=== PATIENT | female | born 1945 | race Caucasian/White ===

== ENCOUNTER → 2017-11-10 08:00 | Outpatient (CLI) | payer MEDICARE, SELFPAY ==
[2017-11-10 09:24] LABS: Thyroid Stimulating Hormone 0.95 uIU/mL (0.47-4.68)
== END ==
PROVIDERS: Family Provider Family Medicine; PCP Family Medicine; Visit Provider Family Medicine
DX: E03.9 Hypothyroidism, unspecified (principal)
CPT/HCPCS: 36415; 84443

== ENCOUNTER → 2018-05-18 08:54 | Outpatient (CLI) | payer MEDICARE, SELFPAY ==
--- NOTE | 2018-05-18 08:56 | DI.RAD.S_ITS ---
PROCEDURE: XR CHEST 2V INDICATIONS: persistent cough TECHNIQUE: 2 views of the chest were acquired. COMPARISON: [facility], CHEST 2 VIEW, 11/22/2010, 9:06. [facility], CHEST 2 VIEW, 06/18/2016, 10:24. FINDINGS: Surgical changes and devices: None. Lungs and pleura: Diffuse, widespread bilateral interstitial opacities are present and appear similar to prior examination. No focal lung consolidation, pleural effusion or pneumothorax. Mediastinum: Mediastinal contours are normal. Heart size is normal. Bones and chest wall: No suspicious bony abnormalities. Soft tissues appear unremarkable. IMPRESSION: Interstitial densities again seen bilaterally which appear similar to prior examination and are likely chronic. Recommend clinical correlation to exclude superimposed acute interstitial process. Dictated by: Derek Byers [facility] Interpreted: Vilma Ramos MD on 05/18/2018 at 9:45 Approved by: Vilma Ramos MD, PhD on 05/18/2018 at 13:09
== END ==
PROVIDERS: Family Provider Family Medicine; PCP Family Medicine; Visit Provider Physician Assistant
DX: R05 Cough (principal); J98.4 Other disorders of lung
CPT/HCPCS: 71046

== ENCOUNTER → 2018-05-21 12:07 | Outpatient (CLI) | payer MEDICARE, SELFPAY ==
[2018-05-21 13:11] LABS: BUN Creatinine Ratio 17.5 (6-22); Blood Urea Nitrogen 21 mg/dL (7-17); Estimated Glomerular Filt Rate 43.8 mL/min (>60)
== END ==
PROVIDERS: Family Provider Family Medicine; PCP Family Medicine; Visit Provider Family Medicine
DX: Z01.812 Encounter for preprocedural laboratory examination (principal)
CPT/HCPCS: 36415; 82565; 84520

== ENCOUNTER → 2018-05-25 11:58 | Outpatient (CLI) | payer MEDICARE, SELFPAY ==
--- NOTE | 2018-05-25 12:02 | DI.CT.S_ITS ---
PROCEDURE: CT CHEST WO CON INDICATIONS: Cough TECHNIQUE: Noncontrast 5 mm thick sections acquired from the pulmonary apices to the posterior costophrenic angles. 7 mm thick coronal and sagittal MIP reformats were then acquired. For radiation dose reduction, the following was used: automated exposure control, adjustment of mA and/or kV according to patient size. COMPARISON: [facility], CT, CHEST ABDOMEN WITH CONTRAST, 08/11/2009, 12:14. FINDINGS: Image quality: Excellent. Lungs and pleura: No acute consolidation. No pleural effusions or pneumothorax. Bilateral upper and lower lobe subpleural reticular and ill-defined/groundglass opacities in keeping with presumed interstitial disease which is unchanged. No definite areas of honeycombing are seen. Central and peripheral airways are patent and normal in caliber. Ill-defined groundglass subcentimeter nodular appearance seen on image 25 series 3 in the right upper lobe is minimally more prominent since remote prior study of 08/11/09. If clinically warranted, a followup noncontrast chest CT in 2 years could be performed for further assessment. Mediastinum: Heart size is normal. No pericardial effusion. Coronary calcifications are seen. Surgical clips in the left upper quadrant. No mediastinal adenopathy by size criteria. Thoracic aorta and central pulmonary arteries are normal in size. Esophagus is normal in caliber. No hiatal hernia. Bones and chest wall: No suspicious bony lesions. No vertebral body compression fractures. No axillary or supraclavicular adenopathy by size criteria. Thyroid gland negative. Abdomen: Visualized upper abdominal solid organs and bowel loops appear normal in the absence of contrast. IMPRESSION: Overall, grossly stable appearance of widespread upper and lower lobe interstitial disease since 08/11/09 as discussed above. No definite areas of honeycombing seen. No acute consolidation. Coronary artery disease. Dictated by: Radames Paredes M.D. on 05/25/2018 at 15:30 Approved by: Radames Paredes M.D. on 05/25/2018 at 15:35
== END ==
PROVIDERS: PCP Family Medicine; Visit Provider Family Medicine
DX: R05 Cough (principal); J84.9 Interstitial pulmonary disease, unspecified; I25.10 Atherosclerotic heart disease of native coronary artery without angina pectoris
CPT/HCPCS: 71250

== ENCOUNTER 2018-05-28 12:11 | Emergency (ER) | payer MEDICARE, SELFPAY ==
[2018-05-28 12:18] VITALS: BP 169/103; PULSE 103; RESP 18; TEMP 36.9; O2SAT 94; BMI 31.9
--- NOTE | 2018-05-28 13:14 | ED.URI ---
HPI - URI/Sore Throat <FARIBA Justice - Last Filed: 05/28/18 21:01> General Chief Complaint: Upper Respiratory Symptoms Stated Complaint: cough since before Thanksgiving Time Seen by Provider: 05/28/18 13:07 Source: patient Mode of arrival: ambulatory Limitations: no limitations History of Present Illness HPI Narrative: 73-year-old female with history of hypertension and is a nonsmoker he here for complaint of a persistent cough over the past several weeks. She reports that the cough started around Thanksgiving time frame. She was seen for this by her primary care provider and also walk-in clinic. She had completed a round of antibiotics which did not help. She was then seen by primary care who ordered a chest x-ray chest x-ray was negative. A CT of the chest was further ordered a few days ago and was obtained and was also negative for any acute findings. Patient denies having any fevers. She does reported that the primary care did treat her with Flonase as she was suspecting that this is due to postnasal drip. Patient has been using the Flonase for the past couple of days. She has no shortness of breath no chest pain. Positive p.o. intake although she does report decreased appetite and some nausea with no vomiting No other concerns or complaints at this timeframe. Patient does desire blood work to ensure no complications. Related Data Home Medications Medication Instructions Recorded Confirmed ASPIRIN (#ASPI-COR) 81 mg PO Q DAY #0 09/11/11 05/18/18 CA PANTOTHENATE/FOLIC ACID/VIT 1 tab PO Q DAY #0 09/11/11 05/18/18 (MULTIVITAMIN) FLAXSEED (FLAXSEED OIL) 1 cap PO Q DAY #0 09/11/11 05/18/18 cholecalciferol (vitamin D3) 2,000 unit PO QDAY #0 01/04/13 05/18/18 [Vitamin D3] Previous Rx's Medication Instructions Recorded levothyroxine 100 mcg capsule 100 mcg PO DAILY #90 tab 11/10/17 atorvastatin [Lipitor] 20 mg PO HS #90 tab 05/05/18 nystatin 100,000 unit/mL oral 5 ml PO QID 10 Days #200 ml 05/25/18 suspension benzonatate [Tessalon Perles] 100 mg PO TID PRN #15 cap 05/28/18 Allergies Allergy/AdvReac Type Severity Reaction Status Date / Time bacitracin [BACITRACIN] Allergy Mild REDNESS Verified 05/28/18 12:18 ADHESIVES Allergy Mild SKIN Uncoded 05/28/18 12:18 IRRITATION Review of Systems <FARIBA Justice - Last Filed: 05/28/18 21:01> Constitutional Denies chills, Denies fever(s), Denies lethargy and Denies weakness Eyes Denies change in vision, Denies eye discharge, Denies irritation and Denies loss of vision ENT Ears, Nose, Mouth, and Throat: Denies change in voice, Denies neck pain, Denies sore throat and Denies throat swelling Cardiovascular Denies chest pain, Denies irregular heart rhythm, Denies lightheadedness, Denies palpitations and Denies orthopnea Respiratory Reports cough and Denies wheezing Gastrointestinal Gastrointestinal: Denies abdominal pain, Denies change in bowel habits, Denies diarrhea, Denies nausea and Denies vomiting Genitourinary Denies hematuria, Denies flank pain, Denies urinary incontinence and Denies urinary urgency Musculoskeletal Denies neck pain Integumentary/Breasts Denies pruritus, Denies erythema, Denies rash and Denies wounds Neurologic Denies confusion, Denies loss of vision and Denies weakness Psychiatric Denies anxiety, Denies confusion, Denies depression, Denies homicidal ideation and Denies suicidal ideation Endocrine Denies palpitations Hematologic/Lymphatic Denies easy bruising Allergic/Immunologic Denies urticaria, Denies throat swelling and Denies wheezing Exam <FARIBA Justice - Last Filed: 05/28/18 21:01> Initial Vital Signs Initial Vital Signs: Vital Signs Temperature 98.4 F 05/28/18 12:18 Pulse Rate 103 H 05/28/18 12:18 Respiratory Rate 18 05/28/18 12:18 Blood Pressure 169/103 H 05/28/18 12:18 Pulse Oximetry 94 05/28/18 12:18 Const General: cooperative and well developed Nutritional Appearance: well nourished Orientation: alert, awake, oriented x3 and not confused HENMT Mouth: oral mucosae normal and moist mucous membranes Eyes Conjunctivae: conjunctivae normal Sclera: sclerae normal Pupils: PERRL EOM: EOM intact bilaterally Resp Effort & Inspection: normal respiratory effort, able to speak in complete sentences, no respiratory distress and no use of accessory muscles Auscultation: clear to auscultation bilaterally, no rales, no rhonchi and no wheezes Cardio Rate: regular rate Rhythm: regular rhythm Heart Sounds: no click, no gallops, no murmurs and no rubs GI Inspection: non-distended Palpation: soft, no hepatosplenomegaly, No guarding, No pulsatile mass and No tender Auscultation: normal bowel sounds Skin General: no rashes or lesions noted, No jaundice and No petechiae Neuro General: alert, oriented x3, gait normal and no focal motor deficits Speech: speech normal <Eula Berman DO - Last Filed: 05/29/18 19:23> Initial Vital Signs Initial Vital Signs: Vital Signs Temperature 98.4 F 05/28/18 12:18 Pulse Rate 103 H 05/28/18 12:18 Respiratory Rate 18 05/28/18 12:18 Blood Pressure 169/103 H 05/28/18 12:18 Pulse Oximetry 94 05/28/18 12:18 Course <FARIBA Justice - Last Filed: 05/28/18 21:01> Orders Ordered: Discontinued Medications Sodium Chloride (Normal Saline 0.9%) 1,000 mls @ 1,000 mls/hr IV BOLUS ONE Stop: 05/28/18 14:37 Last Infusion: 05/28/18 15:08 Dose: 0 mls/hr Admin: 05/28/18 13:58 Dose: 1,000 mls/hr Ondansetron HCl (Zofran) 4 mg IV NOW ONE Stop: 05/28/18 13:39 Last Admin: 05/28/18 13:58 Dose: 4 mg Vital Signs - 8 hr 05/28/18 13:55 05/28/18 15:42 Pulse Rate 89 91 H Respiratory Rate 16 20 Blood Pressure 176/86 H Blood Pressure [Right Arm] 150/86 H Pulse Oximetry 96 100 <Eula Berman DO - Last Filed: 05/29/18 19:23> Orders Ordered: Discontinued Medications Sodium Chloride (Normal Saline 0.9%) 1,000 mls @ 1,000 mls/hr IV BOLUS ONE Stop: 05/28/18 14:37 Last Infusion: 12/20/18 15:08 Dose: 0 mls/hr Admin: 05/28/18 13:58 Dose: 1,000 mls/hr Ondansetron HCl (Zofran) 4 mg IV NOW ONE Stop: 05/28/18 13:39 Last Admin: 05/28/18 13:58 Dose: 4 mg Vital Signs - 8 hr 05/28/18 13:55 05/28/18 15:42 Pulse Rate 89 91 H Respiratory Rate 16 20 Blood Pressure 176/86 H Blood Pressure [Right Arm] 150/86 H Pulse Oximetry 96 100 MDM - URI/Sore Throat <FARIBA Justice - Last Filed: 05/28/18 21:01> Lab Data Result diagrams: 05/28/18 12:58 05/28/18 12:58 Lab Results 05/28/18 05/28/18 Range/Units 12:58 12:58 WBC 10.0 (4.5-11.0) X10^3/uL RBC 4.99 (4.0-5.2) X10^6/uL Hgb 15.3 (12.0-16.0) g/dL Hct 45.6 (36-46) % MCV 91.4 (80-100) fL MCH 30.6 (26-34) PG MCHC 33.5 (30-36) % RDW 13.6 (11.6-14.8) % Plt Count 312 (150-400) X10^3/uL Neut % (Auto) 71.4 (50-75) % Lymph % (Auto) 16.8 L (25-40) % Sebastian % (Auto) 9.0 (3-14) % Eos % (Auto) 2.1 (2-4) % Baso % (Auto) 0.7 (0-2) % Neut # (Auto) 7200 H (1013-2149) /uL Sodium 143 (137-145) mmol/L Potassium 4.4 (3.4-5.1) mmol/L Chloride 103 (98-107) mmol/L Carbon Dioxide 25 (22-32) mmol/L BUN 24 H (7-17) mg/dL Creatinine 1.00 (0.52-1.04) mg/dL Estimated GFR 54.1 L (>60) mL/min BUN/Creatinine Ratio 24.0 H (6-22) Glucose 136 H (80-110) mg/dL Calcium 10.4 H (8.4-10.2) mg/dL Urine Dip Bedside Urine Glucose Negative Bedside Urine Bilirubin - Negative Bedside Urine Ketone - Negative Urine Specific [place] 1.030 Bedside Urine Occult Blood - Negative Bedside Urine pH 6.0 Bedside Urine Protein - Negative Bedside Urine Urobilinogen - Negative Bedside Urine Nitrite - Negative Bedside Urine Leukocytes - Negative Esterase MDM Narrative Medical decision making narrative: Recent x-ray and chest CT were obtained by primary care and were negative for any acute findings. Vital signs are normal. With recent negative chest CT that was negative does not present as being infectious pneumonia at this timeframe. CBC and Chem panel ,poc urinalysis were obtained and were unremarkable with exception of decreased GFR however this is consistent with her prior lab values. Will have her continue using the Flonase as prescribed along with plenty of fluids saline irrigation the nasal passageways. Will at prescription of Tessalon Perles to see if it helps with her cough. Follow up with primary care provider next week. For any worsening symptoms return to the emergency room. <Eula Berman, DO - Last Filed: 05/29/18 19:23> Lab Data Lab Results 05/28/18 05/28/18 Range/Units 12:58 12:58 WBC 10.0 (4.5-11.0) X10^3/uL RBC 4.99 (4.0-5.2) X10^6/uL Hgb 15.3 (12.0-16.0) g/dL Hct 45.6 (36-46) % MCV 91.4 (80-100) fL MCH 30.6 (26-34) PG MCHC 33.5 (30-36) % RDW 13.6 (11.6-14.8) % Plt Count 312 (150-400) X10^3/uL Neut % (Auto) 71.4 (50-75) % Lymph % (Auto) 16.8 L (25-40) % Sebastian % (Auto) 9.0 (3-14) % Eos % (Auto) 2.1 (2-4) % Baso % (Auto) 0.7 (0-2) % Neut # (Auto) 7200 H (0468-2978) /uL Sodium 143 (137-145) mmol/L Potassium 4.4 (3.4-5.1) mmol/L Chloride 103 (98-107) mmol/L Carbon Dioxide 25 (22-32) mmol/L BUN 24 H (7-17) mg/dL Creatinine 1.00 (0.52-1.04) mg/dL Estimated GFR 54.1 L (>60) mL/min BUN/Creatinine Ratio 24.0 H (6-22) Glucose 136 H (80-110) mg/dL Calcium 10.4 H (8.4-10.2) mg/dL Urine Dip Bedside Urine Glucose Negative Bedside Urine Bilirubin - Negative Bedside Urine Ketone - Negative Urine Specific [place] 1.030 Bedside Urine Occult Blood - Negative Bedside Urine pH 6.0 Bedside Urine Protein - Negative Bedside Urine Urobilinogen - Negative Bedside Urine Nitrite - Negative Bedside Urine Leukocytes - Negative Esterase Discharge Plan Departure Patient Disposition: Home Clinical Impression: Cough Discharge Date/Time: 05/28/18 15:43 Interventions: ED Discharge Assessment Last Done: 05/28/18 15:42 Instructions: Cough Activity Restrictions/Additional Instructions: Recent chest x-ray and chest CT were negative for any acute findings. No infectious causes are seen on these imaging. Laboratory results today was unremarkable. Use currently prescribed medications as directed by your primary care provider. May also use saline irrigation to the nasal passages to help with any congestion. Tessalon Perles are prescribed to help with cough use as directed. For any worsening symptoms return to the emergency room. Plenty of fluids and rest. Prescriptions: New benzonatate [Tessalon Perles] 100 mg capsule 100 mg PO TID PRN (Reason: cough) Qty: 15 RF: 0 No Action FLAXSEED (FLAXSEED OIL) 1 cap PO Q DAY Qty: 0 RF: 0 ASPIRIN (#ASPI-COR) 81 mg PO Q DAY Qty: 0 RF: 0 CA PANTOTHENATE/FOLIC ACID/VIT (MULTIVITAMIN) 1 tab PO Q DAY Qty: 0 RF: 0 cholecalciferol (vitamin D3) [Vitamin D3] 2,000 UNIT capsule 2,000 unit PO QDAY Qty: 0 RF: 0 levothyroxine 100 mcg capsule 100 mcg PO DAILY Qty: 90 RF: 3 atorvastatin [Lipitor] 20 mg tablet 20 mg PO HS Qty: 90 RF: 3 nystatin 100,000 unit/mL suspension 5 ml PO QID 10 Days Qty: 200 RF: 0 Referrals: Lizette Clark MD [Primary Care Provider] - <Eula Berman DO - Last Filed: 05/29/18 19:23> Cosign ED Attending Cosignature Attestation: I was immediately available in the department for consultation. This documentation has been reviewed and I agree with assessment and plan. Supervised by Eula Berman DO
[2018-05-28 13:55] VITALS: BP 150/86; PULSE 89; RESP 16; O2SAT 96
[2018-05-28] MEDS: ONDANSETRON 4 MG/2 ML INJ IV (13:58)
[2018-05-28] MEDS: SODIUM CHLORIDE 0.9% 1,000 ML 1000 ML IV (13:58)
[2018-05-28 14:02] LABS: Add Manual Diff / Slide Review NO; Basophils Percent Auto 0.7 % (0-2); Eosinophils Percent Auto 2.1 % (2-4); Hematocrit 45.6 % (36-46); Hemoglobin 15.3 g/dL (12.0-16.0); Lymphocytes Percent Auto 16.8 % (25-40); Mean Corpuscular HGB Conc 33.5 % (30-36); Mean Corpuscular Hemoglobin 30.6 PG (26-34); Mean Corpuscular Volume 91.4 fL (80-100); Neutrophils Absolute Auto 7200 /uL (1500-7000); Neutrophils Percent Auto 71.4 % (50-75); Platelet Count 312 X10^3/uL (150-400); Red Blood Cell Count 4.99 X10^6/uL (4.0-5.2); Red Cell Distribution Width 13.6 % (11.6-14.8)
[2018-05-28 14:07] LABS: Blood Urea Nitrogen 24 mg/dL (7-17); Calcium 10.4 mg/dL (8.4-10.2); Carbon Dioxide 25 mmol/L (22-32); Chloride 103 mmol/L (98-107); Estimated Glomerular Filt Rate 54.1 mL/min (>60); Glucose 136 mg/dL (80-110); HEMOLYSIS 36 (0-50); Potassium 4.4 mmol/L (3.4-5.1); Sodium 143 mmol/L (137-145)
[2018-05-28 15:42] VITALS: BP 176/86; PULSE 91; RESP 20; O2SAT 100
== END 2018-05-28 15:45 | disposition home or self-care (01) ==
PROVIDERS: Emergency Provider Nurse Practitioner Family; PCP Family Medicine
DX: R05 Cough (principal)
CPT/HCPCS: 80048; 81003; 85025; 96361; 96374; 99283; 99284; J2405

== ENCOUNTER → 2018-06-15 08:16 | Outpatient (CLI) | payer MEDICARE, SELFPAY ==
[2018-06-15 09:07] LABS: Hemoglobin A1C% w Est Avg Glu 6.1 % (4.0-6.0)
[2018-06-15 09:12] LABS: Blood Urea Nitrogen 15 mg/dL (7-17); Estimated Glomerular Filt Rate 54.1 mL/min (>60)
[2018-06-15 09:22] LABS: Vitamin D 25 Hydroxy (D3) 70.8 ng/mL (30.0-100.0)
[2018-06-15 09:41] LABS: TSH w/ Reflex to FT4 0.35 uIU/mL (0.47-4.68)
[2018-06-15 09:53] LABS: Vitamin B12 681 pg/mL (239-931)
[2018-06-15 10:07] LABS: Free T4, Direct Thyroxine 1.38 ng/dL (0.78-2.19)
[2018-06-18 09:22] LABS: 5-HIAA, Urine 3.7 mg/24 h (< OR = 6.0); Total Volume 2590 mL
[2018-06-18 17:11] LABS: Total Volume 2590 mL; Urine, Metanephrine 35 mcg/24 h (90-315); Urine, Normetanephrine 274 mcg/24 h (122-676)
[2018-06-20 14:45] LABS: Creatinine, 24 Urine 1.32 g/24 h (0.50-2.15); Total Catecholamines 43 mcg/24 h (26-121); Total Volume: 2590 mL
== END ==
PROVIDERS: Family Provider Family Medicine; PCP Family Medicine; Visit Provider Physician Assistant
DX: R61 Generalized hyperhidrosis (principal); Z01.812 Encounter for preprocedural laboratory examination; E11.9 Type 2 diabetes mellitus without complications; E55.9 Vitamin D deficiency, unspecified
CPT/HCPCS: 36415; 82306; 82384; 82565; 82570; 82607; 83036; 83497; 83835; 84439; 84443; 84520

== ENCOUNTER → 2018-08-06 10:44 | Outpatient (CLI) | payer MEDICARE, SELFPAY ==
[2018-08-06 13:22] LABS: Thyroid Stimulating Hormone 0.78 uIU/mL (0.47-4.68)
== END ==
PROVIDERS: Family Provider Family Medicine; PCP Family Medicine; Visit Provider Family Medicine
DX: E03.9 Hypothyroidism, unspecified (principal)
CPT/HCPCS: 36415; 84443

== ENCOUNTER → 2018-11-17 10:42 | Outpatient (CLI) | payer MEDICARE, SELFPAY ==
[2018-11-17 11:55] LABS: Hemoglobin A1C% w Est Avg Glu 5.9 % (4.0-6.0)
[2018-11-17 12:02] LABS: BUN Creatinine Ratio 18.2 (6-22); Blood Urea Nitrogen 20 mg/dL (7-17); Carbon Dioxide 27 mmol/L (22-32); Chloride 103 mmol/L (98-107); Estimated Glomerular Filt Rate 48.4 mL/min (>60); Glucose 116 mg/dL (80-110); HEMOLYSIS < 15 (0-50); Potassium 4.8 mmol/L (3.4-5.1); Sodium 140 mmol/L (137-145)
[2018-11-17 12:32] LABS: Thyroid Stimulating Hormone 0.51 uIU/mL (0.47-4.68)
[2018-11-17 12:51] LABS: Vitamin B12 600 pg/mL (239-931)
== END ==
PROVIDERS: PCP Family Medicine; Visit Provider Family Medicine
DX: E11.9 Type 2 diabetes mellitus without complications (principal); I12.9 Hypertensive chronic kidney disease with stage 1 through stage 4 chronic kidney disease, or unspecified chronic kidney disease; N18.3 Chronic kidney disease, stage 3 (moderate); R20.2 Paresthesia of skin; E03.9 Hypothyroidism, unspecified
CPT/HCPCS: 36415; 80048; 82607; 83036; 84443

== ENCOUNTER → 2019-03-25 09:17 | Outpatient (CLI) | payer MEDICARE, SELFPAY ==
[2019-03-25 09:46] LABS: Add Manual Diff / Slide Review NO; Basophils Absolute Auto 100 /uL (0-100); Basophils Percent Auto 0.7 % (0-2); Eosinophils Absolute Auto 500 /uL (0-450); Eosinophils Percent Auto 6.4 % (2-4); Hematocrit 43.4 % (36-46); Hemoglobin 14.7 g/dL (12.0-16.0); Lymphocytes Absolute Auto 2000 /uL (1100-4500); Lymphocytes Percent Auto 24.5 % (25-40); Mean Corpuscular HGB Conc 33.8 % (30-36); Mean Corpuscular Hemoglobin 30.7 PG (26-34); Mean Corpuscular Volume 90.7 fL (80-100); Monocytes Absolute Auto 700 /uL (0-900); Monocytes Percent Auto 8.9 % (3-14); Neutrophils Absolute Auto 4700 /uL (1500-7000); Neutrophils Percent Auto 59.5 % (50-75); Platelet Count 230 X10^3/uL (150-400); Red Blood Cell Count 4.79 X10^6/uL (4.0-5.2); Red Cell Distribution Width 13.1 % (11.6-14.8)
[2019-03-25 10:08] LABS: Alanine Aminotransferase 32 IU/L (9-52); Albumin 4.1 g/dL (3.5-5.0); Albumin Globulin Ratio 1.3 (1.0-2.8); Alkaline Phosphatase 74 U/L (38-126); Aspartate Aminotransferase 31 IU/L (14-36); Bilirubin Total 0.6 mg/dL (0.2-1.3); Blood Urea Nitrogen 19 mg/dL (7-17); Calcium 9.8 mg/dL (8.4-10.2); Carbon Dioxide 23 mmol/L (22-32); Chloride 109 mmol/L (98-107); Cholesterol 163 mg/dL (140-199); Estimated Glomerular Filt Rate 53.9 mL/min (>60); Globulin 3.2 g/dL (1.7-4.1); Glucose 134 mg/dL (80-110); HDL Cholesterol 32 mg/dL (40-60); HEMOLYSIS < 15 (0-50); LDL Cholesterol Calculated 80 mg/dL (<100); Potassium 4.4 mmol/L (3.4-5.1); Sodium 140 mmol/L (137-145); Total Protein 7.3 g/dL (6.3-8.2); Triglycerides 254 mg/dL (35-150)
[2019-03-25 10:35] LABS: Thyroid Stimulating Hormone 0.11 uIU/mL (0.47-4.68)
[2019-03-25 11:41] LABS: Creatinine Urine Random 124.1 mg/dL
[2019-03-25 11:47] LABS: Microalbumi Creatinin Ratio Ur 20.9 ug/mg CR (<30); Microalbumin Urine Random 2.6 mg/dL (0-1.6)
[2019-03-25 15:22] LABS: Hemoglobin A1C% w Est Avg Glu 5.9 % (4.0-6.0)
== END ==
PROVIDERS: PCP Family Medicine; Visit Provider Family Medicine
DX: E03.9 Hypothyroidism, unspecified (principal); E11.9 Type 2 diabetes mellitus without complications; E78.2 Mixed hyperlipidemia; I10 Essential (primary) hypertension; N18.3 Chronic kidney disease, stage 3 (moderate)
CPT/HCPCS: 36415; 80053; 80061; 82043; 82570; 83036; 84443; 85025

== ENCOUNTER → 2019-12-14 08:16 | Outpatient (CLI) | payer MEDICARE, SELFPAY ==
[2019-12-14 08:58] LABS: BUN Creatinine Ratio 18.3 (6-22); Blood Urea Nitrogen 19 mg/dL (7-17); Carbon Dioxide 26 mmol/L (22-32); Chloride 107 mmol/L (98-107); Cholesterol 173 mg/dL (140-199); Estimated Glomerular Filt Rate 51.5 mL/min (>60); Glucose 138 mg/dL (80-110); HDL Cholesterol 35 mg/dL (40-60); HEMOLYSIS 18 (0-50); LDL Cholesterol Calculated 95 mg/dL (<100); Potassium 5.3 mmol/L (3.4-5.1); Sodium 140 mmol/L (137-145); Triglycerides 215 mg/dL (35-150)
[2019-12-14 09:15] LABS: Free T4, Direct Thyroxine 1.13 ng/dL (0.78-2.19)
[2019-12-14 09:28] LABS: Thyroid Stimulating Hormone 1.14 uIU/mL (0.47-4.68)
[2019-12-14 14:08] LABS: Aspartate Aminotransferase 40 IU/L (14-36)
== END ==
PROVIDERS: PCP Internal Medicine; Referring Provider Internal Medicine; Visit Provider Internal Medicine
DX: E78.2 Mixed hyperlipidemia (principal); E03.9 Hypothyroidism, unspecified; R03.0 Elevated blood-pressure reading, without diagnosis of hypertension
CPT/HCPCS: 36415; 80048; 80061; 84436; 84439; 84443; 84450

== ENCOUNTER 2019-12-17 07:49 | Inpatient (IN) | payer MEDICARE, SELFPAY ==
[2019-12-17] VITALS (29 sets, daily range): BP systolic 118–208; BP diastolic 71–103; PULSE 70–128; RESP 14–25; TEMP 35.9–37.2; O2SAT 92–96; BMI 30.7
--- NOTE | 2019-12-17 | DI.RAD.S_ITS ---
PROCEDURE: XR HIP W PEL IF DONE LT 2V INDICATIONS: LEFT HIP FX REPAIR TECHNIQUE: Fluoroscopic images were obtained during an operative procedure and submitted for interpretation following the completion of the procedure. COMPARISON: [facility], , XR HIP W PEL IF DONE LT 2V, 12/17/2019, 8:01. FINDINGS: These fluoroscopic images were performed for intraoperative localization. On these images, 3 left femoral neck screws have been placed. Please correlate with intraoperative findings. IMPRESSION: Normal intraoperative examination. Dictated by: Osito Adams M.D. on 12/17/2019 at 15:06 Approved by: Osito Adams M.D. on 12/17/2019 at 15:06
--- NOTE | 2019-12-17 08:07 | DI.RAD.S_ITS ---
PROCEDURE: XR HIP W PEL IF DONE LT 2V INDICATIONS: fall with hip pain TECHNIQUE: AP pelvis with lateral view(s) of the left hip(s). COMPARISON: None. FINDINGS: Bones: Contour irregularity involving subcapital region of left femoral neck concerning for left femoral neck fracture. Lateral hip joint osteophytic changes are seen. No evidence of avascular necrosis of femoral head. Pelvic ring appears intact. No suspicious bony lesions. Soft tissues: The visualized bowel gas pattern is normal. No suspicious soft tissue calcifications. IMPRESSION: Finding is concerning for a minimally displaced left femoral neck fracture. Dictated by: Caden Millan M.D. on 12/17/2019 at 8:45 Approved by: Caden Millan M.D. on 12/17/2019 at 8:46
--- NOTE | 2019-12-17 08:32 | ED_ITS ---
HPI - Fall General Chief Complaint: Fall Stated Complaint: FALL LAST NIGHT Time Seen by Provider: 12/17/19 07:50 Source: patient Mode of arrival: Wheelchair Limitations: no limitations History of Present Illness HPI Narrative: 74-year-old femaleNonsmoker with a history of hypothyroidism, hypertension and hyperlipidemia presents with her and a chief complaint of left hip pain after an accidental fall yesterday. She was caring multiple items down some stairs and her hands were full and she misstepped and fell onto her left hip. She denies any head, neck or back pain. She takes no blood thinners. She had breakfast at about 7:00 a.m. but has been NPO since. She has pain with range of motion and improvement with rest. She denies numbness, tingling or weakness. MD complaint: fall Onset (ago): hour(s) Fall from: standing Fall witnessed: no Place fall occurred: home Loss of consciousness: none Prolonged down time: no Symptoms prior to fall: none Context: tripped/slipped Location of injury: pelvis Severity: moderate Quality: aching Associated symptoms (after fall): unable to walk Related Data Home Medications Medication Instructions Recorded Confirmed ASPIRIN (#ASPI-COR) 81 mg PO Q DAY #0 09/11/11 12/17/19 CA PANTOTHENATE/FOLIC ACID/VIT 1 tab PO Q DAY #0 09/11/11 12/17/19 (MULTIVITAMIN) FLAXSEED (FLAXSEED OIL) 1 cap PO Q DAY #0 09/11/11 12/17/19 cholecalciferol (vitamin D3) 2,000 unit PO QDAY #0 01/04/13 12/17/19 [Vitamin D3] calcium carbonate [Calcium 500] 1,000 mg PO DAILY 12/17/19 12/17/19 Previous Rx's Medication Instructions Recorded cetirizine 10 mg capsule 10 mg PO DAILY #30 cap 06/12/18 atorvastatin [Lipitor] 20 mg PO HS #90 tab 11/19/18 levothyroxine 100 mcg tablet 100 mcg PO DAILY #60 tab 03/31/19 levothyroxine 88 mcg capsule 88 mcg PO DAILY #60 cap 03/31/19 Allergies Allergy/AdvReac Type Severity Reaction Status Date / Time bacitracin [BACITRACIN] Allergy Mild REDNESS Verified 07/10/20 08:01 ADHESIVES Allergy Mild SKIN Uncoded 03/31/19 13:37 IRRITATION Review of Systems Constitutional Constitutional: Denies chills, Denies fatigue, Denies fever(s), Denies frequent falls, Denies lethargy and Denies weakness Eyes Eyes: Denies change in vision, Denies eye discharge, Denies irritation and Denies loss of vision ENT Ears, Nose, Mouth, and Throat: Denies change in voice, Denies dizziness, Denies neck pain, Denies sore throat and Denies throat swelling Cardiovascular Cardiovascular: Denies chest pain, Denies irregular heart rhythm, Denies lightheadedness, Denies palpitations, Denies dyspnea, Denies dyspnea on exertion and Denies orthopnea Respiratory Respiratory: Denies cough, Denies dyspnea, Denies dyspnea on exertion and Denies wheezing Gastrointestinal Gastrointestinal: Denies abdominal pain, Denies change in bowel habits, Denies diarrhea, Denies nausea and Denies vomiting Musculoskeletal Musculoskeletal: Reports arthralgias, Reports limited range of motion, Denies neck pain and Denies numbness Integumentary/Breasts Skin/Breast: Denies pruritus, Denies erythema, Denies rash and Denies wounds Neurologic Neurologic: Denies behavioral changes, Denies confusion, Denies dizziness, Denies frequent falls, Denies loss of vision, Denies numbness and Denies weakness Psychiatric Psychiatric: Denies anxiety, Denies behavioral changes, Denies confusion, Denies depression, Denies homicidal ideation and Denies suicidal ideation Endocrine Endocrine: Denies fatigue, Denies flushing and Denies palpitations Hematologic/Lymphatic Hematologic/Lymphatic: Denies easy bruising Allergic/Immunologic Allergic/Immunologic: Denies urticaria, Denies throat swelling and Denies wheezing Patient History Medical History BCC (basal cell carcinoma of skin) (Resolved 1994) Colon polyps (Resolved 1999) Hayfever (Chronic 1969) Interstitial lung disease (Acute) Kidney tumor (benign) (Resolved 08/11/09) Surgical History Anesthesia (Resolved) History of cataract removal with insertion of prosthetic lens (Resolved 2004) History of hysteroscopy (Resolved) History of nephrectomy (Resolved 08/11/09) Status post colonoscopy (Resolved) Family History Brother No problems noted. Father Lung cancer Mother Uterine cancer Social History marital status: number of children: 2 household members: spouse lives independently: Yes caregiver/support person: No housing: house Smoking Status: Never smoker second hand exposure: No alcohol intake: never substance use type: does not use Smoking Status: Never smoker alcohol intake frequency: holidays/special occasions only Substance Use Type: does not use Exam Narrative Exam Narrative: GENERAL: [74] year old patient appears stated age. Well- nourished, well-developed patient, in mild distress. HEAD: Atraumatic. Normocephalic. EYES: Pupils equal round and reactive. Extraocular motions intact. No scleral icterus. No injection or drainage. ENT: Nose without bleeding, purulent drainage. Throat without erythema, tonsillar hypertrophy or exudate. Airway patent. NECK: Trachea midline. Non tender CARDIOVASCULAR: Regular rate and rhythm without murmurs, gallops, or rubs. RESPIRATORY: Clear to auscultation. Breath sounds equal bilaterally. No wheezes, rales, or rhonchi. GASTROINTESTINAL: Abdomen soft, non-tender, nondistended. EXTREMITIES: Left hip tender to palpate, closed, isolated and neurovascularly intact. No obvious shortening or rotation BACK: Nontender without deformity or crepitance. No flank tenderness. NEURO: AOx3. SKIN: No rash or erythema of visible areas Initial Vital Signs Initial Vital Signs: Vital Signs Temperature 98.8 F 12/17/19 07:50 Pulse Rate 91 H 12/17/19 07:50 Respiratory Rate 15 12/17/19 07:50 Blood Pressure 208/103 H 12/17/19 07:50 Pulse Oximetry 93 12/17/19 07:50 Course Orders Ordered: ED Orders 12/17/19 08:05 Complete Blood Count AUTO DIFF Stat 12/17/19 08:07 XR hip w pel if done LT 2V Stat 12/17/19 09:17 Urinalysis and Microscopic Stat Urine Culture Stat 12/17/19 10:45 Basic Metabolic Panel Stat Lactated Ringer's (Lactated Ringers) 1,000 mls @ 42 mls/hr IV CONT SHADI Last Admin: 12/17/19 10:16 Dose: 42 mls/hr Documented by: IDA Discontinued Medications Acetaminophen (Tylenol) 975 mg PO NOW ONE Stop: 12/17/19 09:51 Last Admin: 12/17/19 10:15 Dose: 975 mg Documented by: IDA Diazepam (Valium) 2 mg IV NOW ONE Stop: 12/17/19 09:31 Last Admin: 12/17/19 09:36 Dose: 2 mg Documented by: IDA Gabapentin (Neurontin) 300 mg PO NOW ONE Stop: 12/17/19 09:51 Last Admin: 12/17/19 10:26 Dose: 300 mg Documented by: IDA Sodium Chloride (Normal Saline 0.9%) 500 mls @ 1,000 mls/hr IV BOLUS ONE Stop: 12/17/19 09:02 Last Infusion: 12/17/19 10:13 Dose: 0 mls/hr Documented by: Infusion: 12/17/19 09:36 Dose: 500 mls/hr Documented by: Infusion: 12/17/19 09:00 Dose: 150 mls/hr Documented by: Admin: 12/17/19 08:53 Dose: 1,000 mls/hr Documented by: JAQUELIN Ceftriaxone Sodium/Dextrose (Rocephin) 1 gm in 50 mls @ 100 mls/hr IV NOW ONE Stop: 12/17/19 10:32 Last Infusion: 12/17/19 10:47 Dose: 0 mls/hr Documented by: Admin: 12/17/19 10:15 Dose: 100 mls/hr Documented by: IDA Consultations Consultation #1: discussed with Dr. Griffith, he will add her on this afternoon Consultation #2: Dr. Hebert happy to accept Vital Signs Vital signs: Vital Signs - 8 hr 12/17/19 07:50 12/17/19 08:04 12/17/19 08:30 Temperature 98.8 F Pulse Rate 91 H 107 H 102 H Respiratory Rate 15 Blood Pressure 208/103 H 161/72 H Pulse Oximetry 93 96 95 12/17/19 09:00 12/17/19 09:01 12/17/19 09:30 Temperature Pulse Rate 105 H 102 H 101 H Respiratory Rate Blood Pressure 181/96 H Pulse Oximetry 94 94 94 12/17/19 09:31 12/17/19 09:39 12/17/19 10:00 Temperature Pulse Rate 100 H 100 H 94 H Respiratory Rate Blood Pressure 201/86 H 194/86 H Pulse Oximetry 95 93 93 12/17/19 10:01 12/17/19 10:30 12/17/19 10:31 Temperature Pulse Rate 70 94 H 81 Respiratory Rate Blood Pressure 169/77 H 171/82 H Pulse Oximetry 95 95 94 MDM - Fall Lab Data Result diagrams: 12/17/19 08:05 12/17/19 10:45 Labs: Lab Results 12/17/19 12/17/19 12/17/19 Range/Units 08:05 08:50 09:17 WBC 14.8 H (4.5-11.0) X10^3/uL RBC 4.84 (4.0-5.2) X10^6/uL Hgb 14.9 (12.0-16.0) g/dL Hct 44.3 (36-46) % MCV 91.5 (80-100) fL MCH 30.7 (26-34) PG MCHC 33.6 (30-36) % RDW 13.4 (11.6-14.8) % Plt Count 221 (150-400) X10^3/uL Neut % (Auto) 81.8 H (50-75) % Lymph % (Auto) 7.8 L (25-40) % [place] % (Auto) 6.7 (3-14) % Eos % (Auto) 3.3 (2-4) % Baso % (Auto) 0.4 (0-2) % Neut # (Auto) 04621 H (6881-0238) /uL Lymph # (Auto) 1100 (4939-6478) /uL [place] # (Auto) 1000 H (0-900) /uL Eos # (Auto) 500 H (0-450) /uL Baso # (Auto) 100 (0-100) /uL Sodium (137-145) mmol/L Potassium (3.4-5.1) mmol/L Chloride (98-107) mmol/L Carbon Dioxide (22-32) mmol/L BUN (7-17) mg/dL Creatinine (0.52-1.04) mg/dL Estimated GFR (>60) mL/min BUN/Creatinine Ratio (6-22) Glucose (80-110) mg/dL Calcium (8.4-10.2) mg/dL Urine Color Yellow Urine Appearance Sl cloudy Urine pH 6.5 (4.5-8.0) Ur Specific [place] 1.015 (1.000-1.035) Urine Protein Negative (Negative) Urine Glucose (UA) Negative (Negative) g/dL Urine Ketones Negative (NEGATIVE) Urine Occult Blood Trace-intact (Negative) Urine Nitrate Positive H (Negative) Urine Bilirubin Negative (NEGATIVE) Urine Urobilinogen 0.2 (0.2) E.U./dL Ur Leukocyte Esterase Trace H (NEGATIVE) Urine RBC 0-1/hpf (0-5/HPF) Urine WBC 5-10/hpf H (0-5/HPF) Urine Bacteria Many (>30) H (None) Ur Culture Indicated? Specimen cultured COVID-19 PCR Negative (Negative) 12/17/19 Range/Units 10:45 WBC (4.5-11.0) X10^3/uL RBC (4.0-5.2) X10^6/uL Hgb (12.0-16.0) g/dL Hct (36-46) % MCV (80-100) fL MCH (26-34) PG MCHC (30-36) % RDW (11.6-14.8) % Plt Count (150-400) X10^3/uL Neut % (Auto) (50-75) % Lymph % (Auto) (25-40) % [place] % (Auto) (3-14) % Eos % (Auto) (2-4) % Baso % (Auto) (0-2) % Neut # (Auto) (7873-1259) /uL Lymph # (Auto) (7797-6516) /uL [place] # (Auto) (0-900) /uL Eos # (Auto) (0-450) /uL Baso # (Auto) (0-100) /uL Sodium 140 (137-145) mmol/L Potassium 4.0 D (3.4-5.1) mmol/L Chloride 107 (98-107) mmol/L Carbon Dioxide 25 (22-32) mmol/L BUN 15 (7-17) mg/dL Creatinine 0.89 (0.52-1.04) mg/dL Estimated GFR > 60.0 (>60) mL/min BUN/Creatinine Ratio 16.9 (6-22) Glucose 158 H (80-110) mg/dL Calcium 9.7 (8.4-10.2) mg/dL Urine Color Urine Appearance Urine pH (4.5-8.0) Ur Specific [place] (1.000-1.035) Urine Protein (Negative) Urine Glucose (UA) (Negative) g/dL Urine Ketones (NEGATIVE) Urine Occult Blood (Negative) Urine Nitrate (Negative) Urine Bilirubin (NEGATIVE) Urine Urobilinogen (0.2) E.U./dL Ur Leukocyte Esterase (NEGATIVE) Urine RBC (0-5/HPF) Urine WBC (0-5/HPF) Urine Bacteria (None) Ur Culture Indicated? COVID-19 PCR (Negative) Imaging Data Pelvis Xray : Attestation: I personally reviewed and interpreted this imaging study as follows: My Impression: Left Hip Fx Discharge Plan Departure Patient Disposition: Admitted As Inpatient Clinical Impression: Acute UTI Closed hip fracture Qualifiers: Encounter type: initial encounter Laterality: left Qualified Code(s): S72.002A - Fracture of unspecified part of neck of left femur, initial encounter for closed fracture Referrals: Dorian Villa MD [Primary Care Provider] - Admit Date/Time: 12/17/19 11:24 Admit Provider: Agnes Hebert
[2019-12-17 08:45] LABS: Add Manual Diff / Slide Review NO; Basophils Absolute Auto 100 /uL (0-100); Basophils Percent Auto 0.4 % (0-2); Eosinophils Absolute Auto 500 /uL (0-450); Eosinophils Percent Auto 3.3 % (2-4); Hematocrit 44.3 % (36-46); Hemoglobin 14.9 g/dL (12.0-16.0); Lymphocytes Absolute Auto 1100 /uL (1100-4500); Lymphocytes Percent Auto 7.8 % (25-40); Mean Corpuscular HGB Conc 33.6 % (30-36); Mean Corpuscular Hemoglobin 30.7 PG (26-34); Mean Corpuscular Volume 91.5 fL (80-100); Monocytes Absolute Auto 1000 /uL (0-900); Monocytes Percent Auto 6.7 % (3-14); Neutrophils Absolute Auto 12100 /uL (1500-7000); Neutrophils Percent Auto 81.8 % (50-75); Platelet Count 221 X10^3/uL (150-400); Red Blood Cell Count 4.84 X10^6/uL (4.0-5.2); Red Cell Distribution Width 13.4 % (11.6-14.8); White Blood Cell Count 14.8 X10^3/uL (4.5-11.0)
[2019-12-17] MEDS: SODIUM CHLORIDE 0.9% 500 ML 1000 ML IV (08:53)
[2019-12-17] MEDS: diazePAM 10 MG/2 ML SYRINGE 2 MG IV (09:36)
[2019-12-17 09:39] LABS: Appearance Urine UA SL CLOUDY; Bilirubin Urine UA NEGATIVE (NEGATIVE); Color Urine UA YELLOW; Glucose Urine UA NEGATIVE (Negative); Ketones Urine UA NEGATIVE (NEGATIVE); Leukocyte Esterase Urine UA TRACE (NEGATIVE); Nitrite Urine UA POSITIVE (Negative); Occult Blood Urine UA TRACE-INTACT (Negative); Protein Urine UA NEGATIVE (Negative); Specific Gravity Urine UA 1.015 (1.000-1.035); Urobilinogen Urine UA 0.2 E.U./dL (0.2)
[2019-12-17 09:56] LABS: Bacteria Urine Many (>30); RBC Urine 0-1/HPF (0-5/HPF); WBC Urine 5-10/HPF (0-5/HPF); pH Urine UA 6.5 (4.5-8.0)
[2019-12-17 09:57] LABS: Culture Indicated Urine Specimen Cultured
[2019-12-17 09:58] LABS: COVID19 -Nasal RAPID Negative (Negative)
[2019-12-17] MEDS: ACETAMINOPHEN 325 MG TABLET 975 MG PO (10:15)
[2019-12-17] MEDS: CEFTRIAXONE 1 GM/50 ML FROZ.PIGGY IV (10:15)
[2019-12-17] MEDS: LACTATED RINGERS 1,000 ML 42 ML IV ×2 (10:16→14:16)
[2019-12-17] MEDS: GABAPENTIN 300 MG CAPSULE PO (10:26)
--- NOTE | 2019-12-17 11:02 | PC.NURSE ---
Pt resting in stretcher. denies pain at this time. states she was walking down the stairs carrying something yesterday and she fell on her L hip. No shortening or external rotation. 2+ pulse. +CSM. 16F lewis placed. 1100ml output over 2hrs. tylenol, valium, gabapentin given for pain and spasms. Rocephin given per order. LR infusing at 42ml/hr. awaiting bed placement in acute care for surgery.
[2019-12-17 11:04] LABS: BUN Creatinine Ratio 16.9 (6-22); Blood Urea Nitrogen 15 mg/dL (7-17); Calcium 9.7 mg/dL (8.4-10.2); Carbon Dioxide 25 mmol/L (22-32); Chloride 107 mmol/L (98-107); Estimated Glomerular Filt Rate > 60.0 mL/min (>60); Glucose 158 mg/dL (80-110); HEMOLYSIS < 15 (0-50); Sodium 140 mmol/L (137-145)
--- NOTE | 2019-12-17 12:56 | PM.HP.1 ---
History of Present Illness History of Present Illness Date Patient Seen: 12/17/19 Chief complaint: FALL LAST NIGHT Narrative: The patient is a 74-year-old female with a history of hypertension, hypothyroidism, hyperlipidemia, type 2 diabetes, chronic kidney disease, who was walking down the stairs and tripped and fell. Patient states she has been having pain with her left knee. She is not sure whether her knee gave out. In any event she fell suffering a fracture of the left hip. She denies passing out, she reports no lightheadedness, she did not hit her head. She was somewhat ?dazed after the event. The patient does report a history of hypertension but is not currently on treatment. She also states she has no dysuria hematuria or pyuria. She is aware that her urine was cloudy in the emergency department. She has no shortness of breath or chest pain. She denies any palpitations but is aware of an intermittent irregular heartbeat. Patient has no nausea vomiting or diarrhea. She is admitted to the hospital for inpatient treatment of her acute hip fracture. Patient History Medical History (Updated 12/17/19 @ 13:01 by Agnes Hebert MD) Acquired hypothyroidism (03/29/15) BCC (basal cell carcinoma of skin) (Resolved 1994) Colon polyps (Resolved 1999) Essential hypertension (03/29/15) Hayfever (Chronic 1969) History of colonic polyps (01/30/17) Interstitial lung disease (Acute) Kidney tumor (benign) (Resolved 08/11/09) Mixed hyperlipidemia (03/29/15) Stage 3 chronic kidney disease (03/29/15) Type 2 diabetes mellitus without complication (03/29/15) Surgical History Anesthesia (Resolved) History of cataract removal with insertion of prosthetic lens (Resolved 2004) History of hysteroscopy (Resolved) History of nephrectomy (Resolved 08/11/09) Status post colonoscopy (Resolved) Family & Social History Family History Brother No problems noted. Father Lung cancer Mother Uterine cancer Social History: household members spouse lives independently Yes caregiver/support person No Safety & Behavioral: Feels Safe in Current Yes Environment Been Physically Hurt or No Threatened By a Person Tobacco & Substance use: Smoking Status Never smoker alcohol intake never alcohol intake frequency holiday/special occasion Substance Use Type does not use Meds Home Medications and Allergies Home Medications Medication Instructions Recorded Confirmed Type ASPIRIN (#ASPI-COR) 81 mg PO Q DAY #0 09/11/11 12/17/19 History CA PANTOTHENATE/FOLIC ACID/VIT 1 tab PO Q DAY #0 09/11/11 12/17/19 History (MULTIVITAMIN) FLAXSEED (FLAXSEED OIL) 1 cap PO Q DAY #0 09/11/11 12/17/19 History cholecalciferol (vitamin D3) 2,000 unit PO QDAY #0 01/04/13 12/17/19 History [Vitamin D3] cetirizine 10 mg capsule 10 mg PO DAILY #30 cap 06/12/18 12/17/19 Rx atorvastatin [Lipitor] 20 mg PO HS #90 tab 11/19/18 12/17/19 Rx calcium carbonate [Calcium 500] 1,000 mg PO DAILY 12/17/19 12/17/19 History levothyroxine See Rx Instructions .ROUTE .COMPLEX 12/17/19 12/17/19 History levothyroxine See Rx Instructions .ROUTE .COMPLEX 12/17/19 12/17/19 History Allergies Allergy/AdvReac Type Severity Reaction Status Date / Time bacitracin [BACITRACIN] Allergy Mild REDNESS Verified 12/17/19 08:01 ADHESIVES Allergy Mild SKIN Uncoded 03/31/19 13:37 IRRITATION Review of Systems Review of Systems ROS: Yes All systems reviewed with the patient and are negative except as otherwise documented Exam Vital Signs (past 8 hours): - 12/17/19 07:50 12/17/19 08:04 12/17/19 08:30 Temperature 98.8 F Pulse Rate 91 H 107 H 102 H Respiratory Rate 15 Blood Pressure 208/103 H 161/72 H Pulse Oximetry 93 96 95 12/17/19 09:00 12/17/19 09:01 12/17/19 09:30 Temperature Pulse Rate 105 H 102 H 101 H Respiratory Rate Blood Pressure 181/96 H Pulse Oximetry 94 94 94 12/17/19 09:31 12/17/19 09:39 12/17/19 10:00 Temperature Pulse Rate 100 H 100 H 94 H Respiratory Rate Blood Pressure 201/86 H 194/86 H Pulse Oximetry 95 93 93 12/17/19 10:01 12/17/19 10:30 12/17/19 10:31 Temperature Pulse Rate 70 94 H 81 Respiratory Rate Blood Pressure 169/77 H 171/82 H Pulse Oximetry 95 95 94 12/17/19 11:00 12/17/19 11:30 12/17/19 12:10 Temperature 98.2 F Pulse Rate 98 H 88 128 H Respiratory Rate 16 Blood Pressure 173/79 H 160/74 H 149/97 H Pulse Oximetry 93 93 95 Oxygen Delivery Method Room Air Oxygen Flow Rate 0 Narrative Exam Narrative: Pleasant female resting comfortably in no obvious distress. Patient denies any pain HEENT: Normocephalic atraumatic extraocular muscles are intact oropharynx is clear, neck is supple, no adenopathy or thyromegaly Lungs: Coarse breath sounds bilaterally, no crackles, no wheezing Cardiac exam irregular, normal S1-S2 2/6 systolic ejection murmur Abdomen: Soft nontender nondistended no hepatosplenomegaly Extremities: No edema, left hip not tender, patient is able to raise both lower extremities minimally. Neuro exam patient is awake alert and oriented, speech is fluent cranial nerves are intact strength is symmetric and equal in the upper extremities she is able to lift the right lower extremity, not so much on the left. Sensation is grossly intact, gait is not assessed Psychiatric exam: Patient is awake alert and appropriate, she has no delusions, no tics, no evidence of hallucination Skin exam no obvious lesions Objective Labs Result Diagrams: 12/17/19 08:05 12/17/19 10:45 Labs: Laboratory Results - last 24 hr 12/17/19 12/17/19 12/17/19 08:05 08:50 09:17 WBC 14.8 H RBC 4.84 Hgb 14.9 Hct 44.3 MCV 91.5 MCH 30.7 MCHC 33.6 RDW 13.4 Plt Count 221 Neut % (Auto) 81.8 H Lymph % (Auto) 7.[address] [place] % (Auto) 6.7 Eos % (Auto) 3.3 Baso % (Auto) 0.4 Neut # (Auto) 81736 H Lymph # (Auto) 1100 [place] # (Auto) 1000 H Eos # (Auto) 500 H Baso # (Auto) 100 Sodium Potassium Chloride Carbon Dioxide BUN Creatinine Estimated GFR BUN/Creatinine Ratio Glucose Calcium Urine Color Yellow Urine Appearance Sl cloudy Urine pH 6.5 Ur Specific [place] 1.015 Urine Protein Negative Urine Glucose (UA) Negative Urine Ketones Negative Urine Occult Blood Trace-intact Urine Nitrate Positive H Urine Bilirubin Negative Urine Urobilinogen 0.2 Ur Leukocyte Esterase Trace H Urine RBC 0-1/hpf Urine WBC 5-10/hpf H Urine Bacteria Many (>30) H Ur Culture Indicated? Specimen cultured COVID-19 PCR Negative 12/17/19 10:45 WBC RBC Hgb Hct MCV MCH MCHC RDW Plt Count Neut % (Auto) Lymph % (Auto) [place] % (Auto) Eos % (Auto) Baso % (Auto) Neut # (Auto) Lymph # (Auto) [place] # (Auto) Eos # (Auto) Baso # (Auto) Sodium 140 Potassium 4.0 D Chloride 107 Carbon Dioxide 25 BUN 15 Creatinine 0.89 Estimated GFR > 60.0 BUN/Creatinine Ratio 16.9 Glucose 158 H Calcium 9.7 Urine Color Urine Appearance Urine pH Ur Specific [place] Urine Protein Urine Glucose (UA) Urine Ketones Urine Occult Blood Urine Nitrate Urine Bilirubin Urine Urobilinogen Ur Leukocyte Esterase Urine RBC Urine WBC Urine Bacteria Ur Culture Indicated? COVID-19 PCR Assessment & Plan Assessment & Plan narrative: Impression 1. 74-year-old female admitted to the hospital following a fall, now with a left hip fracture -x-ray confirms a minimally displaced left femoral neck fracture -suspect the fractures related to underlying osteoporosis -patient previously on calcium and vitamin-D as an outpatient a but no bisphosphonate -possible knee injury contributing -patient is scheduled for definitive surgical repair today -will obtain x-rays of her knee prior to discharge -aspirin b.i.d. for DVT prophylaxis -will hold calcium and vitamin-D in the hospital 2. Hypertension -patient currently not on treated -will observe her blood pressure here once pain is controlled -discussed initiating treatment with the patient for which she is amenable to do 3. Type 2 diabetes -patient reports hemoglobin A1c has been normal -she has been told she is a borderline diabetic -will continue intensive nutrition therapy -will check hemoglobin A1c 4. Hypothyroid -patient takes 100 mcg alternating with 88 mcg per day of levothyroxine -will check TSH urine hospital 5. Hyperlipidemia -continue atorvastatin 6. Urinary tract infection -patient is currently asymptomatic -urine positive for nitrites leukocyte esterase and wbc's, sent for culture -patient received 1 dose of ceftriaxone in the emergency room -will adjust antibiotic to oral once cultures are back starting tomorrow 7. History of interstitial lung disease -no treatment indicated Patient will be scheduled for physical therapy and occupational therapy, discharge planning has been notified, patient is on DVT prophylaxis. Twelve lead EKG has been obtained. Patient does have an irregular rhythm however she is in sinus rhythm with no evidence of a tachy arrhythmia Patient indicates she is a full code. Will note that her record accordingly. Her is her surrogate DPOA. Primary care provider is Dr. Villa.
--- NOTE | 2019-12-17 13:00 | PT-IP ANOTE ---
pt with scheduled hip surgery later today and will await new PT eval order post-op
--- NOTE | 2019-12-17 13:59 | PC.NURSE ---
PATIENT ADMITTED TO 216. EKG COMPLETED. NSR. NPO SINCE 0700. PATIENT HAS JUST LEFT TO OR FOR SURGERY
--- NOTE | 2019-12-17 14:10 | SUR.OPER ---
Supine on padded [place] table with operative leg secured in padded positioning boot and suspended in positioning spar, operative leg in traction per surgeon. Nonoperative leg secured to padded knee rest. Head on one pillow. Arm on non-operative side secured on padded armboard <90 degrees abduction. Arm on operative side padded and resting across chest then secured with tape over sheet. Padded perineal post in place per surgeon.
--- NOTE | 2019-12-17 14:12 | P.HP_ITS ---
History of Present Illness History of Present Illness Date Patient Seen: 12/17/19 Time Patient Seen: 14:12 Chief complaint: FALL LAST NIGHT Narrative: 74-year-old female status post fall at home onto her left hip. Immediate onset of pain follow-up was able to ambulate and in fact get up the stairs last night. She came to the emergency room this morning due to in creasing pain with weight-bearing. Admitted through the emergency room after x- rays demonstrated a valgus impacted femoral neck fracture on the left. 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 Father Lung cancer Mother Uterine cancer Social History: household members spouse Prior Living Arrangements House lives independently Yes caregiver/support person No Safety & Behavioral: Feels Safe in Current Yes Environment Been Physically Hurt or No Threatened By a Person Suicidal Ideation Description None Suicide Plan Description No Plan Tobacco & Substance use: Smoking Status Never smoker alcohol intake never alcohol intake frequency holiday/special occasion Substance Use Type does not use Meds Home Medications and Allergies Home Medications Medication Instructions Recorded Confirmed Type ASPIRIN (#ASPI-COR) 81 mg PO Q DAY #0 09/11/11 12/17/19 History CA PANTOTHENATE/FOLIC ACID/VIT 1 tab PO Q DAY #0 09/11/11 12/17/19 History (MULTIVITAMIN) FLAXSEED (FLAXSEED OIL) 1 cap PO Q DAY #0 09/11/11 12/17/19 History cholecalciferol (vitamin D3) 2,000 unit PO QDAY #0 01/04/13 12/17/19 History [Vitamin D3] cetirizine 10 mg capsule 10 mg PO DAILY #30 cap 06/12/18 12/17/19 Rx atorvastatin [Lipitor] 20 mg PO HS #90 tab 11/19/18 12/17/19 Rx calcium carbonate [Calcium 500] 1,000 mg PO DAILY 12/17/19 12/17/19 History levothyroxine See Rx Instructions .ROUTE .COMPLEX 12/17/19 12/17/19 History levothyroxine See Rx Instructions .ROUTE .COMPLEX 12/17/19 12/17/19 History Allergies Allergy/AdvReac Type Severity Reaction Status Date / Time adhesive tape Allergy Mild SKIN Verified 12/17/19 13:19 IRRITATION bacitracin [BACITRACIN] Allergy Mild REDNESS Verified 12/17/19 08:01 Review of Systems Review of Systems ROS: Yes All systems reviewed with the patient and are negative except as otherwise documented Exam Vital Signs (past 8 hours): - 12/17/19 07:50 12/17/19 08:04 12/17/19 08:30 Temperature 98.8 F Pulse Rate 91 H 107 H 102 H Respiratory Rate 15 Blood Pressure 208/103 H 161/72 H Pulse Oximetry 93 96 95 12/17/19 09:00 12/17/19 09:01 12/17/19 09:30 Temperature Pulse Rate 105 H 102 H 101 H Respiratory Rate Blood Pressure 181/96 H Pulse Oximetry 94 94 94 12/17/19 09:31 12/17/19 09:39 12/17/19 10:00 Temperature Pulse Rate 100 H 100 H 94 H Respiratory Rate Blood Pressure 201/86 H 194/86 H Pulse Oximetry 95 93 93 12/17/19 10:01 12/17/19 10:30 12/17/19 10:31 Temperature Pulse Rate 70 94 H 81 Respiratory Rate Blood Pressure 169/77 H 171/82 H Pulse Oximetry 95 95 94 12/17/19 11:00 12/17/19 11:30 12/17/19 12:10 Temperature 98.2 F Pulse Rate 98 H 88 128 H Respiratory Rate 16 Blood Pressure 173/79 H 160/74 H 149/97 H Pulse Oximetry 93 93 95 07/10/20 14:02 Temperature 99.0 F Pulse Rate 88 Respiratory Rate 16 Blood Pressure 163/89 H Pulse Oximetry 96 Oxygen Delivery Method Room Air Oxygen Flow Rate 0 Narrative Exam Narrative: Afebrile and vital signs stable. Awake alert oriented and c onversant. No obvious discomfort lying in [facility] in the preop area. HEENT normocephalic atraumatic. Lungs clear to auscultation. Heart regular rate rhythm. Abdomen benign. Extremities benign with the exception of the left lower extremity tenderness over the lateral side of the left hip and pain with any movement. Distal neurovascular examination is intact. Objective Labs Result Diagrams: 12/17/19 08:05 12/17/19 10:45 Labs: Laboratory Results - last 24 hr 12/17/19 12/17/19 12/17/19 08:05 08:50 09:17 WBC 14.8 H RBC 4.84 Hgb 14.9 Hct 44.3 MCV 91.5 MCH 30.7 MCHC 33.6 RDW 13.4 Plt Count 221 Neut % (Auto) 81.8 H Lymph % (Auto) 7.8 L [place] % (Auto) 6.7 Eos % (Auto) 3.3 Baso % (Auto) 0.4 Neut # (Auto) 59362 H Lymph # (Auto) 1100 [place] # (Auto) 1000 H Eos # (Auto) 500 H Baso # (Auto) 100 Sodium Potassium Chloride Carbon Dioxide BUN Creatinine Estimated GFR BUN/Creatinine Ratio Glucose Calcium Urine Color Yellow Urine Appearance Sl cloudy Urine pH 6.5 Ur Specific [place] 1.015 Urine Protein Negative Urine Glucose (UA) Negative Urine Ketones Negative Urine Occult Blood Trace-intact Urine Nitrate Positive H Urine Bilirubin Negative Urine Urobilinogen 0.2 Ur Leukocyte Esterase Trace H Urine RBC 0-1/hpf Urine WBC 5-10/hpf H Urine Bacteria Many (>30) H Ur Culture Indicated? Specimen cultured COVID-19 PCR Negative 12/17/19 10:45 WBC RBC Hgb Hct MCV MCH MCHC RDW Plt Count Neut % (Auto) Lymph % (Auto) [place] % (Auto) Eos % (Auto) Baso % (Auto) Neut # (Auto) Lymph # (Auto) [place] # (Auto) Eos # (Auto) Baso # (Auto) Sodium 140 Potassium 4.0 D Chloride 107 Carbon Dioxide 25 BUN 15 Creatinine 0.89 Estimated GFR > 60.0 BUN/Creatinine Ratio 16.9 Glucose 158 H Calcium 9.7 Urine Color Urine Appearance Urine pH Ur Specific [place] Urine Protein Urine Glucose (UA) Urine Ketones Urine Occult Blood Urine Nitrate Urine Bilirubin Urine Urobilinogen Ur Leukocyte Esterase Urine RBC Urine WBC Urine Bacteria Ur Culture Indicated? COVID-19 PCR Assessment & Plan Assessment & Plan narrative: 74-year-old female with left subcapital femoral neck fracture, valgus impacted. Discussed nature of condition, prognosis, treatment options, risks, and benefits. Patient gives informed consent to proceed with percutaneous cannulated screw fixation. COVID-19 COVID-19 status: Result pending
--- NOTE | 2019-12-17 14:17 | OT.IP.TRT ---
Surgery Performed Operation Date: 12/17/19 14:30 Actual Procedures p ORIF Hip/Cannulated Screws(Left) - Bartolo Griffith MD Occupational Therapy Treatment Note M3 OT- IP Subjective and Pain Start: 12/17/19 14:16 Freq: Status: Active Protocol: Document 12/17/19 14:16 CGR (Rec: 12/17/19 14:17 CGR [id number]) OT- Subjective Occupational Therapy Visit Type Type Administrative Note Notes Chart reviewed. Pt planned for sx today. Will hold new eval till after sx.
--- NOTE | 2019-12-17 14:20 | PM.PREOP ---
Pre-operative Note COVID-19 COVID-19 status: Result pending Interval Note History & Physical reviewed/Exam performed by Physician: Yes Changes to H&P: No
[2019-12-17] MEDS: CEFAZOLIN 2 GM/100 ML FROZ.PIGGY IV ×2 (14:49→23:15)
[2019-12-17] MEDS: BUPIVACAINE 0.5% W/ EPI (PF) 10 ML VIAL 30 ML INJ (14:52)
--- NOTE | 2019-12-17 15:36 | P.OP_ITS ---
Operative Date/Time/Diagnoses Date of procedure: 12/17/19 Time of procedure: 15:36 Pre-op diagnosis: Left subcapital femoral neck fracture Post-op diagnosis: same Procedure & Clinicians Procedure: Percutaneous cannulated screw fixation of left subcapital femoral neck fracture (CPT code 44943) Same procedure as scheduled: Yes Indications: 74-year-old female status post fall yesterday significant left hip pain with weight-bearing increased overnight so presented to the emergency room this morning and noted on x-ray to have a valgus impacted left femoral neck fracture. Admitted for treatment and gives informed consent to proceed with cannulated screw fixation. Surgeon: Bartolo Griffith Click Yes if Unassisted: Yes Anesthesia Type: General and Spinal Operative Notes Closure Type: primary Specimen(s): none sent Estimated Blood Loss (mL): 25 Blood products transfused: none Procedure in detail: After administration of anesthesia and IV antibiotics patient placed supine on the fracture table with the right leg in the 90/ 90 well leg gnozales. The left foot was wrapped in cast padding and Cob[place] and then the boot applied. Placed in the traction leg gonzales. No traction was applied the leg was slightly internally rotated and fluoroscopic images obtained showing satisfactory reduction and position of the fracture. Left hip and lower extremity then prepped and draped in the usual sterile fashion. Three pins were then placed percutaneously through the soft tissues to the lateral cortex of the femur up the femoral neck across the fracture and into the femoral head in a triangular pattern with position of the pins confirm satisfactory on C-arm. The pin sites were then incised with a knife and then pins measured for depth. Corresponding screws were then inserted and insertion position and length confirmed fluoroscopically in AP and lateral projections. After satisfactory placement of the 3 screws the guide pins were removed, the wounds were cleansed, and Steri-Strips applied. Soft tissues locally infiltrated with 0.5% Marcaine with epinephrine. Sterile dressings applied the anesthetic terminated and the patient taken to postanesthetic recovery in satisfactory condition. Complications: none Post-operative Condition: stable Disposition: PACU Plan for aftercare: Routine postoperative care with physical therapy, weight- bearing as tolerated. Discharge home when stable, probably postop day 1 or 2. Follow-up in Orthopedic Clinic 10-14 days for wound check and repeat x-rays.
[2019-12-17] MEDS: HYDROCODONE/ACET 5/325 TABLET 1 TAB PO (18:57)
[2019-12-17] MEDS: ACETAMINOPHEN 325 MG TABLET 650 MG PO (20:24)
[2019-12-17] MEDS: DOCUSATE 100 MG CAPSULE PO (20:24)
[2019-12-17] MEDS: ATORVASTATIN 20 MG TABLET PO (20:24)
[2019-12-17] MEDS: SODIUM CHLORIDE 0.9% FLUSH 10 ML IV (20:28)
--- NOTE | 2019-12-17 22:23 | PC.NURSE ---
Blood sugars taken at AC (174) and HS (144).
[2019-12-18 00:15] VITALS: BP 137/67; PULSE 94; RESP 16; TEMP 36.6; O2SAT 94
[2019-12-18] MEDS: diphenhydrAMINE 25 MG TABLET PO (00:44)
[2019-12-18 03:18] VITALS: BP 132/74; PULSE 91; RESP 16; TEMP 36.1; O2SAT 95
[2019-12-18 05:12] LABS: Hematocrit 39.8 % (36-46); Hemoglobin 13.2 g/dL (12.0-16.0)
[2019-12-18] MEDS: CEFAZOLIN 2 GM/100 ML FROZ.PIGGY IV (06:06)
[2019-12-18] MEDS: LEVOTHYROXINE 88 MCG TABLET PO (06:06)
[2019-12-18 08:00] VITALS: BP 151/75; PULSE 88; RESP 16; TEMP 36.8; O2SAT 95
[2019-12-18] MEDS: DOCUSATE 100 MG CAPSULE PO (08:24)
[2019-12-18] MEDS: HYDROCODONE/ACET 5/325 TABLET 1 TAB PO (08:24)
[2019-12-18] MEDS: LORATADINE 10 MG TABLET PO (08:25)
[2019-12-18] MEDS: ASPIRIN EC 81 MG TABLET PO (08:25)
[2019-12-18] MEDS: CHOLECALCIFEROL (VITAMIN D3) 1,000 UNIT TABLET 2000 UNIT PO (08:25)
[2019-12-18] MEDS: MULTIVITAMIN 1 TABLET 1 TAB PO (08:25)
[2019-12-18] MEDS: SODIUM CHLORIDE 0.9% FLUSH 10 ML IV (08:29)
--- NOTE | 2019-12-18 09:00 | PT.IIE ---
Current Diagnoses Age-related osteoporosis with current pathological fracture, left femur, initial encounter for fracture (12/17/19) Surgery Performed Operation Date: 12/17/19 14:30 Actual Procedures p ORIF Hip/Cannulated Screws(Left) - Bartolo Griffith MD Surgical History (Last Reviewed 12/17/19 @ 14:14 by Bartolo Griffith MD) Anesthesia (Resolved) History of cataract removal with insertion of prosthetic lens (Resolved 2004) History of hysteroscopy (Resolved) History of nephrectomy (Resolved 08/11/09) Status post colonoscopy (Resolved) Medical History (Last Reviewed 12/17/19 @ 14:14 by Bartolo Griffith MD) Acquired hypothyroidism (03/29/15) BCC (basal cell carcinoma of skin) (Resolved 1994) Colon polyps (Resolved 1999) Essential hypertension (03/29/15) Hayfever (Chronic 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) History of colonic polyps (01/30/17) Interstitial lung disease (Acute) Kidney tumor (benign) (Resolved 08/11/09) Mixed hyperlipidemia (03/29/15) Stage 3 chronic kidney disease (03/29/15) Type 2 diabetes mellitus without complication (03/29/15) Physical Therapy Inpatient Evaluation/Re-Eval M1 PT/OT-IP Prior Functional Status Start: 12/18/19 11:02 Freq: NEEDED Status: Active Protocol: Document 12/18/19 09:00 AB (Rec: 12/18/19 11:23 AB [id number]) Medical Review Prior Functional Status Medical History Reviewed Yes Communication able to make needs known Mobility and Gait pt stated that she is independent with all mobilities and ambulation without AD Social History Household Members spouse Living Arrangements House Number of Floors (Floors) Two Floors Number of Stairs To Enter/Railing? pt will stay on the main level of the house has no steps to enter from the garage Home Environment High Toilet,Walk in Shower, Built-In Shower Seat Home Equipment Grab Bars In Shower M2 PT-IP Current Condition Start: 12/18/19 11:02 Freq: NEEDED Status: Active Protocol: Document 12/18/19 09:00 AB (Rec: 12/18/19 11:23 AB [id number]) Physical Therapy Current Condition Current Condition Evaluation Date 12/18/19 Treatment Diagnosis s/p L hip cannulated screw fixation; difficulty in walking Onset Date 12/17/19 Weight Bearing Status Weight Bearing Status Weight Bear as Tolerated Allowed Weight Bearing Amount (enter % LLE WBAT or #) (%) M3 PT-IP Subjective Start: 12/18/19 11:02 Freq: NEEDED Status: Active Protocol: Document 12/18/19 09:00 AB (Rec: 12/18/19 11:23 [id number]) Subjective Physical Therapy Visit Type Type Initial Evaluation Visit Start Time 09:00 Visit Stop Time 10:10 Total Visit Minutes 70 Notes initially received hip precautions LLE; clarified order from PAMELA Gottlieb and stated that pt does not have any hip precautions and is WBAT Number of RELIGION DEPARTMENT CHAIR Visits 0 Physical Therapy Visit Comments Patient Comments pt is agreeable to do PT Therapy Pain Assessment Pain When Pain Assessed At Rest Pain Present Pain Present Pain Reported Location Left Hip Intensity 4 Scale Used Numeric (0 - 10) Pain Management Techniques Re-positioning,Timing of Activity with Medications M4 PT-IP Mobility and Gait Start: 12/18/19 11:02 Freq: NEEDED Status: Active Protocol: Document 12/18/19 09:00 AB (Rec: 12/18/19 11:23 [id number]) PT-Bed Mobility Assessment Supine to Sit Supine to Sit Standby Assistance Sit to Supine Sit to Supine Standby Assistance PT-Transfer Assessment Sit to and From Stand Sit to and from Stand Minimal Assistance,1 Person Assistance,Use of Upper Extremities Equipment Transfer Assistive Device Bed Rail,Front Wheeled Walker Orthotic/Prosthetic Devices or Brace: No Transfers Transfer Destination Chair Transfer Technique ambulated using FWW Transfer Ability Level of Assist Minimal Assistance,1 Person Assistance Comments Mobility Comments completed supine to sit SBA. pt was able to sit on EOB SBA. completed sit to stand min A and pt ambulated towards the chair using FWW min A and cues . pt tends to cross LLE in front of RLE. cued pt to correct. pt sat on chair. (+) SOB. O2 sat: 82% VA 112. instructed with deep breathing and O2 sat increased to 89-90 %. informed nurse and no O2 needed at this time. monitored O2 sat and HR for the rest of tx session. pt ambulated again using FWW min A and O2 sat decreased to 85% and HR 147. pt sat back on chair and cued for deep breathing. O2 sat increased to 92% and HR 108. tech intern came in and wanted pt back in bed. pt completed transfer to bed using FWW min A. completed sit to supine SBA. left pt with tech intern. arranged caregiver training with spouse for after session and agreed. Gait Assessment Gait Gait Assistance Required: Minimum Assistance Distance (Feet) 20 Able to Maintain Weight Bearing Status Yes During Gait Assistive Devices Assistive Device Gait Belt,Front Wheeled Walker Orthotic/Prosthetic Devices or Brace: No Gait Deviations General Gait Pattern Antalgic,Decreased Stride Length,Decreased Feet Clearance Factors Limiting Gait Function Factors Limiting Gait Function Decreased Activity Tolerance, Decreased Strength,Limited Range of Motion,Pain,Poor Balance,Poor Safety Awareness, Respiratory Distress Comments Gait Comments pls refer to mobility section for details PT-Balance Assessment Sitting Balance and Reactions Static Sitting Balance Ability Good Dynamic Sitting Balance Ability Good Standing Balance and Reactions Static Standing Balance Ability Fair Dynamic Standing Balance Ability Fair Device Used FWW M5 PT-IP Objective Assessments Start: 12/18/19 11:02 Freq: NEEDED Status: Active Protocol: Document 12/18/19 09:00 (Rec: 12/18/19 11:23 [id number]) Orientation Orientation/Cognition Level of Alertness Alert Orientation Name,Place,Situation Language Function Ability Hard of Hearing Safety Awareness Decreased Safety Awareness Gross Range of Motion Lower Extremity ROM Assessment Within Functional Limits Strength Lower Extremity Strength Assessment Left Impaired Hip 3+/5 Knee 3+/5 Ankle 4-/5 Coordination Assessment Gross Coordination Gross Coordination WNL Sensation Assessment Sensation Gross Sensation WNL Muscle Tone Muscle Tone WNL Yes M6 PT-IP Treatment Start: 12/18/19 11:02 Freq: NEEDED Status: Active Protocol: Document 12/18/19 09:00 (Rec: 12/18/19 11:23 [id number]) Physical Therapy Treatment Education Education Provided Precautions,Weight Bearing Status,Post-Op Packet,Safety M7 PT-IP Assessment and Plan Start: 12/18/19 11:02 Freq: NEEDED Status: Active Protocol: Document 12/18/19 09:00 AB (Rec: 12/18/19 11:23 [id number]) PT Summary Assessment and Plan Potential Rehabilitation Potential Good Status of Condition at Evaluation Stable Summary Impairments Pain,ROM,Strength,Balance,Bed Mobility,Transfers,Gait, Activity Tolerance Assessment Summary pt requiring min A with mobility. caregiver training arranged for today in the afternoon with spouse. pt plans to go home and spouse will be able to assist. pt will need FWW and requested order from PA. will have to f /u on order. pt will also need outpt PT. Goals Bed Mobility Goal Independent Transfer Goal Independent,Front Wheeled Walker Gait Goal Independent,Front Wheel Walker Gait Distance 150 Days to Meet Goals 5 Frequency of Treatment Frequency Of Treatment Twice a Day Treatment Plan Physical Therapy Treatment Plan Bed Mobility Training,Transfer Training,Gait Training, Therapeutic Exercise,Balance Retraining,Post Op Education, Discharge Planning,Hot or Cold Pack,Neuromuscular Re-ed, Coordination Retraining,Manual Therapy Recommendations To Nursing Amount of Assist Needed 1 Person Assist Discharge Recommendations PT Discharge Recommendations Home with Assistance, Outpatient PT Equipment Needed for Home Before FWW Discharge Transportation Needs at Discharge Private Vehicle
--- NOTE | 2019-12-18 09:37 | PM.PNPO.1 ---
Subjective Subjective Date Patient Seen: 12/18/19 Time Patient Seen: 09:37 Interval history: Patient's pain is manageable. Denies fever chills. No nausea vomiting. Exam Vital Signs (past 8 hours): - 12/18/19 03:18 Temperature 96.9 F L Pulse Rate 91 H Respiratory Rate 16 Blood Pressure 132/74 Pulse Oximetry 95 Oxygen Delivery Method Room Air Oxygen Flow Rate 0 Narrative Exam Narrative: 74-year-old female resting comfortably in bed in no apparent distress. Left leg dressing is clean, dry and intact. Sensation is grossly intact distal left lower extremity. Motor functions intact left lower extremity. Left leg is warm and dry. Objective Labs Result Diagrams: 12/18/19 04:54 12/17/19 10:45 Labs: Laboratory Results - last 24 hr 12/17/19 12/17/19 12/17/19 08:50 09:17 10:45 Hgb Hct Sodium 140 Potassium 4.0 D Chloride 107 Carbon Dioxide 25 BUN 15 Creatinine 0.89 Estimated GFR > 60.0 BUN/Creatinine Ratio 16.9 Glucose 158 H Calcium 9.7 Urine Color Yellow Urine Appearance Sl cloudy Urine pH 6.5 Ur Specific [place] 1.015 Urine Protein Negative Urine Glucose (UA) Negative Urine Ketones Negative Urine Occult Blood Trace-intact Urine Nitrate Positive H Urine Bilirubin Negative Urine Urobilinogen 0.2 Ur Leukocyte Esterase Trace H Urine RBC 0-1/hpf Urine WBC 5-10/hpf H Urine Bacteria Many (>30) H Ur Culture Indicated? Specimen cultured COVID-19 PCR Negative 12/18/19 04:54 Hgb 13.2 Hct 39.8 Sodium Potassium Chloride Carbon Dioxide BUN Creatinine Estimated GFR BUN/Creatinine Ratio Glucose Calcium Urine Color Urine Appearance Urine pH Ur Specific [place] Urine Protein Urine Glucose (UA) Urine Ketones Urine Occult Blood Urine Nitrate Urine Bilirubin Urine Urobilinogen Ur Leukocyte Esterase Urine RBC Urine WBC Urine Bacteria Ur Culture Indicated? COVID-19 PCR Assessment & Plan Post-op Postoperative Procedures: Procedures Operation Date: 12/17/19 14:30 Actual Procedures Side Surgeon p ORIF Hip/Cannulated Screws Left Bartolo Griffith MD Patient progressing as expected status post percutaneous cannulated screw fixation of the left subcapital femoral neck fracture December 17, 2019. Work with physical therapy. Patient is weight-bearing as tolerated. Discharge likely tomorrow. Follow up in Orthopedic Clinic 10-14 days for wound check and repeat x-rays.
--- NOTE | 2019-12-18 09:44 | DI.RAD.S_ITS ---
PROCEDURE: XR KNEE LT 3V INDICATIONS: knee pain TECHNIQUE: 2 views of the knee were acquired. COMPARISON: None. FINDINGS: Bones: No fractures or dislocations. No suspicious bony lesions. Mild degenerative changes of the knee are best appreciated within the patellofemoral compartment. There is an enthesophyte at the quadriceps tendon insertion onto the proximal patella. Soft tissues: No joint effusion. No suspicious soft tissue calcifications. IMPRESSION: Mild degenerative changes of the left knee. No fractures. Dictated by: Richie Sheldon M.D. on 12/18/2019 at 9:48 Approved by: Richie Sheldon M.D. on 12/18/2019 at 9:49
--- NOTE | 2019-12-18 11:06 | P.DS_ITS ---
History of Present Illness History of Present Illness Chief complaint: FALL LAST NIGHT Narrative: The patient is a 74-year-old female with a history of hypertension, hypothyroidism, hyperlipidemia, type 2 diabetes, chronic kidney disease, who was walking down the stairs and tripped and fell. Patient states she has been having pain with her left knee. She is not sure whether her knee gave out. In any event she fell suffering a fracture of the left hip. She denies passing out, she reports no lightheadedness, she did not hit her head. She was somewhat ?dazed after the event. The patient does report a history of hypertension but is not currently on treatment. She also states she has no dysuria hematuria or pyuria. She is aware that her urine was cloudy in the emergency department. She has no shortness of breath or chest pain. She denies any palpitations but is aware of an intermittent irregular heartbeat. Patient has no nausea vomiting or diarrhea. She is admitted to the hospital for inpatient treatment of her acute hip fracture. Discharge Providers Provider Date of admission: 12/17/19 11:24 Discharge Date: 12/18/19 Primary care physician: Dorian Villa MD Consults: 12/17/19 16:10 Consult to Discharge Planning Routine Comment: Consult to Respiratory Therapy Evaluate & Treat Comment: Physician Instructions: Evaluate and treat 12/18/19 08:50 Consult to Physical Therapy Evaluate & Treat Comment: weight bearing as tolerated Physician Instructions: Evaluate and Treat Discharge provider: Agnes Hebert MD Summary Hospital Course Discharge Diagnosis: 1. Left hip fracture, likely secondary to underlying osteoporosis 2. Status post percutaneous screw to a left subcapital fracture 3. Osteoporosis 4. Hypertension 5. Hyperlipidemia 6. Hypothyroidism Hospital Course: Patient was admitted to the hospital following a fall. She sustained a left subcapital femoral neck fracture. She was seen preoperatively. Patient was deemed appropriate to proceed to the operating room. Patient underwent a left hip screw fixation of the subcapital fracture. She tolerated the procedure quite well. Following day she was able to ambulate with PT w ithout difficulty. Patient had no significant complaints of pain. No constipation. The patient was noted to be hypertensive throughout her hospital stay. She indicated that she had been managing this at home measuring at accordingly. She will follow-up with Dr. Villa next week. She will discuss management and treatment of her blood pressure at that time. Patient was advised to start the ?-diet. She prefers to initiate treatment as an outpatient after her visit with her primary care provider. Patient had no specific complaints. She was deemed appropriate for discharge. Arrangement for were made for her to be discharged home. The patient complained of some left knee pain. Xrays of the knee revealed DJD of the Left knee and an enestheophyte extending from the Quadraceps into the patella. She will follow up with Dr. Villa next week regarding further recommendations about this. Status at Discharge Cognitive/behavioral status at discharge: oriented Functional status at discharge: uses cane/walker Overall status at discharge: patient is not back to baseline Time Spent with Patient Time spent: Less than 30 minutes Time spent discussing smoking cessation with patient: 3 to 10 minutes Exam Vital Signs (past 8 hours): - 12/18/19 03:18 12/18/19 08:00 Temperature 96.9 F L 98.3 F Pulse Rate 91 H 88 Respiratory Rate 16 16 Blood Pressure 132/74 151/75 H Pulse Oximetry 95 95 Oxygen Delivery Method Room Air Oxygen Flow Rate 0 Narrative Exam Narrative: Pleasant female in No Acute Distress Distress Lungs: Clear to auscultation CV: RRR nl Sl S2 2/6 SHAKA Abd: soft/ non tender/ non distended Ext: left hip with dressing in place, no edema noted Objective Labs Result Diagrams: 12/18/19 04:54 12/17/19 10:45 Labs: Laboratory Results - last 24 hr 12/18/19 04:54 Hgb 13.2 Hct 39.8 Discharge Plan Discharge Plan Patient Disposition: Home Discharge orders & Medications Prescriptions: New hydrocodone-acetaminophen 5-325 mg Tablet 1 tab PO Q4HR PRN (Reason: Pain, Moderate (4-6)) Qty: 15 RF: 0 Continued cetirizine [All Day Allergy (cetirizine)] 10 mg capsule 10 mg PO DAILY Qty: 30 RF: 3 FLAXSEED (FLAXSEED OIL) 1 cap PO Q DAY Qty: 0 RF: 0 ASPIRIN (#ASPI-COR) 81 mg PO Q DAY Qty: 0 RF: 0 CA PANTOTHENATE/FOLIC ACID/VIT (MULTIVITAMIN) 1 tab PO Q DAY Qty: 0 RF: 0 cholecalciferol (vitamin D3) [Vitamin D3] 2,000 UNIT capsule 2,000 unit PO QDAY Qty: 0 RF: 0 atorvastatin [Lipitor] 20 mg tablet 20 mg PO HS Qty: 90 RF: 3 calcium carbonate [Calcium 500] 500 mg calcium (1,250 mg) Tablet 1,000 mg PO DAILY RF: 0 levothyroxine 100 mcg tablet See Rx Instructions .ROUTE .COMPLEX RF: 0 levothyroxine 88 mcg capsule See Rx Instructions .ROUTE .COMPLEX RF: 0 Follow up/Referrals: Dorian Villa MD [Primary Care Provider] - Bartolo Griffith MD [Physician] - Diet/Activity/Treatments Diet: Low-fat and Low-sodium Activity: as tolerated Discharge Data Primary Care Provider: Dorian Villa V
--- NOTE | 2019-12-18 11:13 | CM.DANOTE ---
Patient is a 74 year old female who was admitted on 12/17/19 for Fall/Hip fx. Pt has [facility] for insurance and her PCP is Dr. Villa. EMR was reviewed. Per , pt with left hip fx and to have Ortho consult. Per Ortho MD, pt agreeable with surgery for hip screw fixation yesterday and pt tolerated procedure well. SW met bedside with pt and spouse and explained role and pt confirms she lives at home in [place] with her and is independent with ADL's at baseline and quite active but her knee has been acting up which she just had an xray bedside today while admitted. Pt states she drives and spouse is DPOA but now that she will be limited her spouse can drive and assist. Denies hx of HH or SNF. Pt states she felt so much better getting up with PT than anticipated and her preference is home with spouse assist when stable. Per PT, recommending home with spouse assist and outpt PT and FWW. Per MD, discussed pt with Ortho and pt now medically stable to d/c home today. Plan: Patient to d/c home via spouse POV and FWW and will plan to set up outpt PT after discharge. No further SW needs at this time. TOBIN Rogel Discharge Planning/Care Management CM Discharge Assessment Start: 12/18/19 11:11 Freq: Status: Active Protocol: Document 12/18/19 11:11 (Rec: 12/18/19 11:13 [id number]) Discharge Planning Assessment Assigned Tool Polisher TOBIN Arguelles DPOA/Assigned Designee Name spouse Eyad Contact Information [phone] Advance Directives? Yes History Provided By Patient,Significant Other, Medical Record Has Patient been admitted in last 30 No days? Prior Living Arrangements House Household Members spouse Type of transporation used prior to Drives own vehicle admit Independent with ADL's Yes Is patient alert and oriented? Yes Caregiver for Another No Patient/Family Preference Home with Home Health,OP PT Therapy Comment R/O outpt PT vs HH pending initial PT eval and recommendations Barriers to Discharge No Discharge Plan Home Community Services Physical Therapy Transportation Arrangement Spouse bedside and can provide transport at d/c. Additional Comment Pending PT/OT eval and recommendations Whiteboard Updated in Patient Room with Yes name and ext. # of Tool Polisher Review Status In Process Please Provide Date Initial DC 12/18/19 Assessment Was Performed Next Review Type Continued Stay Review
--- NOTE | 2019-12-18 13:57 | PT.IPTN ---
Current Diagnoses Age-related osteoporosis with current pathological fracture, left femur, initial encounter for fracture (12/17/19) Surgery Performed Operation Date: 12/17/19 14:30 Actual Procedures p ORIF Hip/Cannulated Screws(Left) - Bartolo Griffith MD Physical Therapy Treatment Note M2 PT-IP Current Condition Start: 12/18/19 11:02 Freq: NEEDED Status: Active Protocol: Document 12/18/19 09:00 AB (Rec: 12/18/19 11:23 AB [id number]) Physical Therapy Current Condition Current Condition Evaluation Date 12/18/19 Treatment Diagnosis s/p L hip cannulated screw fixation; difficulty in walking Onset Date 12/17/19 Weight Bearing Status Weight Bearing Status Weight Bear as Tolerated Allowed Weight Bearing Amount (enter % LLE WBAT or #) (%) M3 PT-IP Subjective Start: 12/18/19 11:02 Freq: NEEDED Status: Active Protocol: Document 12/18/19 13:57 AB (Rec: 12/18/19 14:47 AB [id number]) Subjective Physical Therapy Visit Type Type Treatment Note Visit Start Time 13:57 Visit Stop Time 14:37 Total Visit Minutes 40 Number of ASSEMBLY MACHINE SET UP MECHANIC Visits 0 Physical Therapy Visit Comments Patient Comments spouse in room for caregiver training Therapy Pain Assessment Pain When Pain Assessed During Mobility Location Left Hip Scale Used pain scale not stated; stated tolerable pain Pain Management Techniques Re-positioning,Timing of Activity with Medications M4 PT-IP Mobility and Gait Start: 12/18/19 11:02 Freq: NEEDED Status: Active Protocol: Document 12/18/19 13:57 AB (Rec: 12/18/19 14:47 AB [id number]) PT-Bed Mobility Assessment Supine to Sit Supine to Sit Standby Assistance Sit to Supine Sit to Supine Standby Assistance PT-Transfer Assessment Sit to and From Stand Sit to and from Stand Contact Guard Assistance,1 Person Assistance Equipment Transfer Assistive Device Gait Belt,Front Wheeled Walker Orthotic/Prosthetic Devices or Brace: No Comments Mobility Comments pt in bed. completed supine to sit SBA. educated spouse on how to use safety belt and how to assist pt. completed sit <>stand with spouse assisting and ambulated in room using FWW with spouse assisting. pt sat back on EOB . pt and spouse with no further concerns. pt want to get a shower prior to d/c. informed nurse and NAC. informed pt regarding scheduling for outpt PT and pt agreed. Gait Assessment Gait Gait Assistance Required: Contact Guard Assist Distance (Feet) 50 Able to Maintain Weight Bearing Status Yes During Gait Assistive Devices Assistive Device Gait Belt,Front Wheeled Walker Orthotic/Prosthetic Devices or Brace: No Gait Deviations General Gait Pattern Antalgic,Decreased Stride Length,Decreased Feet Clearance Factors Limiting Gait Function Factors Limiting Gait Function Decreased Activity Tolerance, Decreased Strength,Pain,Poor Balance M5 PT-IP Objective Assessments Start: 12/18/19 11:02 Freq: NEEDED Status: Active Protocol: Document 12/18/19 09:00 AB (Rec: 12/18/19 11:23 AB [id number]) Orientation Orientation/Cognition Level of Alertness Alert Orientation Name,Place,Situation Language Function Ability Hard of Hearing Safety Awareness Decreased Safety Awareness Gross Range of Motion Lower Extremity ROM Assessment Within Functional Limits Strength Lower Extremity Strength Assessment Left Impaired Hip 3+/5 Knee 3+/5 Ankle 4-/5 Coordination Assessment Gross Coordination Gross Coordination WNL Sensation Assessment Sensation Gross Sensation WNL Muscle Tone Muscle Tone WNL Yes M6 PT-IP Treatment Start: 12/18/19 11:02 Freq: NEEDED Status: Active Protocol: Document 12/18/19 13:57 AB (Rec: 12/18/19 14:47 AB [id number]) Physical Therapy Treatment Other Treatments Other Treatment Performed reviewed HEP with pt M7 PT-IP Assessment and Plan Start: 12/18/19 11:02 Freq: NEEDED Status: Active Protocol: Document 12/18/19 13:57 AB (Rec: 12/18/19 14:47 AB [id number]) PT Summary Assessment and Plan Potential Rehabilitation Potential Good Summary Impairments Pain,ROM,Strength,Balance, Coordination,Sensation,Tone, Cognition,Bed Mobility, Transfers,Gait,Activity Tolerance Progress Towards Goals Progressing Toward Goals Assessment Summary caregiver training conducted and spouse was able to assist pt safely. pt plans to go home today and may go home when medically stable. Goals Bed Mobility Goal Independent Transfer Goal Independent,Front Wheeled Walker Gait Goal Independent,Front Wheel Walker Gait Distance 150 Days to Meet Goals 5 Frequency of Treatment Frequency Of Treatment Twice a Day Treatment Plan Physical Therapy Treatment Plan Bed Mobility Training,Transfer Training,Gait Training, Therapeutic Exercise,Balance Retraining,Post Op Education, Discharge Planning,Hot or Cold Pack,Neuromuscular Re-ed, Coordination Retraining,Manual Therapy Recommendations To Nursing Amount of Assist Needed 1 Person Assist Discharge Recommendations PT Discharge Recommendations Home with Assistance, Outpatient PT Equipment Needed for Home Before FWW Discharge Transportation Needs at Discharge Private Vehicle
[2019-12-18] MEDS: ACETAMINOPHEN 325 MG TABLET 650 MG PO (14:46)
--- NOTE | 2019-12-18 15:15 | PC.NURSE ---
Day shift: Paperwork singed and all questions answered. Dressing is CDI. CMS intact. Pt has scrips and all personal belongings. Taken in WC to car driven by spouse by GAGANDEEP Field.
== END 2019-12-18 15:16 | disposition home or self-care (01) | DRG 481 ==
LOC: ED 09:53 → AC 11:25
PROVIDERS: Admitting Provider Internal Medicine; Emergency Provider Emergency Medicine; PCP Internal Medicine; Referring Provider Emergency Medicine; Visit Provider Orthopaedic Surgery
PROC: 0QS734Z Reposition Left Upper Femur with Internal Fixation Device, Percutaneous Approach (ICD-10-PCS; principal; 2019-12-17 14:30)
DX: M80.052A Age-related osteoporosis with current pathological fracture, left femur, initial encounter for fracture (principal); J84.9 Interstitial pulmonary disease, unspecified; I10 Essential (primary) hypertension; E03.9 Hypothyroidism, unspecified; E78.2 Mixed hyperlipidemia; M25.562 Pain in left knee; Z11.59 Encounter for screening for other viral diseases; W10.9XXA Fall (on) (from) unspecified stairs and steps, initial encounter
CPT/HCPCS: 36415; 51701; 73502; 73562; 76000; 80048; 80061; 81001; 84436; 84439; 84443; 84450; 85014; 85018; 85025; 87077; 87086; 87186; 87635; 93005; 93010; 96361; 96365; 96375; 97161; 97530; 99284; 99285; J0690; J2405; J2704; J3010; J3360

== ENCOUNTER → 2019-12-24 16:28 | Outpatient (CLI) | payer MEDICARE, SELFPAY ==
[2019-12-17 12:45] VITALS: BMI 30.7
[2019-12-24 17:28] LABS: Appearance Urine UA CLEAR; Bilirubin Urine UA NEGATIVE (NEGATIVE); Color Urine UA YELLOW; Glucose Urine UA NEGATIVE (Negative); Ketones Urine UA NEGATIVE (NEGATIVE); Leukocyte Esterase Urine UA TRACE (NEGATIVE); Nitrite Urine UA NEGATIVE (Negative); Occult Blood Urine UA NEGATIVE (Negative); Protein Urine UA NEGATIVE (Negative); Specific Gravity Urine UA 1.015 (1.000-1.035); Urobilinogen Urine UA 0.2 E.U./dL (0.2)
[2019-12-24 17:36] LABS: Bacteria Urine Many (>30); Culture Indicated Urine Specimen Cultured; RBC Urine 0-1/HPF (0-5/HPF); Squamous Epithelial Cell Urine 0-1 /HPF (0-5/HPF); WBC Urine 5-10/HPF (0-5/HPF)
== END ==
PROVIDERS: PCP Internal Medicine; Referring Provider Internal Medicine; Visit Provider Internal Medicine
DX: R30.0 Dysuria (principal)
CPT/HCPCS: 81001; 87077; 87086; 87186

== ENCOUNTER → 2019-12-27 14:58 | Outpatient (CLI) | payer MEDICARE, SELFPAY ==
[2019-12-17 12:45] VITALS: BMI 30.7
== END ==
PROVIDERS: PCP Internal Medicine; Referring Provider Internal Medicine; Visit Provider Internal Medicine
DX: M85.851 Other specified disorders of bone density and structure, right thigh (principal); Z78.0 Asymptomatic menopausal state; E07.9 Disorder of thyroid, unspecified; S72.002D Fracture of unspecified part of neck of left femur, subsequent encounter for closed fracture with routine healing
CPT/HCPCS: 77080

== ENCOUNTER 2020-02-15 09:45 | Outpatient (RCR) | payer MEDICARE, SELFPAY ==
[2019-12-17 12:45] VITALS: BMI 30.7
--- NOTE | 2020-01-10 14:54 | PT.OIE ---
Current Diagnoses Fracture of unspecified part of neck of left femur, subsequent encounter for closed fracture with routine healing (01/10/20) Strain of unspecified muscle(s) and tendon(s) at lower leg level, left leg, subsequent encounter (01/10/20) Past Medical History (Last Reviewed 12/17/19 @ 14:14 by Bartolo Griffith MD) Acquired hypothyroidism (03/29/15) BCC (basal cell carcinoma of skin) (Resolved 1994) Colon polyps (Resolved 1999) Essential hypertension (03/29/15) Hayfever (Chronic 1969) History of colonic polyps (01/30/17) Interstitial lung disease (Acute) Kidney tumor (benign) (Resolved 08/11/09) Mixed hyperlipidemia (03/29/15) Stage 3 chronic kidney disease (03/29/15) Type 2 diabetes mellitus without complication (03/29/15) Past Surgical History (Last Reviewed 12/17/19 @ 14:14 by Bartolo Griffith MD) Anesthesia (Resolved) History of cataract removal with insertion of prosthetic lens (Resolved 2004) History of hysteroscopy (Resolved) History of nephrectomy (Resolved 08/11/09) Status post colonoscopy (Resolved) Visit Care Team Role Provider Type Dorian Villa MD Attending Provider Physician Primary Care Provider Referring Provider Specialty: Internal Medicine Address: [address] [place] [address], [facility] Email: [email or web address] Physical Therapy Initial Evaluation PT-OP-A Visit Information Start: 01/10/20 13:46 Freq: Status: Active Protocol: Document 01/10/20 14:30 HH (Rec: 01/10/20 14:54 HH [email or web address]) Out-Patient Physical Therapy Visit Information Visit Information Visit Type Initial Evaluation Visit Start Time 13:46 Visit Stop Time 14:30 Total Visit Minutes 44 Visit Number 1 Number of MANAGER ACCOUNT MANAGEMENT Visits 0 Evaluation Information Evaluation Date 01/10/20 PT-OP-B Current Condition Start: 01/10/20 13:46 Freq: Status: Active Protocol: Document 01/10/20 14:30 HH (Rec: 01/10/20 14:54 HH [email or web address]) Current Condition History of Current Condition Onset Date 12/17/19 Current Complaints s/p screw fixation of left femoral neck fx after a GLF History of Current Condition Pt is a 74-year-old female status post fall at home onto her left hip from stairs on 03/28. She went to the emergency room due to increasing pain with weight- bearing. and x-rays demonstrated a valgus impacted femoral neck fracture on the left. Pt had percutaneous cannulated screw fixation on the same day and she was hospitalized for a day then d/ c to home with assistance. Pt has been doing well since and she amb with a FWW. Pt does not have much c/o currently and only 2/10 pain to amb. She has not been using stairs at home but would like to get back to it since there 's new installed hand rails. Pt has been doing ankle pumps, quad set, glute set, heel slide and leg abd for HEP. Pt will have a follow up with Dr. Griffith on 01/27. Pt is very active for PLOF who walks 1/2 mile a day, go to the pool 5 times/ week and aerobic class 3 times /week at home. Treatment Goals Patient/Caregiver Goals To improve her balance and L strength to be able to walk without walker again to be able to climb stair without assistance again. PT-OP-C Subjective Start: 01/10/20 13:46 Freq: Status: Active Protocol: Document 01/10/20 14:30 HH (Rec: 01/10/20 14:54 HH [email or web address]) OP-PT Subjective Patient Comments Patient Comments Im doing better since the surgery but im still using the walker: Patient Reported Progress Improving Patient Questionnaires Lower Extremity Functional Scale LEFS Score 43 LEFS Impairment 40 to 59% Impaired (Score 32- 47) OP-PT Pain Assessment Location Left Hip Pain Location Details L greater trochanter region Intensity 2 Scale Used Numeric (0 - 10) Description Aching,Pressure Frequency Frequent Pain Aggravating Factors Exercise,Walking,Stair Climbing Pain Alleviating Factors Inactivity,Lying Supine PT-OP-G Mobility & Gait Start: 01/10/20 13:46 Freq: Status: Active Protocol: Document 01/10/20 14:30 HH (Rec: 01/10/20 14:54 HH [email or web address]) OP Gait Assessment Gait Gait Assistance Required: Independent Assistive Devices Assistive Device Front Wheeled Walker Orthotic/Prosthetic Devices or Brace: No Gait Deviations General Gait Pattern Antalgic,Decreased Stride Length,Decreased Feet Clearance Factors Limiting Gait Function Factors Limiting Gait Function Decreased Activity Tolerance, Decreased Sensation,Decreased Strength,Limited Range of Motion,Pain,Poor Balance Comments Gait Comments antalgic and trendelenburg gait noted on L side. decreased WB and push off on L side. Stair Climbing Evaluation Evaluation Level of Assist On Stairs Standby Assistance Devices Stair Climbing Assistive Devices Left Railing,Right Railing Technique/Endurance Stair Climbing Direction Ascend and Descend Stair Climbing Technique Step Over Step Number of Steps Climbed 4 Stair Climbing Set # Repetitions (reps) 2 Comments Stair Climbing Comments increased use of UE assistance on railings with WB on LLE. PT-OP-K Range of Motion Start: 01/10/20 13:46 Freq: Status: Active Protocol: Document 01/10/20 14:30 HH (Rec: 01/10/20 14:54 HH [email or web address]) Hip Goniometric Range of Motion Hip Right Active Hip ROM WFL Yes Straight Leg Raise 92 Extension 12 Abduction 26 Left Active Hip ROM WFL Yes Testing Position Supine Straight Leg Raise 90 Extension 10 Abduction 22 PT-OP-M Strength Start: 01/10/20 13:46 Freq: Status: Active Protocol: Document 01/10/20 14:30 HH (Rec: 01/10/20 14:54 [email or web address]) Hip Strength Hip Manual Muscle Testing Right Flexion (L2) 4+ Good+ Extension (S1) 4+ Good+ Abduction 4+ Good+ Adduction 4+ Good+ Left Flexion (L2) 4- Good- Extension (S1) 4- Good- Abduction 3 Fair Adduction 4- Good- Knee Strength Knee Manual Muscle Testing Right Flexion (S2) 4+ Good+ Extension (L3) 4+ Good+ Left Flexion (S2) 4- Good- Extension (L3) 4- Good- Ankle/Foot Strength Ankle and Foot Manual Muscle Testing Right Dorsiflexion (L4) 4+ Good+ Plantarflexion (S1) 4+ Good+ Inversion 4+ Good+ Eversion (S1) 4+ Good+ Left Dorsiflexion (L4) 4+ Good+ Plantarflexion (S1) 4+ Good+ Inversion 4+ Good+ Eversion (S1) 4+ Good+ PT-OP-Q Treatments Start: 01/10/20 13:46 Freq: Status: Active Protocol: Document 01/10/20 14:30 HH (Rec: 01/10/20 14:54 HH [email or web address]) Therapeutic Exercises Standing Exercises marching in place Standing Exercise Name with FWW Side bilateral Reps/Minutes 8 x2 Comments for HEP, pt unable to perform without UE support hip extension Standing Exercise Name with FWW Side right Reps/Minutes 8x2 Comments for HEP, cues to prevent trunk movement hip abduction Standing Exercise Name with FWW Side right Reps/Minutes 8 x2 Comments for HEP, cues to prevent trunk movement Gait Training Gait Activity SPC Device Used SPC Level of Assistance CGA Surface ground level Distance/Duration 180 ft Treatment Focus gait training Comments use of SPC on R side. Pt was able to generate reciprocal gait pattern with decreased antalgic gait without cues. recommended pt to acquire SPC for gait training at home. PT-OP-T Assessment and Plan Start: 01/10/20 13:46 Freq: Status: Active Protocol: Document 01/10/20 14:30 HH (Rec: 01/10/20 14:54 [email or web address]) Physical Therapy Assessment Rehab Potential Rehabilitation Potential Excellent Evaluation Complexity Number of Personal Factors/Comorbidities 1-2 Number of Body Systems Impaired 1-2 Clinical Presentation at Evaluation Stable Impairments Impairments Activity Tolerance,Balance, Functional Activities, Functional Mobility,Gait,Pain, Posture,ROM,Soft Tissue Mobility,Strength Goals walking Impairment pt is using FWW for mobility now Penitentiary Goal (LTG) pt will be able to mobilize without any AD and antalgic sign during ambulation LTG Duration 8 weeks hip strength Impairment hip abd strength = 3/5 Penitentiary Goal (LTG) Pt will regain her L hip abduction strength to 4+/5 to improve hip stability for walking LTG Duration 8 weeks stair climbing Impairment pt was unable to climb stair without supervision and rails Convention Worker Goal (LTG) Pt will be able to climb home stairs without supervision and only use 1 rail for reciprocal pattern. LTG Duration 8 weeks LEFS Impairment pt scores 43 on LEFS Short Term Goal (STG) pt will score 48 or greater on LEFS to improve quality of life STG Duration 4 weeks Convention Worker Goal (LTG) pt will score 63 or greater on LEFS to improve quality of life LTG Duration 8 weeks Assessment Summary Assessment This is a low complexity evaluation for this 74 yo female here for rehab s/p screw fixation of left femoral neck fx after a GLF on 12/16. Pt has been recovering very well who has WFL ROM. Pt currently uses FWW for mobility but she was able to amb safely with SPC during assessment. Pt's L hip strength is limited at this point especially hip abd 3/5. Provided HEP with standing hip extension, abduction and marching in place to promote L hip stability. Also educated pt to acquire SPC for home gait training. Pt will benefit from skilled therapy to improve her hip strength, gait quality in order for her to return to her prior high level of function. Physical Therapy Plan Frequency and Duration Frequency of Treatment 1x/Week Duration of Treatment 8 weeks Plan of Care Start Date 01/10/20 Plan of Care End Date 03/10/20 Therapeutic Interventions Therapeutic Interventions Balance Training,Gait Training ,Home Exercise Program,Joint Mobilizations,Manual Therapy, Neuromuscular Re-education, Patient/Caregiver Education, Self-Care/Home Management,Soft Tissue Mobilization,Taping, Therapeutic Activities, Therapeutic Exercises Modalities Cold Pack/Ice Massage,Electric Stimulation,Hot Packs, Infrared Therapy Next Visit Focus/Plan Next Note Type Treatment Note Next Visit Plan review HEP gait training with/without AD L hip strengthening stepper/ bike leg press SL stance
--- NOTE | 2020-01-10 14:54 | PT.OPPOC ---
Physical, Occupational & Speech Therapy At [facility] Current Diagnoses Fracture of unspecified part of neck of left femur, subsequent encounter for closed fracture with routine healing (01/10/20) Strain of unspecified muscle(s) and tendon(s) at lower leg level, left leg, subsequent encounter (01/10/20) Visit Care Team Role Provider Type Dorian Villa MD Attending Provider Physician Primary Care Provider Referring Provider Specialty: Internal Medicine Address: [address] [place] [address], [facility] Email: [email or web address] Plan Of Care PT-OP-T Assessment and Plan Start: 01/10/20 13:46 Freq: Status: Active Protocol: Document 01/10/20 14:30 HH (Rec: 01/10/20 14:54 HH [email or web address]) Physical Therapy Assessment Rehab Potential Rehabilitation Potential Excellent Evaluation Complexity Number of Personal Factors/Comorbidities 1-2 Number of Body Systems Impaired 1-2 Clinical Presentation at Evaluation Stable Impairments Impairments Activity Tolerance,Balance, Functional Activities, Functional Mobility,Gait,Pain, Posture,ROM,Soft Tissue Mobility,Strength Goals walking Impairment pt is using FWW for mobility now Intermediate Goal (LTG) pt will be able to mobilize without any AD and antalgic sign during ambulation LTG Duration 8 weeks hip strength Impairment hip abd strength = 3/5 Regional Account Executive Goal (LTG) Pt will regain her L hip abduction strength to 4+/5 to improve hip stability for walking LTG Duration 8 weeks stair climbing Impairment pt was unable to climb stair without supervision and rails Intermediate Goal (LTG) Pt will be able to climb home stairs without supervision and only use 1 rail for reciprocal pattern. LTG Duration 8 weeks LEFS Impairment pt scores 43 on LEFS Short Term Goal (STG) pt will score 48 or greater on LEFS to improve quality of life STG Duration 4 weeks Regional Account Executive Goal (LTG) pt will score 63 or greater on LEFS to improve quality of life LTG Duration 8 weeks Assessment Summary Assessment This is a low complexity evaluation for this 74 yo female here for rehab s/p screw fixation of left femoral neck fx after a GLF on 12/16. Pt has been recovering very well who has WFL ROM. Pt currently uses FWW for mobility but she was able to amb safely with SPC during assessment. Pt's L hip strength is limited at this point especially hip abd 3/5. Provided HEP with standing hip extension, abduction and marching in place to promote L hip stability. Also educated pt to acquire SPC for home gait training. Pt will benefit from skilled therapy to improve her hip strength, gait quality in order for her to return to her prior high level of function. Physical Therapy Plan Frequency and Duration Frequency of Treatment 1x/Week Duration of Treatment 8 weeks Plan of Care Start Date 01/10/20 Plan of Care End Date 03/10/20 Therapeutic Interventions Therapeutic Interventions Balance Training,Gait Training ,Home Exercise Program,Joint Mobilizations,Manual Therapy, Neuromuscular Re-education, Patient/Caregiver Education, Self-Care/Home Management,Soft Tissue Mobilization,Taping, Therapeutic Activities, Therapeutic Exercises Modalities Cold Pack/Ice Massage,Electric Stimulation,Hot Packs, Infrared Therapy Next Visit Focus/Plan Next Note Type Treatment Note Next Visit Plan review HEP gait training with/without AD L hip strengthening stepper/ bike leg press SL stance Plan of Care Dates Plan of Care Start Date 01/10/20 Plan of Care End Date 03/10/20 Electronically Signed by: Donna Arias, PT 01/10/20 [id number] Please Sign and Return: I have reviewed this Plan of Care and certify that the skilled therapy services above are required to meet the patient?s needs. Physician Signature Date Printed Name and Credentials Clinical Instructor Signature Printed Name and Credentials
--- NOTE | 2020-01-17 16:21 | PT.OTN ---
Current Diagnoses Fracture of unspecified part of neck of left femur, subsequent encounter for closed fracture with routine healing (01/17/20) Strain of unspecified muscle(s) and tendon(s) at lower leg level, left leg, subsequent encounter (01/17/20) Physical Therapy Treatment Note PT-OP-A Visit Information Start: 01/10/20 13:46 Freq: Status: Active Protocol: Document 01/17/20 15:26 HH (Rec: 01/17/20 16:20 HH [id number]) Out-Patient Physical Therapy Visit Information Visit Information Visit Type Treatment Note Visit Start Time 15:19 Visit Stop Time 16:00 Total Visit Minutes 41 Visit Number 2 Number of CONTINUITY WRITER Visits 0 PT-OP-B Current Condition Start: 01/10/20 13:46 Freq: Status: Active Protocol: Document 01/10/20 14:30 HH (Rec: 01/10/20 14:54 HH [email or web address]) Current Condition History of Current Condition Onset Date 12/17/19 Current Complaints s/p screw fixation of left femoral neck fx after a GLF History of Current Condition Pt is a 74-year-old female status post fall at home onto her left hip from stairs on 03/28. She went to the emergency room due to increasing pain with weight- bearing. and x-rays demonstrated a valgus impacted femoral neck fracture on the left. Pt had percutaneous cannulated screw fixation on the same day and she was hospitalized for a day then d/ c to home with assistance. Pt has been doing well since and she amb with a FWW. Pt does not have much c/o currently and only 2/10 pain to amb. She has not been using stairs at home but would like to get back to it since there 's new installed hand rails. Pt has been doing ankle pumps, quad set, glute set, heel slide and leg abd for HEP. Pt will have a follow up with Dr. Griffith on 01/27. Pt is very active for PLOF who walks 1/2 mile a day, go to the pool 5 times/ week and aerobic class 3 times /week at home. Treatment Goals Patient/Caregiver Goals To improve her balance and L strength to be able to walk without walker again to be able to climb stair without assistance again. PT-OP-C Subjective Start: 08/03/20 13:46 Freq: Status: Active Protocol: Document 01/17/20 15:26 HH (Rec: 01/17/20 16:20 [id number]) OP-PT Subjective Patient Comments Patient Comments Beverly been using SPC since last week but my first step tends to be hard and weak and it feels fine after. Beverly been doing all my ex without discomfort. And beverly been doing stairs Patient Reported Progress Improving PT-OP-G Mobility & Gait Start: 01/10/20 13:46 Freq: Status: Active Protocol: Document 01/10/20 14:30 HH (Rec: 01/10/20 14:54 [email or web address]) OP Gait Assessment Gait Gait Assistance Required: Independent Assistive Devices Assistive Device Front Wheeled Walker Orthotic/Prosthetic Devices or Brace: No Gait Deviations General Gait Pattern Antalgic,Decreased Stride Length,Decreased Feet Clearance Factors Limiting Gait Function Factors Limiting Gait Function Decreased Activity Tolerance, Decreased Sensation,Decreased Strength,Limited Range of Motion,Pain,Poor Balance Comments Gait Comments antalgic and trendelenburg gait noted on L side. decreased WB and push off on L side. Stair Climbing Evaluation Evaluation Level of Assist On Stairs Standby Assistance Devices Stair Climbing Assistive Devices Left Railing,Right Railing Technique/Endurance Stair Climbing Direction Ascend and Descend Stair Climbing Technique Step Over Step Number of Steps Climbed 4 Stair Climbing Set # Repetitions (reps) 2 Comments Stair Climbing Comments increased use of UE assistance on railings with WB on LLE. PT-OP-K Range of Motion Start: 01/10/20 13:46 Freq: Status: Active Protocol: Document 01/10/20 14:30 HH (Rec: 01/10/20 14:54 [email or web address]) Hip Goniometric Range of Motion Hip Right Active Hip ROM WFL Yes Straight Leg Raise 92 Extension 12 Abduction 26 Left Active Hip ROM WFL Yes Testing Position Supine Straight Leg Raise 90 Extension 10 Abduction 22 PT-OP-M Strength Start: 01/10/20 13:46 Freq: Status: Active Protocol: Document 01/10/20 14:30 HH (Rec: 01/10/20 14:54 [email or web address]) Hip Strength Hip Manual Muscle Testing Right Flexion (L2) 4+ Good+ Extension (S1) 4+ Good+ Abduction 4+ Good+ Adduction 4+ Good+ Left Flexion (L2) 4- Good- Extension (S1) 4- Good- Abduction 3 Fair Adduction 4- Good- Knee Strength Knee Manual Muscle Testing Right Flexion (S2) 4+ Good+ Extension (L3) 4+ Good+ Left Flexion (S2) 4- Good- Extension (L3) 4- Good- Ankle/Foot Strength Ankle and Foot Manual Muscle Testing Right Dorsiflexion (L4) 4+ Good+ Plantarflexion (S1) 4+ Good+ Inversion 4+ Good+ Eversion (S1) 4+ Good+ Left Dorsiflexion (L4) 4+ Good+ Plantarflexion (S1) 4+ Good+ Inversion 4+ Good+ Eversion (S1) 4+ Good+ PT-OP-Q Treatments Start: 01/10/20 13:46 Freq: Status: Active Protocol: Document 01/17/20 15:26 (Rec: 01/17/20 16:20 [id number]) Cardio Equipment Recumbent Stepper (Sci-Fit) Duration (Minutes) 5 Resistance 5 Other RPM 40 Gym Equipment Shuttle Rebound squat Exercise Details Bilateral and unilateral Reps/Duration 8-10 reps x 2 sets Comments 50# bilateral to warm up 37# on L 75# on R w/ yellow band on knees to facilitate hip ER. Therapeutic Exercises Supine Exercises bridging Supine Exercise Name w slight hip ER Side bilateral Equipment Used yellow band Reps/Minutes 10 x2 Comments w/ yellow band on knees to facilitate hip ER. Sidelying Exercises clamshell Side left Reps/Minutes 8 x2 Comments cues on preventing lumbar rotation Gait Training Gait Activity gait training Description next to //bar Device Used none Level of Assistance SBA Surface ground level Treatment Focus gait training Comments started with 2 UE support and cues on preventing R hip drop then progressed to 1 UE support then none. Pt dieter very well witohut discomfort. PT-OP-T Assessment and Plan Start: 01/10/20 13:46 Freq: Status: Active Protocol: Document 01/17/20 15:26 HH (Rec: 01/17/20 16:20 [id number]) Physical Therapy Assessment Goals walking Impairment pt is using FWW for mobility now Custodial Goal (LTG) pt will be able to mobilize without any AD and antalgic sign during ambulation LTG Duration 8 weeks hip strength Impairment hip abd strength = 3/5 Custodial Goal (LTG) Pt will regain her L hip abduction strength to 4+/5 to improve hip stability for walking LTG Duration 8 weeks stair climbing Impairment pt was unable to climb stair without supervision and rails Assistant Cross Country Coach Goal (LTG) Pt will be able to climb home stairs without supervision and only use 1 rail for reciprocal pattern. LTG Duration 8 weeks LEFS Impairment pt scores 43 on LEFS Short Term Goal (STG) pt will score 48 or greater on LEFS to improve quality of life STG Duration 4 weeks Custodial Goal (LTG) pt will score 63 or greater on LEFS to improve quality of life LTG Duration 8 weeks Assessment Summary Assessment Pt is doing well with SPC but noticed pt LLE buckled for the first step. However, her hip stability immediately improved after glute strengthening ex and so does her discomfort. Will cont work on L hip strength and stability followed by gait training. Physical Therapy Plan Next Visit Focus/Plan Next Note Type Treatment Note Next Visit Plan review HEP gait training with/without AD L hip strengthening stepper/ bike leg press SL stance
--- NOTE | 2020-01-24 11:19 | PT.OTN ---
Current Diagnoses Fracture of unspecified part of neck of left femur, subsequent encounter for closed fracture with routine healing (01/24/20) Strain of unspecified muscle(s) and tendon(s) at lower leg level, left leg, subsequent encounter (01/24/20) Physical Therapy Treatment Note PT-OP-A Visit Information Start: 01/10/20 13:46 Freq: Status: Active Protocol: Document 01/24/20 10:33 HH (Rec: 01/24/20 11:19 HH [id number]) Out-Patient Physical Therapy Visit Information Visit Information Visit Type Treatment Note Visit Start Time 10:34 Visit Stop Time 11:15 Total Visit Minutes 41 Visit Number 3 Number of POND WORKER Visits 0 PT-OP-B Current Condition Start: 01/10/20 13:46 Freq: Status: Active Protocol: Document 01/10/20 14:30 HH (Rec: 01/10/20 14:54 HH [email or web address]) Current Condition History of Current Condition Onset Date 12/17/19 Current Complaints s/p screw fixation of left femoral neck fx after a GLF History of Current Condition Pt is a 74-year-old female status post fall at home onto her left hip from stairs on 03/28. She went to the emergency room due to increasing pain with weight- bearing. and x-rays demonstrated a valgus impacted femoral neck fracture on the left. Pt had percutaneous cannulated screw fixation on the same day and she was hospitalized for a day then d/ c to home with assistance. Pt has been doing well since and she amb with a FWW. Pt does not have much c/o currently and only 2/10 pain to amb. She has not been using stairs at home but would like to get back to it since there 's new installed hand rails. Pt has been doing ankle pumps, quad set, glute set, heel slide and leg abd for HEP. Pt will have a follow up with Dr. Griffith on 01/27. Pt is very active for PLOF who walks 1/2 mile a day, go to the pool 5 times/ week and aerobic class 3 times /week at home. Treatment Goals Patient/Caregiver Goals To improve her balance and L strength to be able to walk without walker again to be able to climb stair without assistance again. PT-OP-C Subjective Start: 08/03/20 13:46 Freq: Status: Active Protocol: Document 01/24/20 10:33 HH (Rec: 01/24/20 11:19 HH [id number]) OP-PT Subjective Patient Comments Patient Comments I havent been collapsing with my L leg so far. I ve been doing my clamshell and it works well. Patient Reported Progress Improving PT-OP-G Mobility & Gait Start: 01/10/20 13:46 Freq: Status: Active Protocol: Document 01/10/20 14:30 HH (Rec: 01/10/20 14:54 [email or web address]) OP Gait Assessment Gait Gait Assistance Required: Independent Assistive Devices Assistive Device Front Wheeled Walker Orthotic/Prosthetic Devices or Brace: No Gait Deviations General Gait Pattern Antalgic,Decreased Stride Length,Decreased Feet Clearance Factors Limiting Gait Function Factors Limiting Gait Function Decreased Activity Tolerance, Decreased Sensation,Decreased Strength,Limited Range of Motion,Pain,Poor Balance Comments Gait Comments antalgic and trendelenburg gait noted on L side. decreased WB and push off on L side. Stair Climbing Evaluation Evaluation Level of Assist On Stairs Standby Assistance Devices Stair Climbing Assistive Devices Left Railing,Right Railing Technique/Endurance Stair Climbing Direction Ascend and Descend Stair Climbing Technique Step Over Step Number of Steps Climbed 4 Stair Climbing Set # Repetitions (reps) 2 Comments Stair Climbing Comments increased use of UE assistance on railings with WB on LLE. PT-OP-K Range of Motion Start: 01/10/20 13:46 Freq: Status: Active Protocol: Document 01/10/20 14:30 HH (Rec: 01/10/20 14:54 [email or web address]) Hip Goniometric Range of Motion Hip Right Active Hip ROM WFL Yes Straight Leg Raise 92 Extension 12 Abduction 26 Left Active Hip ROM WFL Yes Testing Position Supine Straight Leg Raise 90 Extension 10 Abduction 22 PT-OP-M Strength Start: 01/10/20 13:46 Freq: Status: Active Protocol: Document 01/10/20 14:30 HH (Rec: 01/10/20 14:54 [email or web address]) Hip Strength Hip Manual Muscle Testing Right Flexion (L2) 4+ Good+ Extension (S1) 4+ Good+ Abduction 4+ Good+ Adduction 4+ Good+ Left Flexion (L2) 4- Good- Extension (S1) 4- Good- Abduction 3 Fair Adduction 4- Good- Knee Strength Knee Manual Muscle Testing Right Flexion (S2) 4+ Good+ Extension (L3) 4+ Good+ Left Flexion (S2) 4- Good- Extension (L3) 4- Good- Ankle/Foot Strength Ankle and Foot Manual Muscle Testing Right Dorsiflexion (L4) 4+ Good+ Plantarflexion (S1) 4+ Good+ Inversion 4+ Good+ Eversion (S1) 4+ Good+ Left Dorsiflexion (L4) 4+ Good+ Plantarflexion (S1) 4+ Good+ Inversion 4+ Good+ Eversion (S1) 4+ Good+ PT-OP-Q Treatments Start: 01/10/20 13:46 Freq: Status: Active Protocol: Document 01/24/20 10:33 (Rec: 01/24/20 11:19 [id number]) Cardio Equipment Recumbent Stepper (Sci-Fit) Duration (Minutes) 5 Resistance 2.5 Gym Equipment Shuttle Rebound squat Exercise Details Bilateral and unilateral Reps/Duration 12 reps x 2 sets Comments 50# bilateral to warm up 50# on L 75# on R Therapeutic Exercises Supine Exercises supine clamshell Side bilateral Equipment Used yellow band Reps/Minutes 12 x2 Comments w/ yellow band bridging Supine Exercise Name w slight hip ER Side bilateral Equipment Used yellow band Reps/Minutes 12 x2 Comments w/ yellow band on knees to facilitate hip ER. Standing Exercises side stepping Side bilateral Equipment Used yellow band Reps/Minutes 20 ft x 5 Comments with knee bent step ups Standing Exercise Name 4 then 6 Side left Equipment Used support from railings Reps/Minutes 10 x2 Comments R hip drop noted Gait Training Gait Activity gait training Description next to //bar, stance on L first then walking. Device Used none Level of Assistance SBA Surface ground level Distance/Duration 16 mins Treatment Focus gait training Comments started with 1 UE support and cues on preventing R hip drop then progressed to 1 UE support then none. Pt dieter very well witohut discomfort. PT-OP-T Assessment and Plan Start: 01/10/20 13:46 Freq: Status: Active Protocol: Document 01/24/20 10:33 (Rec: 01/24/20 11:19 [id number]) Physical Therapy Assessment Goals walking Impairment pt is using FWW for mobility now Real Estate Financial Analyst Goal (LTG) pt will be able to mobilize without any AD and antalgic sign during ambulation LTG Duration 8 weeks hip strength Impairment hip abd strength = 3/5 Fpc Goal (LTG) Pt will regain her L hip abduction strength to 4+/5 to improve hip stability for walking LTG Duration 8 weeks stair climbing Impairment pt was unable to climb stair without supervision and rails Real Estate Financial Analyst Goal (LTG) Pt will be able to climb home stairs without supervision and only use 1 rail for reciprocal pattern. LTG Duration 8 weeks LEFS Impairment pt scores 43 on LEFS Short Term Goal (STG) pt will score 48 or greater on LEFS to improve quality of life STG Duration 4 weeks Fpc Goal (LTG) pt will score 63 or greater on LEFS to improve quality of life LTG Duration 8 weeks Assessment Summary Assessment Pt has improved L LE and hip stability and strength. Added step up, side stepping and cont gait training to focus on L stance phase. Physical Therapy Plan Next Visit Focus/Plan Next Note Type Treatment Note Next Visit Plan review HEP gait training with/without AD L hip strengthening stepper/ bike leg press SL stance
--- NOTE | 2020-01-31 12:11 | PT.OTN ---
Current Diagnoses Fracture of unspecified part of neck of left femur, subsequent encounter for closed fracture with routine healing (01/31/20) Strain of unspecified muscle(s) and tendon(s) at lower leg level, left leg, subsequent encounter (01/31/20) Physical Therapy Treatment Note PT-OP-A Visit Information Start: 01/10/20 13:46 Freq: Status: Active Protocol: Document 01/31/20 10:34 HH (Rec: 01/31/20 11:18 HH [id number]) Out-Patient Physical Therapy Visit Information Visit Information Visit Type Treatment Note Visit Start Time 10:32 Visit Stop Time 11:15 Total Visit Minutes 43 Visit Number 4 Number of SURFACE SUPERVISOR Visits 0 PT-OP-B Current Condition Start: 01/10/20 13:46 Freq: Status: Active Protocol: Document 01/10/20 14:30 HH (Rec: 01/10/20 14:54 HH [email or web address]) Current Condition History of Current Condition Onset Date 12/17/19 Current Complaints s/p screw fixation of left femoral neck fx after a GLF History of Current Condition Pt is a 74-year-old female status post fall at home onto her left hip from stairs on 03/28. She went to the emergency room due to increasing pain with weight- bearing. and x-rays demonstrated a valgus impacted femoral neck fracture on the left. Pt had percutaneous cannulated screw fixation on the same day and she was hospitalized for a day then d/ c to home with assistance. Pt has been doing well since and she amb with a FWW. Pt does not have much c/o currently and only 2/10 pain to amb. She has not been using stairs at home but would like to get back to it since there 's new installed hand rails. Pt has been doing ankle pumps, quad set, glute set, heel slide and leg abd for HEP. Pt will have a follow up with Dr. Griffith on 01/27. Pt is very active for PLOF who walks 1/2 mile a day, go to the pool 5 times/ week and aerobic class 3 times /week at home. Treatment Goals Patient/Caregiver Goals To improve her balance and L strength to be able to walk without walker again to be able to climb stair without assistance again. PT-OP-C Subjective Start: 08/03/20 13:46 Freq: Status: Active Protocol: Document 01/31/20 10:34 HH (Rec: 01/31/20 11:18 HH [id number]) OP-PT Subjective Patient Comments Patient Comments Im doing really good. i started not using the cane but i still feel a bit unstable for my first step sometimes. Patient Reported Progress Improving PT-OP-G Mobility & Gait Start: 01/10/20 13:46 Freq: Status: Active Protocol: Document 01/10/20 14:30 HH (Rec: 01/10/20 14:54 [email or web address]) OP Gait Assessment Gait Gait Assistance Required: Independent Assistive Devices Assistive Device Front Wheeled Walker Orthotic/Prosthetic Devices or Brace: No Gait Deviations General Gait Pattern Antalgic,Decreased Stride Length,Decreased Feet Clearance Factors Limiting Gait Function Factors Limiting Gait Function Decreased Activity Tolerance, Decreased Sensation,Decreased Strength,Limited Range of Motion,Pain,Poor Balance Comments Gait Comments antalgic and trendelenburg gait noted on L side. decreased WB and push off on L side. Stair Climbing Evaluation Evaluation Level of Assist On Stairs Standby Assistance Devices Stair Climbing Assistive Devices Left Railing,Right Railing Technique/Endurance Stair Climbing Direction Ascend and Descend Stair Climbing Technique Step Over Step Number of Steps Climbed 4 Stair Climbing Set # Repetitions (reps) 2 Comments Stair Climbing Comments increased use of UE assistance on railings with WB on LLE. PT-OP-K Range of Motion Start: 01/10/20 13:46 Freq: Status: Active Protocol: Document 01/10/20 14:30 HH (Rec: 01/10/20 14:54 [email or web address]) Hip Goniometric Range of Motion Hip Right Active Hip ROM WFL Yes Straight Leg Raise 92 Extension 12 Abduction 26 Left Active Hip ROM WFL Yes Testing Position Supine Straight Leg Raise 90 Extension 10 Abduction 22 PT-OP-M Strength Start: 01/10/20 13:46 Freq: Status: Active Protocol: Document 01/10/20 14:30 HH (Rec: 01/10/20 14:54 [email or web address]) Hip Strength Hip Manual Muscle Testing Right Flexion (L2) 4+ Good+ Extension (S1) 4+ Good+ Abduction 4+ Good+ Adduction 4+ Good+ Left Flexion (L2) 4- Good- Extension (S1) 4- Good- Abduction 3 Fair Adduction 4- Good- Knee Strength Knee Manual Muscle Testing Right Flexion (S2) 4+ Good+ Extension (L3) 4+ Good+ Left Flexion (S2) 4- Good- Extension (L3) 4- Good- Ankle/Foot Strength Ankle and Foot Manual Muscle Testing Right Dorsiflexion (L4) 4+ Good+ Plantarflexion (S1) 4+ Good+ Inversion 4+ Good+ Eversion (S1) 4+ Good+ Left Dorsiflexion (L4) 4+ Good+ Plantarflexion (S1) 4+ Good+ Inversion 4+ Good+ Eversion (S1) 4+ Good+ PT-OP-Q Treatments Start: 01/10/20 13:46 Freq: Status: Active Protocol: Document 01/31/20 10:34 (Rec: 01/31/20 11:18 [id number]) Cardio Equipment Recumbent Stepper (Sci-Fit) Duration (Minutes) 6 Resistance 3.0 Seat Position 10 Other 1 mile. Therapeutic Exercises Standing Exercises hurdles Standing Exercise Name climb over aquilino unilaterally Side bilateral Reps/Minutes 8 times x 6 round trips sit to stand Standing Exercise Name with 4 inch box underneath on R foot Side left Equipment Used 4 inch box Comments for HEP, to facilitate WB on LLE toe tap Standing Exercise Name 3 way toe tap side stepping Side bilateral Equipment Used yellow band Reps/Minutes 20 ft x 5 Comments with knee bent step ups Standing Exercise Name 6 Side left Equipment Used support from railings Reps/Minutes 10 x2 Comments slight momentum noted, but improved R hip drop PT-OP-T Assessment and Plan Start: 01/10/20 13:46 Freq: Status: Active Protocol: Document 01/31/20 10:34 (Rec: 01/31/20 11:18 [id number]) Physical Therapy Assessment Goals walking Impairment pt is using FWW for mobility now Sawmill Relief Worker Goal (LTG) pt will be able to mobilize without any AD and antalgic sign during ambulation LTG Duration 8 weeks hip strength Impairment hip abd strength = 3/5 Sawmill Relief Worker Goal (LTG) Pt will regain her L hip abduction strength to 4+/5 to improve hip stability for walking LTG Duration 8 weeks stair climbing Impairment pt was unable to climb stair without supervision and rails Sawmill Relief Worker Goal (LTG) Pt will be able to climb home stairs without supervision and only use 1 rail for reciprocal pattern. LTG Duration 8 weeks LEFS Impairment pt scores 43 on LEFS Short Term Goal (STG) pt will score 48 or greater on LEFS to improve quality of life STG Duration 4 weeks Sawmill Relief Worker Goal (LTG) pt will score 63 or greater on LEFS to improve quality of life LTG Duration 8 weeks Assessment Summary Assessment Pt cont progress well with improved SL balance, strength. Pt still has minimal compensation by WB more on RLE for sit to stand slight limping during gait witohut AD . Cont to focus on SL balance and SL strength today. Pt most likely will be d/c in 2 visit . Will cont focus on gait training next time. Physical Therapy Plan Next Visit Focus/Plan Next Note Type Treatment Note Next Visit Plan review HEP gait training with/without AD L hip strengthening stepper/ bike leg press SL stance
--- NOTE | 2020-02-07 12:03 | PT.OTN ---
Current Diagnoses Fracture of unspecified part of neck of left femur, subsequent encounter for closed fracture with routine healing (02/07/20) Strain of unspecified muscle(s) and tendon(s) at lower leg level, left leg, subsequent encounter (02/07/20) Physical Therapy Treatment Note PT-OP-A Visit Information Start: 01/10/20 13:46 Freq: Status: Active Protocol: Document 02/07/20 10:37 HH (Rec: 02/07/20 12:03 HH [id number]) Out-Patient Physical Therapy Visit Information Visit Information Visit Type Treatment Note Visit Start Time 10:33 Visit Stop Time 11:15 Total Visit Minutes 42 Visit Number 5 Number of PROGRAM AIDE Visits 0 PT-OP-B Current Condition Start: 01/10/20 13:46 Freq: Status: Active Protocol: Document 01/10/20 14:30 HH (Rec: 01/10/20 14:54 HH [email or web address]) Current Condition History of Current Condition Onset Date 12/17/19 Current Complaints s/p screw fixation of left femoral neck fx after a GLF History of Current Condition Pt is a 74-year-old female status post fall at home onto her left hip from stairs on 03/28. She went to the emergency room due to increasing pain with weight- bearing. and x-rays demonstrated a valgus impacted femoral neck fracture on the left. Pt had percutaneous cannulated screw fixation on the same day and she was hospitalized for a day then d/ c to home with assistance. Pt has been doing well since and she amb with a FWW. Pt does not have much c/o currently and only 2/10 pain to amb. She has not been using stairs at home but would like to get back to it since there 's new installed hand rails. Pt has been doing ankle pumps, quad set, glute set, heel slide and leg abd for HEP. Pt will have a follow up with Dr. Griffith on 01/27. Pt is very active for PLOF who walks 1/2 mile a day, go to the pool 5 times/ week and aerobic class 3 times /week at home. Treatment Goals Patient/Caregiver Goals To improve her balance and L strength to be able to walk without walker again to be able to climb stair without assistance again. PT-OP-C Subjective Start: 08/03/20 13:46 Freq: Status: Active Protocol: Document 02/07/20 10:37 HH (Rec: 02/07/20 12:03 HH [id number]) OP-PT Subjective Patient Comments Patient Comments Im not using the cane anymore . I still have my L leg collapsing with my first step sometimes. Patient Reported Progress Improving PT-OP-G Mobility & Gait Start: 01/10/20 13:46 Freq: Status: Active Protocol: Document 01/10/20 14:30 HH (Rec: 01/10/20 14:54 [email or web address]) OP Gait Assessment Gait Gait Assistance Required: Independent Assistive Devices Assistive Device Front Wheeled Walker Orthotic/Prosthetic Devices or Brace: No Gait Deviations General Gait Pattern Antalgic,Decreased Stride Length,Decreased Feet Clearance Factors Limiting Gait Function Factors Limiting Gait Function Decreased Activity Tolerance, Decreased Sensation,Decreased Strength,Limited Range of Motion,Pain,Poor Balance Comments Gait Comments antalgic and trendelenburg gait noted on L side. decreased WB and push off on L side. Stair Climbing Evaluation Evaluation Level of Assist On Stairs Standby Assistance Devices Stair Climbing Assistive Devices Left Railing,Right Railing Technique/Endurance Stair Climbing Direction Ascend and Descend Stair Climbing Technique Step Over Step Number of Steps Climbed 4 Stair Climbing Set # Repetitions (reps) 2 Comments Stair Climbing Comments increased use of UE assistance on railings with WB on LLE. PT-OP-K Range of Motion Start: 01/10/20 13:46 Freq: Status: Active Protocol: Document 01/10/20 14:30 HH (Rec: 01/10/20 14:54 [email or web address]) Hip Goniometric Range of Motion Hip Right Active Hip ROM WFL Yes Straight Leg Raise 92 Extension 12 Abduction 26 Left Active Hip ROM WFL Yes Testing Position Supine Straight Leg Raise 90 Extension 10 Abduction 22 PT-OP-M Strength Start: 01/10/20 13:46 Freq: Status: Active Protocol: Document 01/10/20 14:30 HH (Rec: 01/10/20 14:54 [email or web address]) Hip Strength Hip Manual Muscle Testing Right Flexion (L2) 4+ Good+ Extension (S1) 4+ Good+ Abduction 4+ Good+ Adduction 4+ Good+ Left Flexion (L2) 4- Good- Extension (S1) 4- Good- Abduction 3 Fair Adduction 4- Good- Knee Strength Knee Manual Muscle Testing Right Flexion (S2) 4+ Good+ Extension (L3) 4+ Good+ Left Flexion (S2) 4- Good- Extension (L3) 4- Good- Ankle/Foot Strength Ankle and Foot Manual Muscle Testing Right Dorsiflexion (L4) 4+ Good+ Plantarflexion (S1) 4+ Good+ Inversion 4+ Good+ Eversion (S1) 4+ Good+ Left Dorsiflexion (L4) 4+ Good+ Plantarflexion (S1) 4+ Good+ Inversion 4+ Good+ Eversion (S1) 4+ Good+ PT-OP-Q Treatments Start: 01/10/20 13:46 Freq: Status: Active Protocol: Document 02/07/20 10:37 HH (Rec: 02/07/20 12:03 [id number]) Cardio Equipment Recumbent Stepper (Sci-Fit) Duration (Minutes) 6 Resistance 3.0 Seat Position 10 Other 1 mile. Therapeutic Exercises Standing Exercises lunges Side bilateral hurdles Standing Exercise Name climb over aquilino unilaterally Side bilateral Reps/Minutes 8 times x 6 round trips sit to stand Standing Exercise Name with 4 inch box underneath on R foot Side left Equipment Used 4 inch box Comments for HEP, to facilitate WB on LLE toe tap Standing Exercise Name 3 way toe tap Side bilateral Comments Pt has better performance by standing on RLE than L step ups Standing Exercise Name 6 Side left Equipment Used support from railings Reps/Minutes 10 x2 Comments slight momentum noted, but improved R hip drop Neuro Re-Education Treatment Balance Activities uneven surface Details blue foam Reps/Duration 2 mins Comments EC and EO staggered stance Surface ground level Comments tactile cues on fully weight shifting on L side before walking to facilitate proper weight acceptance PT-OP-T Assessment and Plan Start: 01/10/20 13:46 Freq: Status: Active Protocol: Document 02/07/20 10:37 HH (Rec: 02/07/20 12:03 [id number]) Physical Therapy Assessment Goals walking Impairment pt is using FWW for mobility now Care Home Goal (LTG) pt will be able to mobilize without any AD and antalgic sign during ambulation LTG Duration 8 weeks hip strength Impairment hip abd strength = 3/5 Funeral Service Apprentice Goal (LTG) Pt will regain her L hip abduction strength to 4+/5 to improve hip stability for walking LTG Duration 8 weeks stair climbing Impairment pt was unable to climb stair without supervision and rails Care Home Goal (LTG) Pt will be able to climb home stairs without supervision and only use 1 rail for reciprocal pattern. LTG Duration 8 weeks Assessment Summary Assessment Pt shows improved L hip strength and balance so far but still has a mini limping during L stance phase. She tends to feel better / more stable after strengthening / balancing ex.
--- NOTE | 2020-02-15 10:29 | PT.OPDS ---
Current Diagnoses Fracture of unspecified part of neck of left femur, subsequent encounter for closed fracture with routine healing (02/15/20) Strain of unspecified muscle(s) and tendon(s) at lower leg level, left leg, subsequent encounter (02/15/20) Visit Care Team Role Provider Type Dorian Villa MD Attending Provider Physician Primary Care Provider Referring Provider Specialty: Internal Medicine Address: [address] [place] [address], [facility] Email: [email or web address] Visit Number Visit Number 6 Discharge Summary PT-OP-B Current Condition Start: 01/10/20 13:46 Freq: Status: Active Protocol: Document 01/10/20 14:30 HH (Rec: 01/10/20 14:54 HH [email or web address]) Current Condition History of Current Condition Onset Date 12/17/19 Current Complaints s/p screw fixation of left femoral neck fx after a GLF History of Current Condition Pt is a 74-year-old female status post fall at home onto her left hip from stairs on 03/28. She went to the emergency room due to increasing pain with weight- bearing. and x-rays demonstrated a valgus impacted femoral neck fracture on the left. Pt had percutaneous cannulated screw fixation on the same day and she was hospitalized for a day then d/ c to home with assistance. Pt has been doing well since and she amb with a FWW. Pt does not have much c/o currently and only 2/10 pain to amb. She has not been using stairs at home but would like to get back to it since there 's new installed hand rails. Pt has been doing ankle pumps, quad set, glute set, heel slide and leg abd for HEP. Pt will have a follow up with Dr. Griffith on 01/27. Pt is very active for PLOF who walks 1/2 mile a day, go to the pool 5 times/ week and aerobic class 3 times /week at home. Treatment Goals Patient/Caregiver Goals To improve her balance and L strength to be able to walk without walker again to be able to climb stair without assistance again. PT-OP-C Subjective Start: 01/10/20 13:46 Freq: Status: Active Protocol: Document 02/15/20 09:52 HH (Rec: 02/15/20 10:29 HH [id number]) OP-PT Subjective Patient Comments Patient Comments I think i am ready to be discharged. My first step getting out of the chair is getting so much better now.: Patient Reported Progress Improving PT-OP-G Mobility & Gait Start: 01/10/20 13:46 Freq: Status: Active Protocol: Document 01/10/20 14:30 HH (Rec: 01/10/20 14:54 [email or web address]) OP Gait Assessment Gait Gait Assistance Required: Independent Assistive Devices Assistive Device Front Wheeled Walker Orthotic/Prosthetic Devices or Brace: No Gait Deviations General Gait Pattern Antalgic,Decreased Stride Length,Decreased Feet Clearance Factors Limiting Gait Function Factors Limiting Gait Function Decreased Activity Tolerance, Decreased Sensation,Decreased Strength,Limited Range of Motion,Pain,Poor Balance Comments Gait Comments antalgic and trendelenburg gait noted on L side. decreased WB and push off on L side. Stair Climbing Evaluation Evaluation Level of Assist On Stairs Standby Assistance Devices Stair Climbing Assistive Devices Left Railing,Right Railing Technique/Endurance Stair Climbing Direction Ascend and Descend Stair Climbing Technique Step Over Step Number of Steps Climbed 4 Stair Climbing Set # Repetitions (reps) 2 Comments Stair Climbing Comments increased use of UE assistance on railings with WB on LLE. PT-OP-K Range of Motion Start: 01/10/20 13:46 Freq: Status: Active Protocol: Document 01/10/20 14:30 HH (Rec: 01/10/20 14:54 [email or web address]) Hip Goniometric Range of Motion Hip Right Active Hip ROM WFL Yes Straight Leg Raise 92 Extension 12 Abduction 26 Left Active Hip ROM WFL Yes Testing Position Supine Straight Leg Raise 90 Extension 10 Abduction 22 PT-OP-M Strength Start: 01/10/20 13:46 Freq: Status: Active Protocol: Document 01/10/20 14:30 HH (Rec: 01/10/20 14:54 [email or web address]) Hip Strength Hip Manual Muscle Testing Right Flexion (L2) 4+ Good+ Extension (S1) 4+ Good+ Abduction 4+ Good+ Adduction 4+ Good+ Left Flexion (L2) 4- Good- Extension (S1) 4- Good- Abduction 3 Fair Adduction 4- Good- Knee Strength Knee Manual Muscle Testing Right Flexion (S2) 4+ Good+ Extension (L3) 4+ Good+ Left Flexion (S2) 4- Good- Extension (L3) 4- Good- Ankle/Foot Strength Ankle and Foot Manual Muscle Testing Right Dorsiflexion (L4) 4+ Good+ Plantarflexion (S1) 4+ Good+ Inversion 4+ Good+ Eversion (S1) 4+ Good+ Left Dorsiflexion (L4) 4+ Good+ Plantarflexion (S1) 4+ Good+ Inversion 4+ Good+ Eversion (S1) 4+ Good+ PT-OP-T Assessment and Plan Start: 01/10/20 13:46 Freq: Status: Active Protocol: Document 02/15/20 09:52 (Rec: 02/15/20 10:29 [id number]) Physical Therapy Assessment Goals walking Impairment pt is using FWW for mobility now Senior Care Goal (LTG) Pt is independent without any AD for mobility LTG Duration 8 weeks hip strength Impairment hip abd strength = 3/5 Dredge Mechanic Goal (LTG) 02/14 goal met pt regained all her hip strength and is symmetrical to R hip LTG Duration 8 weeks stair climbing Impairment pt was unable to climb stair without supervision and rails Senior Care Goal (LTG) 02/14. pt has not used any AD for 3 weeks. LTG Duration 8 weeks LEFS Impairment pt scores 43 on LEFS Short Term Goal (STG) pt will score 48 or greater on LEFS to improve quality of life STG Duration 4 weeks Dredge Mechanic Goal (LTG) 02/14 Pt scores 72/80 for LEFS LTG Duration 8 weeks Progress Towards Goals Progress Towards Goals Goals Met Assessment Summary Assessment Pt progressed very well and met all rehab goals who is independent with all mobility without using AD. Spent time reviewed home ex with her today. Physical Therapy Plan Discharge Physical Therapy Discharge Reasons Goals Met
== END 2020-02-16 13:10 ==
LOC: PHYS 09:45
PROVIDERS: PCP Internal Medicine; Referring Provider Internal Medicine; Visit Provider Internal Medicine
DX: S72.002D Fracture of unspecified part of neck of left femur, subsequent encounter for closed fracture with routine healing (principal); S86.912D Strain of unspecified muscle(s) and tendon(s) at lower leg level, left leg, subsequent encounter
CPT/HCPCS: 97110; 97116; 97161; 97530

== ENCOUNTER → 2020-03-22 10:05 | Outpatient (CLI) | payer MEDICARE, SELFPAY ==
[2019-12-17 12:45] VITALS: BMI 30.7
== END ==
PROVIDERS: PCP Internal Medicine; Visit Provider Nurse Practitioner
DX: N39.0 Urinary tract infection, site not specified (principal)
CPT/HCPCS: 87077; 87086; 87186

== ENCOUNTER → 2020-09-27 18:43 | Outpatient (ROUT) | payer MEDICARE, SELFPAY ==
[2019-12-17 12:45] VITALS: BMI 30.7
[2020-09-27 19:11] LABS: Aspartate Aminotransferase 41 IU/L (14-36); BUN Creatinine Ratio 17.3 (6-22); Blood Urea Nitrogen 18 mg/dL (7-17); Calcium 9.9 mg/dL (8.4-10.2); Carbon Dioxide 24 mmol/L (22-32); Chloride 108 mmol/L (98-107); Cholesterol 169 mg/dL (140-199); Estimated Glomerular Filt Rate 51.4 mL/min (>60); Glucose 96 mg/dL (80-110); HDL Cholesterol 41 mg/dL (40-60); HEMOLYSIS < 15 (0-50); LDL Cholesterol Calculated 83 mg/dL (<100); Potassium 4.5 mmol/L (3.4-5.1); Sodium 142 mmol/L (137-145); Triglycerides 227 mg/dL (35-150)
[2020-09-27 19:41] LABS: TSH w/ Reflex to FT4 1.17 uIU/mL (0.47-4.68)
== END ==
PROVIDERS: PCP Internal Medicine; Visit Provider Internal Medicine
DX: I10 Essential (primary) hypertension (principal); E78.2 Mixed hyperlipidemia; E03.9 Hypothyroidism, unspecified
CPT/HCPCS: 80048; 80061; 84443; 84450

== ENCOUNTER → 2020-09-29 14:01 | Outpatient (CLI) | payer MEDICARE, SELFPAY ==
[2019-12-17 12:45] VITALS: BMI 30.7
[2020-09-29 14:46] LABS: Hemoglobin A1C% w Est Avg Glu 6.2 % (4.0-6.0)
== END ==
PROVIDERS: PCP Internal Medicine; Referring Provider Internal Medicine; Visit Provider Internal Medicine
DX: R73.01 Impaired fasting glucose (principal)
CPT/HCPCS: 36415; 83036

== ENCOUNTER → 2021-10-10 10:42 | Outpatient (CLI) | payer MEDICARE, SELFPAY ==
[2019-12-17 12:45] VITALS: BMI 30.7
[2021-10-10 11:36] LABS: Hematocrit 44.3 % (36-46); Hemoglobin 15.2 g/dL (12.0-16.0); Mean Corpuscular HGB Conc 34.3 % (30-36); Mean Corpuscular Hemoglobin 31.1 PG (26-34); Mean Corpuscular Volume 90.6 fL (80-100); Platelet Count 240 X10^3/uL (150-400); Red Blood Cell Count 4.89 X10^6/uL (4.0-5.2); Red Cell Distribution Width 13.1 % (11.6-14.8); White Blood Cell Count 8.8 X10^3/uL (4.5-11.0)
[2021-10-10 11:51] LABS: Hemoglobin A1C% w Est Avg Glu 6.4 % (4.0-6.0)
[2021-10-10 12:06] LABS: Alanine Aminotransferase 30 IU/L (<35); Albumin 4.5 g/dL (3.5-5.0); Albumin Globulin Ratio 1.2 (1.0-2.8); Alkaline Phosphatase 87 U/L (38-126); Aspartate Aminotransferase 31 IU/L (14-36); BUN Creatinine Ratio 17.1 (6-22); Bilirubin Total 0.6 mg/dL (0.2-1.3); Blood Urea Nitrogen 18 mg/dL (7-17); Calcium 9.5 mg/dL (8.4-10.2); Carbon Dioxide 27 mmol/L (22-32); Chloride 106 mmol/L (98-107); Cholesterol 182 mg/dL (140-199); Estimated Glomerular Filt Rate 54 mL/min (>60); Globulin 3.8 g/dL (1.7-4.1); Glucose 128 mg/dL (80-110); HDL Cholesterol 39 mg/dL (40-60); HEMOLYSIS < 15 (0-50); LDL Cholesterol Calculated 101 mg/dL (<100); Potassium 4.6 mmol/L (3.4-5.1); Sodium 141 mmol/L (137-145); Total Protein 8.3 g/dL (6.3-8.2); Triglycerides 209 mg/dL (35-150)
== END ==
PROVIDERS: PCP Internal Medicine; Referring Provider Internal Medicine; Visit Provider Internal Medicine
DX: E03.9 Hypothyroidism, unspecified (principal); E78.2 Mixed hyperlipidemia; G60.9 Hereditary and idiopathic neuropathy, unspecified; I10 Essential (primary) hypertension; R73.01 Impaired fasting glucose
CPT/HCPCS: 36415; 80053; 80061; 83036; 84443; 85027

== ENCOUNTER → 2022-10-16 07:17 | Outpatient (CLI) | payer MEDICARE, SELFPAY ==
[2019-12-17 12:45] VITALS: BMI 30.7
[2022-10-16 08:05] LABS: Add Manual Diff / Slide Review NO; Basophils Absolute Auto 100 /uL (0-100); Basophils Percent Auto 0.6 % (0-2); Eosinophils Absolute Auto 300 /uL (0-450); Eosinophils Percent Auto 3.2 % (2-4); Hematocrit 44.4 % (36-46); Hemoglobin 15.1 g/dL (12.0-16.0); Lymphocytes Absolute Auto 2500 /uL (1100-4500); Lymphocytes Percent Auto 25.4 % (25-40); Mean Corpuscular HGB Conc 34.1 % (30-36); Mean Corpuscular Hemoglobin 30.6 PG (26-34); Mean Corpuscular Volume 89.8 fL (80-100); Monocytes Absolute Auto 800 /uL (0-900); Monocytes Percent Auto 8.5 % (3-14); Neutrophils Absolute Auto 6100 /uL (1500-7000); Neutrophils Percent Auto 62.3 % (50-75); Platelet Count 290 X10^3/uL (150-400); Red Blood Cell Count 4.94 X10^6/uL (4.0-5.2); Red Cell Distribution Width 13.9 % (11.6-14.8); White Blood Cell Count 9.7 X10^3/uL (4.5-11.0)
[2022-10-16 08:08] LABS: Alanine Aminotransferase 31 IU/L (<35); Albumin 4.4 g/dL (3.5-5.0); Albumin Globulin Ratio 1.1 (1.0-2.8); Alkaline Phosphatase 85 U/L (38-126); Aspartate Aminotransferase 30 IU/L (14-36); BUN Creatinine Ratio 17.5 (6-22); Bilirubin Total 0.7 mg/dL (0.2-1.3); Blood Urea Nitrogen 18 mg/dL (7-17); Calcium 9.3 mg/dL (8.4-10.2); Carbon Dioxide 23 mmol/L (22-32); Chloride 105 mmol/L (98-107); Cholesterol 177 mg/dL (140-199); Estimated Glomerular Filt Rate 55 mL/min (>60); Globulin 4.1 g/dL (1.7-4.1); Glucose 149 mg/dL (80-110); HDL Cholesterol 36 mg/dL (40-60); HEMOLYSIS < 15 (0-50); LDL Cholesterol Calculated 104 mg/dL (<100); Potassium 4.3 mmol/L (3.4-5.1); Sodium 139 mmol/L (137-145); Total Protein 8.5 g/dL (6.3-8.2); Triglycerides 187 mg/dL (35-150)
[2022-10-16 09:22] LABS: Creatinine Urine Random 84.2 mg/dL
[2022-10-16 09:24] LABS: Microalbumin Urine Random 1.1 mg/dL (0-1.6)
[2022-10-16 09:49] LABS: Thyroid Stimulating Hormone 1.62 uIU/mL (0.47-4.68)
[2022-10-17 05:32] LABS: x Labcorp Estim. Avg Glu (eAG) 143 mg/dL (.); x Labcorp Hemoglobin A1c 6.6 % (4.8-5.6)
== END ==
PROVIDERS: PCP Internal Medicine; Referring Provider Internal Medicine; Visit Provider Internal Medicine
DX: E03.9 Hypothyroidism, unspecified (principal); E66.09 Other obesity due to excess calories; E78.2 Mixed hyperlipidemia; I10 Essential (primary) hypertension; Z68.31 Body mass index [BMI] 31.0-31.9, adult; R73.01 Impaired fasting glucose
CPT/HCPCS: 36415; 80053; 80061; 82043; 82570; 83036; 84443; 85025

== ENCOUNTER → 2022-10-17 07:03 | Outpatient (CLI) | payer MEDICARE, SELFPAY ==
[2019-12-17 12:45] VITALS: BMI 30.7
== END ==
PROVIDERS: PCP Internal Medicine; Visit Provider Nurse Practitioner Family
DX: N39.0 Urinary tract infection, site not specified (principal)
CPT/HCPCS: 87077; 87086; 87186

== ENCOUNTER → 2022-10-25 14:54 | Outpatient (CLI) | payer MEDICARE, SELFPAY ==
[2019-12-17 12:45] VITALS: BMI 30.7
== END ==
PROVIDERS: PCP Internal Medicine; Visit Provider Nurse Practitioner Family
DX: N39.0 Urinary tract infection, site not specified (principal)
CPT/HCPCS: 87077; 87086; 87186

== ENCOUNTER → 2022-12-22 10:17 | Outpatient (CLI) | payer MEDICARE, SELFPAY ==
[2019-12-17 12:45] VITALS: BMI 30.7
== END ==
PROVIDERS: PCP Internal Medicine; Visit Provider Nurse Practitioner Family
DX: R10.9 Unspecified abdominal pain (principal)
CPT/HCPCS: 87086

== ENCOUNTER → 2023-05-06 07:57 | Outpatient (CLI) | payer MEDICARE, SELFPAY ==
[2019-12-17 12:45] VITALS: BMI 30.7
[2023-05-06 09:32] LABS: Hemoglobin A1C% w Est Avg Glu 6.4 % (4.0-6.0)
[2023-05-06 10:18] LABS: BUN Creatinine Ratio 15.5 (6-22); Blood Urea Nitrogen 15 mg/dL (7-17); Calcium 9.6 mg/dL (8.4-10.2); Carbon Dioxide 25 mmol/L (22-32); Chloride 105 mmol/L (98-107); Estimated Glomerular Filt Rate 59 mL/min (>60); Glucose 125 mg/dL (80-110); HEMOLYSIS < 15 (0-50); Potassium 4.6 mmol/L (3.4-5.1); Sodium 138 mmol/L (137-145)
[2023-05-06 10:20] LABS: Creatinine Urine Random 110.3 mg/dL
[2023-05-06 10:27] LABS: Microalbumi Creatinin Ratio Ur 22.6 ug/mg CR (<30); Microalbumin Urine Random 2.5 mg/dL (0-1.6)
== END ==
PROVIDERS: PCP Internal Medicine; Referring Provider Internal Medicine; Visit Provider Internal Medicine
DX: E11.69 Type 2 diabetes mellitus with other specified complication (principal); E78.5 Hyperlipidemia, unspecified
CPT/HCPCS: 36415; 80048; 82043; 82570; 83036

== ENCOUNTER 2023-06-22 09:00 | Emergency (ER) | payer MEDICARE, SELFPAY ==
[2019-12-17 12:45] VITALS: BMI 30.7
[2023-06-22 09:05] VITALS: BP 185/86; PULSE 109
[2023-06-22 09:08] VITALS: BP 185/85; PULSE 109; RESP 20; TEMP 36.3; O2SAT 97; BMI 27.4
--- NOTE | 2023-06-22 09:08 | DI.RAD.S_ITS ---
PROCEDURE: XR CHEST 2V INDICATIONS: 14 days of a cough TECHNIQUE: 2 views of the chest were acquired. COMPARISON: [facility], CR, XR CHEST 2V, 05/18/2018, 8:59. FINDINGS: Surgical changes and devices: Surgical clips within the right breast.. Lungs and pleura: Diffuse bilateral interstitial opacities slightly increased to comparison 2018 without distinct concerning consolidation. Mediastinum: Mediastinal contours are normal. Heart size is normal. Bones and chest wall: No suspicious bony abnormalities. Soft tissues appear unremarkable. IMPRESSION: Diffuse bilateral interstitial opacities slightly increased from comparison likely reflects progression of chronic interstitial lung disease however cannot exclude superimposed infection. Dictated by: Sherman Cody M.D. on 06/22/2023 at 8:28 Approved by: Sherman Cody M.D. on 06/22/2023 at 8:32
--- NOTE | 2023-06-22 09:15 | ED.GENADULT ---
HPI - General Adult General Chief complaint: Upper Respiratory Symptoms Stated complaint: cough t-14 Time Seen by Provider: 06/22/23 09:08 Source: patient Mode of arrival: Ambulatory Limitations: no limitations History of Present Illness HPI narrative: Patient is an 78-year-old female. Has a history of high blood pressure. No underlying lung pathology. Is here for evaluation of several months of a nonproductive cough. She has been seen 2 times in the past most recently 2 weeks ago at the walk-in clinic. Has been on conservative measures to include Tessalon Perles, Claritin, other antihistamines, [id number] cough and cold medications. She is here because of a persistent nonproductive cough. No chest pain. No fevers. No current sinus congestion. No sore throat. No abdominal pain or nausea vomiting. No lower extremity edema. No recent traveling. No change in medications. She has not on lisinopril. Related Data Home Medications Medication Instructions Recorded Confirmed CA PANTOTHENATE/FOLIC ACID/VIT 1 tab PO Q DAY ##0 09/11/11 06/10/23 (MULTIVITAMIN) FLAXSEED (FLAXSEED OIL) 1 cap PO Q DAY ##0 09/11/11 06/10/23 cholecalciferol (vitamin D3) 50 2,000 unit PO QDAY ##0 01/04/13 06/10/23 mcg (2,000 unit) capsule (Vitamin D3) Previous Rx's Medication Instructions Recorded atorvastatin 20 mg tablet (Lipitor) 20 mg PO HS #90 tabs 11/19/22 amlodipine 5 mg tablet 5 mg PO DAILY #90 tabs 01/28/23 levothyroxine 88 mcg tablet 88 mcg PO DAILY #90 tabs 03/31/23 fluticasone propionate 50 1 spray intranasal Q12H #16 grams 05/26/23 mcg/actuation nasal spray,suspension (Flonase Allergy Relief) benzonatate 200 mg capsule 200 mg PO BID PRN cough #28 caps 06/10/23 azithromycin 250 mg tablet See Rx Instructions PO .COMPLEX #6 06/22/23 tabs Allergies Allergy/AdvReac Type Severity Reaction Status Date / Time adhesive tape Allergy Mild SKIN Verified 06/10/23 15:35 IRRITATION bacitracin [BACITRACIN] Allergy Mild REDNESS Verified 06/10/23 15:35 Review of Systems Constitutional Constitutional: Reports system reviewed and no additional complaints, except as documented ENT Ears, Nose, Mouth, and Throat: Reports system reviewed and no additional complaints, except as documented Cardiovascular Cardiovascular: Reports system reviewed and no additional complaints, except as documented Respiratory Respiratory: Reports system reviewed and no additional complaints, except as documented Integumentary/Breasts Skin/Breast: Reports system reviewed and no additional complaints, except as documented Hematologic/Lymphatic On Anticoagulants: No Patient History Medical History DM type 2 with diabetic dyslipidemia Obesity Osteopenia after menopause Hereditary and idiopathic neuropathy, unspecified History of colon polyps Mixed hyperlipidemia Essential hypertension Wears glasses Hearing loss (~2019) Interstitial lung disease Hayfever (1969) Kidney tumor (benign) (08/11/09) Colon polyps (1999) BCC (basal cell carcinoma of skin) (1994) History of colonic polyps (01/30/17) Mixed hyperlipidemia (03/29/15) Essential hypertension (03/29/15) Acquired hypothyroidism (03/29/15) Surgical History History of hip surgery (~08/2009) Anesthesia History of hysteroscopy Status post colonoscopy History of nephrectomy (08/11/09) History of cataract removal with insertion of prosthetic lens (2004) Family History Brother No problems noted. Father Lung cancer Mother Uterine cancer Social History marital status: number of children: 2 household members: spouse lives independently: Yes caregiver/support person: No housing: house Smoking Status: Never smoker second hand exposure: No alcohol intake: current substance use type: does not use Smoking Status: Never smoker alcohol intake frequency: a few times a week Substance Use Type: does not use Exam Initial Vital Signs Initial Vital Signs: Vital Signs Pulse Rate 109 H 06/22/23 09:05 Blood Pressure 185/86 H 06/22/23 09:05 Const General: cooperative, comfortable and No ill appearing HENMT Head: normal to inspection and normocephalic Ears: TM's normal bilaterally Mouth: oral mucosae normal Resp Effort & Inspection: normal respiratory effort and cough Auscultation: clear to auscultation bilaterally Cardio Rate: tachycardic Rhythm: regular rhythm Skin General: no rashes or lesions noted Neuro General: patient alert and patient awake Extrem General: capillary refill normal Course Orders Ordered: ED Orders 06/22/23 09:08 XR chest 2V Stat Vital Signs Vital signs: Vital Signs - 8 hr 06/22/23 09:05 06/22/23 09:05 06/22/23 09:08 Temperature 97.3 F L Pulse Rate 109 H 109 H Respiratory Rate 20 Blood Pressure 185/86 H 185/85 H Pulse Oximetry 97 Oxygen Delivery Method Room Air 06/22/23 09:30 Temperature Pulse Rate 105 H Respiratory Rate 27 H Blood Pressure Pulse Oximetry 94 Oxygen Delivery Method Room Air Medical Decision Making Imaging Data Chest x-ray: Radiologist's Impression: PROCEDURE: XR CHEST 2V INDICATIONS: 14 days of a cough TECHNIQUE: 2 views of the chest were acquired. COMPARISON: [facility], , XR CHEST 2V, 05/18/2018, 8:59. FINDINGS: Surgical changes and devices: Surgical clips within the right breast.. Lungs and pleura: Diffuse bilateral interstitial opacities slightly increased to comparison 2018 without distinct concerning consolidation. Mediastinum: Mediastinal contours are normal. Heart size is normal. Bones and chest wall: No suspicious bony abnormalities. Soft tissues appear unremarkable. IMPRESSION: Diffuse bilateral interstitial opacities slightly increased from comparison likely reflects progression of chronic interstitial lung disease however cannot exclude superimposed infection. MDM Narrative Medical decision making narrative: Patient has had weeks if not months of persistent cough. Has been doing [id number] cough and cold preparations as well as antihistamines. Chest x-ray today shows bilateral opacities. Comparison chest x-ray was from 2018. She denies any underlying lung pathology. Given the length of time that she has had symptoms what she is tried to home we will attempt a course of antibiotics. She understands that this is not guaranteed to help her symptoms. She has a follow-up with her primary doctor on Friday of this week. No fevers. She is tachycardic today but the past 2 time she has been seen in the walk-in clinic her heart rate has been elevated. She states this always happens to her when she comes to the doctor because she gets somewhat scared about being in the medical setting. Prescription for antibiotics was sent to the pharmacy of her choice. She was instructed to keep her appointment with her primary doctor on Friday. Recommended a follow-up chest x-ray when symptoms have resolved. Patient expressed understanding and agreement. Discharge Plan Departure Patient Disposition: Home Clinical Impression: Atypical pneumonia Instructions: DI for Atypical Pneumonia Activity Restrictions/Additional Instructions: I do recommend that you continue to take all of your medications as directed. I do recommend that you keep your appointment that you have scheduled on Friday. You can continue to take the cough and cold preparations that you have been doing at home for symptom treatment. Return to the emergency department for new symptoms Prescriptions: New azithromycin 250 mg tablet See Rx Instructions .ROUTE .COMPLEX Qty: 6 0RF Rx Instructions: For 250 mg dose pack: take 500 mg today (day 1), then 250 mg for 4 days (days 2-5) No Action fluticasone propionate [Flonase Allergy Relief] 50 mcg/actuation spray,suspension 1 spray intranasal Q12H Qty: 16 0RF Rx Instructions: administer into each nostril benzonatate 200 mg capsule 200 mg PO BID PRN (Reason: cough) Qty: 28 0RF FLAXSEED (FLAXSEED OIL) 1 cap PO Q DAY Qty: 0 CA PANTOTHENATE/FOLIC ACID/VIT (MULTIVITAMIN) 1 tab PO Q DAY Qty: 0 cholecalciferol (vitamin D3) [Vitamin D3] 2,000 UNIT capsule 2,000 unit PO QDAY Qty: 0 atorvastatin [Lipitor] 20 mg tablet 20 mg PO HS Qty: 90 3RF amlodipine 5 mg tablet 5 mg PO DAILY Qty: 90 3RF levothyroxine 88 mcg tablet 88 mcg PO DAILY Qty: 90 1RF Referrals: Dorian Villa MD [Primary Care Provider] - Stand Alone Forms: Patient Portal/API
[2023-06-22 09:30] VITALS: PULSE 105; RESP 27; O2SAT 94
== END 2023-06-22 09:48 | disposition home or self-care (01) ==
PROVIDERS: Emergency Provider Emergency Medicine; PCP Internal Medicine
DX: J18.9 Pneumonia, unspecified organism (principal)
CPT/HCPCS: 71046; 99283

== ENCOUNTER → 2023-10-15 12:17 | Outpatient (CLI) | payer MEDICARE, SELFPAY ==
[2019-12-17 12:45] VITALS: BMI 30.7
[2023-10-15 13:18] LABS: Hemoglobin A1C% w Est Avg Glu 6.3 % (4.0-6.0)
[2023-10-15 13:25] LABS: Aspartate Aminotransferase 31 IU/L (14-36); BUN Creatinine Ratio 16.7 (6-22); Blood Urea Nitrogen 18 mg/dL (7-17); Calcium 9.9 mg/dL (8.4-10.2); Carbon Dioxide 24 mmol/L (22-32); Chloride 105 mmol/L (98-107); Cholesterol 150 mg/dL (140-199); Estimated Glomerular Filt Rate 52 mL/min (>60); Glucose 164 mg/dL (80-110); HDL Cholesterol 40 mg/dL (40-60); HEMOLYSIS < 15 (0-50); LDL Cholesterol Calculated 80 mg/dL (<100); Potassium 4.4 mmol/L (3.4-5.1); Sodium 140 mmol/L (137-145); Triglycerides 150 mg/dL (35-150)
[2023-10-15 13:54] LABS: TSH w/ Reflex to FT4 0.47 uIU/mL (0.47-4.68)
[2023-10-15 14:35] LABS: Microalbumin Urine Random 15.8 mg/dL (0-1.6)
[2023-10-15 14:37] LABS: Creatinine Urine Random 94.6 mg/dL
== END ==
PROVIDERS: PCP Internal Medicine; Referring Provider Internal Medicine; Visit Provider Internal Medicine
DX: E11.69 Type 2 diabetes mellitus with other specified complication (principal); E78.5 Hyperlipidemia, unspecified; E03.9 Hypothyroidism, unspecified; I10 Essential (primary) hypertension; E78.2 Mixed hyperlipidemia
CPT/HCPCS: 36415; 80048; 80061; 82043; 82570; 83036; 84443; 84450

== ENCOUNTER 2024-02-01 10:49 | Emergency (ER) | payer MEDICARE, SELFPAY ==
[2019-12-17 12:45] VITALS: BMI 30.7
[2024-02-01 11:04] VITALS: BP 126/76; PULSE 89; RESP 28; TEMP 36.6; O2SAT 95; BMI 23.2
--- NOTE | 2024-02-01 11:11 | DI.RAD.S_ITS ---
PROCEDURE: XR CHEST 1V INDICATIONS: chest pain TECHNIQUE: One view of the chest was acquired. COMPARISON: [facility], CR, XR CHEST 2V, 06/22/2023, 9:10. FINDINGS: Surgical changes and devices: Right breast clips are seen. Upper abdominal clips are seen. Lungs and pleura: Generalized interstitial prominence can be seen. No pneumothorax is seen. There is blunting of the left costophrenic angle. Mediastinum: Mediastinal contours appear normal. Heart size is mildly enlarged. Bones and chest wall: No suspicious bony lesions. Age-appropriate bony degenerative changes are seen. Overlying soft tissues appear unremarkable. IMPRESSION: Mild cardiomegaly with interstitial prominence and a potential left-sided pleural effusion. Please consider CHF. Differential diagnosis for the pulmonary findings includes baseline parenchymal coarsening, however. Postoperative and degenerative changes are seen. Dictated by: Osito Adams M.D. on 02/01/2024 at 10:54 Approved by: Osito Adams M.D. on 02/01/2024 at 10:56
[2024-02-01 11:15] VITALS: PULSE 87; RESP 25; O2SAT 95
--- NOTE | 2024-02-01 11:23 | EKG_ITS ---
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
[2024-02-01 11:26] VITALS: BP 134/83; PULSE 89; RESP 29; O2SAT 94
[2024-02-01 11:30] VITALS: BP 135/70; PULSE 82; RESP 20; O2SAT 96
[2024-02-01 11:30] LABS: Add Manual Diff / Slide Review NO; Basophils Absolute Auto 100 /uL (0-100); Basophils Percent Auto 0.5 % (0-2); Eosinophils Absolute Auto 100 /uL (0-450); Eosinophils Percent Auto 1.1 % (2-4); Hematocrit 45.9 % (36-46); Hemoglobin 15.5 g/dL (12.0-16.0); Lymphocytes Absolute Auto 1300 /uL (1100-4500); Lymphocytes Percent Auto 11.8 % (25-40); Mean Corpuscular HGB Conc 33.7 % (30-36); Mean Corpuscular Hemoglobin 30.5 PG (26-34); Mean Corpuscular Volume 90.5 fL (80-100); Monocytes Absolute Auto 1000 /uL (0-900); Monocytes Percent Auto 8.7 % (3-14); Neutrophils Absolute Auto 8800 /uL (1500-7000); Neutrophils Percent Auto 77.9 % (50-75); Platelet Count 305 X10^3/uL (150-400); Red Blood Cell Count 5.08 X10^6/uL (4.0-5.2); Red Cell Distribution Width 13.5 % (11.6-14.8); White Blood Cell Count 11.2 X10^3/uL (4.5-11.0)
[2024-02-01 11:35] LABS: INR 1.1 (0.9-1.3); Prothrombin Time 12.1 SECONDS (9.4-12.5)
[2024-02-01 11:38] LABS: PTT Partial Thromboplastin Tim 35 SECONDS (25.1-36.5)
[2024-02-01 11:48] LABS: Alanine Aminotransferase 31 IU/L (<35); Albumin 4.4 g/dL (3.5-5.0); Albumin Globulin Ratio 1.1 (1.0-2.8); Alkaline Phosphatase 83 U/L (38-126); Aspartate Aminotransferase 31 IU/L (14-36); BUN Creatinine Ratio 12.9 (6-22); Bilirubin Total 0.8 mg/dL (0.2-1.3); Blood Urea Nitrogen 11 mg/dL (7-17); Carbon Dioxide 23 mmol/L (22-32); Chloride 104 mmol/L (98-107); Creatine Kinase 32 U/L (30-135); Estimated Glomerular Filt Rate > 60 mL/min (>60); Globulin 4.1 g/dL (1.7-4.1); Glucose 164 mg/dL (80-110); HEMOLYSIS < 15 (0-50); Lipase 100 U/L (23-300); Magnesium 2.2 mg/dL (1.6-2.3); Potassium 4.1 mmol/L (3.4-5.1); Sodium 138 mmol/L (137-145); Total Protein 8.5 g/dL (6.3-8.2)
[2024-02-01 11:58] LABS: NT-proBNP (BNP-Adult 18+) 104 pg/mL (<450); Troponin I < 0.012 ng/mL (0.01-0.034)
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
[2024-02-01 12:00] VITALS: BP 137/70; PULSE 80; RESP 18; O2SAT 96
== END 2024-02-01 12:29 | disposition home or self-care (01) ==
PROVIDERS: Emergency Provider Emergency Medicine; PCP Internal Medicine
DX: R07.9 Chest pain, unspecified (principal); Z65.8 Other specified problems related to psychosocial circumstances
CPT/HCPCS: 36415; 71045; 80053; 82550; 83690; 83735; 83880; 84484; 85025; 85610; 85730; 93005; 99283; 99284

== ENCOUNTER → 2024-05-25 10:57 | Outpatient (CLI) | payer MEDICARE, SELFPAY ==
[2019-12-17 12:45] VITALS: BMI 30.7
[2024-05-25 12:57] LABS: BUN Creatinine Ratio 15.1 (6-22); Blood Urea Nitrogen 16 mg/dL (7-17); Carbon Dioxide 27 mmol/L (22-32); Chloride 105 mmol/L (98-107); Estimated Glomerular Filt Rate 53 mL/min (>60); Glucose 121 mg/dL (80-110); HEMOLYSIS < 15 (0-50); Potassium 4.8 mmol/L (3.4-5.1); Sodium 140 mmol/L (137-145)
[2024-05-25 13:02] LABS: Hemoglobin A1C% w Est Avg Glu 5.7 % (4.0-6.0)
[2024-05-25 14:17] LABS: Creatinine Urine Random 86.01 mg/dL
[2024-05-25 14:20] LABS: Microalbumin Urine Random 2.8 mg/dL (0-1.6)
== END ==
PROVIDERS: PCP Internal Medicine; Referring Provider Internal Medicine; Visit Provider Internal Medicine
DX: E11.29 Type 2 diabetes mellitus with other diabetic kidney complication (principal); R80.9 Proteinuria, unspecified
CPT/HCPCS: 36415; 80048; 82043; 82570; 83036

== ENCOUNTER → 2024-06-14 11:28 | Outpatient (CLI) | payer MEDICARE, SELFPAY ==
[2019-12-17 12:45] VITALS: BMI 30.7
--- NOTE | 2024-06-14 11:28 | DI.CT.S_ITS ---
PROCEDURE: CT CHEST HIGH RESOLUTION INDICATIONS: pulmonaryfibrosis TECHNIQUE: Noncontrast 1.0 and 5.0 mm thick contiguous axial sections from the pulmonary apex to the posterior costophrenic angles, with 7 mm thick coronal and sagittal MIP reformats. 1 mm thick dynamic expiratory images acquired through the upper, mid, and lower lungs. 1.0 mm thick axial sections acquired from the jacinta to the posterior costophrenic angles in the prone end-inspiration position. For radiation dose reduction, the following was used: automated exposure control, adjustment of mA and/or kV according to patient size. COMPARISON: CT 2018. FINDINGS: Image quality: Diagnostic. Lower Neck: No enlarged lymph nodes. Thyroid: No thyroid nodules which require sonographic follow up, per consensus guidelines. Axillae: No enlarged lymph nodes. Chest Wall: Surgical clips in the right breast. Bones: Unremarkable. Lungs and Pleura: No pneumothorax or pleural effusions. Basilar predominant reticulation with bronchiectasis. No subpleural sparing. No air trapping or ground-glass. Early honeycombing is suspected. Heart: Heart size is enlarged, with 2 vessel coronary calcifications and mitral valve calcifications. No pericardial effusion. Thoracic Vessels: Dilated main pulmonary artery measuring 3.2 cm. Mediastinum and Suni: Prominent mediastinal lymph nodes, likely reactive Esophagus: No wall thickening. No hiatal hernia. Upper Abdomen: Left nephrectomy. Cyst with fluid attenuation in segment 4. Additional subcentimeter hypoattenuating lesions, too small to characterize by CT. IMPRESSION: Definite UIP pattern of interstitial lung disease. Findings have slightly progressed since 2018. Dilated pulmonary artery, suggestive of pulmonary hypertension. Prominent mediastinal lymph nodes which are likely reactive to the interstitial lung disease. No suspicious solid nodules. Dictated by: Vinicio Jeong M.D. on 06/14/2024 at 15:00 Approved by: Vinicio Jeong M.D. on 06/14/2024 at 15:29
== END ==
PROVIDERS: PCP Internal Medicine; Referring Provider Internal Medicine; Visit Provider Internal Medicine
DX: J84.9 Interstitial pulmonary disease, unspecified (principal); R05.3 Chronic cough; I25.10 Atherosclerotic heart disease of native coronary artery without angina pectoris; I51.7 Cardiomegaly; I34.81 Nonrheumatic mitral (valve) annulus calcification; Z90.5 Acquired absence of kidney
CPT/HCPCS: 71250

== ENCOUNTER → 2024-06-15 13:10 | Outpatient (CLI) | payer MEDICARE, SELFPAY ==
[2019-12-17 12:45] VITALS: BMI 30.7
== END ==
PROVIDERS: PCP Internal Medicine; Referring Provider Internal Medicine; Visit Provider Internal Medicine
DX: J84.9 Interstitial pulmonary disease, unspecified (principal); R05.3 Chronic cough; R94.2 Abnormal results of pulmonary function studies
CPT/HCPCS: 94060; 94726; 94729

== ENCOUNTER 2024-07-20 14:51 | Inpatient (IN) | payer MEDICARE, SELFPAY ==
[2019-12-17 12:45] VITALS: BMI 30.7
[2024-07-20] VITALS (10 sets, daily range): BP systolic 155–183; BP diastolic 82–100; PULSE 75–103; RESP 16–46; TEMP 36.4–36.6; O2SAT 94–97; BMI 23.3; BMI 23.5
--- NOTE | 2024-07-20 15:10 | DI.CT.S_ITS ---
PROCEDURE: CT ANGIO HEAD AND NECK INDICATIONS: L sided ataxia, L fine motor issue TECHNIQUE: After the administration of intravenous contrast, 1 mm thick sections acquired from the aortic arch through the [place] of [place]. 3-dimensional erufomn-sditafjaq-rhjxkrfgqk (MIP) and/or volume rendering reformats were acquired of the central intracranial vasculature and neck separately. For radiation dose reduction, the following was used: automated exposure control, adjustment of mA and/or kV according to patient size. COMPARISON: [facility], CT, CT CHEST HIGH RESOLUTION, 06/14/2024, 11:30. FINDINGS: Image quality: Diagnostic. BRAIN: Please refer to same day CT of the head HEAD CT ANGIOGRAPHY: Anterior circulation: Intracranial internal carotid arteries are normal in size and flow with atherosclerotic calcifications. The flow within the paired anterior cerebral arteries is normal and symmetric. The flow within the middle cerebral arteries is normal and symmetric. The anterior communicating artery is seen. No aneurysms are seen. Posterior circulation: Visualized portions of the vertebral arteries demonstrate normal caliber, and join to form a normal appearing basilar artery. Flow within the posterior cerebral arteries is normal and symmetric. No aneurysms are seen. NECK CT ANGIOGRAPHY: Carotid system: The great vessels demonstrate a conventional anatomy as they arise from the aortic arch. The origins of the common carotid arteries appear patent. The common carotid arteries demonstrate normal caliber and courses. The bifurcation regions demonstrate atherosclerotic calcifications without significant stenosis on the right and moderate, approximately 50% stenosis on the left.. The internal carotid arteries demonstrate normal calibers and courses. Posterior circulation: The origins of the vertebral arteries both appear widely patent. The more superior extracranial portions of both vertebral arteries also demonstrate normal courses and calibers. They join to form a normal appearing basilar artery. Soft tissues: Visualized neck soft tissues demonstrate no suspicious abnormalities. Enlarged hilar and mediastinal lymph nodes. Redemonstration of pulmonary fibrotic changes, better evaluated on recent high-resolution CT chest 06/14/2024. Dilated main pulmonary artery suggestive of pulmonary hypertension. Bones: No suspicious bony lesions. Visualized cervical spine appears normally aligned. Degenerative changes of the spine. IMPRESSION: No significant intracranial arterial abnormality is seen. Approximately 50% stenosis of the left proximal ICA. Otherwise, no significant abnormality is seen within the arteries of the neck. Enlarged mediastinal and hilar lymph nodes. Significant pulmonary fibrotic changes, better evaluated on prior high-resolution CT chest 06/14/2024. Any quantitative measurements of stenosis were performed using NASCET criteria. Dictated by: Blane Tomlinson M.D. on 07/20/2024 at 15:43 Approved by: Blane Tomlinson M.D. on 07/20/2024 at 16:07
--- NOTE | 2024-07-20 15:10 | EKG_ITS ---
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
--- NOTE | 2024-07-20 15:10 | DI.CT.S_ITS ---
PROCEDURE: CT HEAD/BRAIN WO CON INDICATIONS: Positive BE-FAST, Stroke symptoms TECHNIQUE: Noncontrast 4.5 mm thick angled axial sections acquired from the foramen magnum to the vertex, with coronal and sagittal reformats. For radiation dose reduction, the following was used: automated exposure control, adjustment of mA and/or kV according to patient size. COMPARISON: None. FINDINGS: Image quality: Diagnostic. CSF spaces: Basal cisterns are patent. No extra-axial fluid collections. The ventricles are symmetric in size and shape. Brain: No intracranial bleeds or masses. There is cerebral volume loss for age, with resultant ventricular and sulcal prominence. There are periventricular and deep white matter chronic small vessel ischemic changes. There is intracranial internal carotid artery atherosclerosis. Skull and face: Calvarium and visualized facial bones appear intact, without suspicious lesions. Sinuses: Visualized sinuses and mastoids are clear. IMPRESSION: No acute intracranial pathology. Age related volume loss and mdtd-vs-scbeigyp white matter small vessel chronic ischemic changes. Dictated by: Caden Millan M.D. on 07/20/2024 at 15:50 Approved by: Caden Millan M.D. on 07/20/2024 at 15:51
--- NOTE | 2024-07-20 15:10 | DI.RAD.S_ITS ---
PROCEDURE: XR CHEST 1V INDICATIONS: Possible stroke TECHNIQUE: One view of the chest was acquired. COMPARISON: [facility], CR, XR CHEST 1V, 02/01/2024, 11:09. FINDINGS: Surgical changes and devices: None. Lungs and pleura: Increased reticular markings in bilateral lung mcgraw are seen. Superimposed left lower lobe infiltrate cannot be excluded. Trace left pleural effusion is likely present. No pneumothorax. Mediastinum: Mediastinal contours appear normal. Heart size is enlarged. Bones and chest wall: No suspicious bony lesions. Overlying soft tissues appear unremarkable. IMPRESSION: Suggestion of chronic interstitial lung parenchymal disease. Superimposed interstitial infiltrates cannot be entirely excluded particularly in left lower lung field. Trace left pleural effusion. No pneumothorax. Dictated by: Caden Millan M.D. on 07/20/2024 at 15:49 Approved by: Caden Millan M.D. on 07/20/2024 at 15:49
[2024-07-20 15:33] LABS: Add Manual Diff / Slide Review NO; Basophils Absolute Auto 0 /uL (0-100); Basophils Percent Auto 0.3 % (0-2); Eosinophils Absolute Auto 200 /uL (0-450); Eosinophils Percent Auto 1.7 % (2-4); Hematocrit 44.2 % (36-46); Lymphocytes Absolute Auto 1500 /uL (1100-4500); Lymphocytes Percent Auto 14.3 % (25-40); Mean Corpuscular Hemoglobin 31.5 PG (26-34); Mean Corpuscular Volume 92.6 fL (80-100); Monocytes Absolute Auto 800 /uL (0-900); Monocytes Percent Auto 7.6 % (3-14); Neutrophils Absolute Auto 8000 /uL (1500-7000); Neutrophils Percent Auto 76.1 % (50-75); Platelet Count 248 X10^3/uL (150-400); Red Blood Cell Count 4.77 X10^6/uL (4.0-5.2); White Blood Cell Count 10.5 X10^3/uL (4.5-11.0)
[2024-07-20 15:41] LABS: Prothrombin Time 11.4 SECONDS (9.4-12.5)
[2024-07-20 15:43] LABS: PTT Partial Thromboplastin Tim 36 SECONDS (25.1-36.5)
[2024-07-20 15:46] LABS: Alanine Aminotransferase 35 IU/L (<35); Albumin 4.5 g/dL (3.5-5.0); Albumin Globulin Ratio 0.9 (1.0-2.8); Alkaline Phosphatase 75 U/L (38-126); Aspartate Aminotransferase 39 IU/L (14-36); BUN Creatinine Ratio 21.5 (6-22); Bilirubin Total 0.6 mg/dL (0.2-1.3); Blood Urea Nitrogen 20 mg/dL (7-17); Calcium 9.6 mg/dL (8.4-10.2); Carbon Dioxide 25 mmol/L (22-32); Chloride 106 mmol/L (98-107); Creatine Kinase 54 U/L (30-135); Estimated Glomerular Filt Rate > 60 mL/min (>60); Glucose 136 mg/dL (80-110); HEMOLYSIS < 15 (0-50); Magnesium 1.9 mg/dL (1.6-2.3); Potassium 4.2 mmol/L (3.4-5.1); Sodium 141 mmol/L (137-145); Total Protein 9.5 g/dL (6.3-8.2)
[2024-07-20 15:58] LABS: Troponin I < 0.012 ng/mL (0.01-0.034)
[2024-07-20 18:12] LABS: Bacteria Urine Many (>30); RBC Urine None Seen (0-5/HPF); Squamous Epithelial Cell Urine None Seen (0-5/HPF); Urine Volume 10mL (spun); WBC Urine 10-30/HPF (0-5/HPF)
[2024-07-20 18:13] LABS: Culture Indicated Urine Specimen Cultured
[2024-07-20 19:20] LABS: Ur Creatinine Normal (Normal); Ur Specific Gravity Normal (Normal); Urine Amphetamines Negative (Negative); Urine Barbiturates Negative (Negative); Urine Benzodiazepines Negative (Negative); Urine Cocaine Negative (Negative); Urine MDMA Negative (Negative); Urine Methadone Negative (Negative); Urine Methamphetamines Negative (Negative); Urine Opiates Negative (Negative); Urine Oxycodone Negative (Negative); Urine Phencyclidine Negative (Negative); Urine THC Negative (Negative); Urine Tricyclic Antidepressant Negative (Negative); Urine pH Normal (Normal)
--- NOTE | 2024-07-20 20:30 | PC.NURSE ---
fPt reports that she has difficulty picking up with left hand. Has numbness to pinky finger, left foot does not dorsiflex as fast or as strong as right side. Strengths and alteration inspector equal throughout.
--- NOTE | 2024-07-20 22:48 | ED_ITS ---
HPI - Neuro Symptoms/Deficit General Chief Complaint: Neuro Symptoms/Deficit Stated Complaint: sent from PCP office for CT scan Time Seen by Provider: 07/20/24 22:48 History of Present Illness HPI Narrative: Patient 79-year-old female history of pulmonary fibrosis diabetes hyperlipidemia hypertension hypothyroid presenting to day with difficulty walking with her left leg and some depth perception issue. She reports that symptoms started yesterday more than 24 hours ago. She felt like she might be dragging her left foot and today when she went to grab things with her left hand she was knocked over a number of things. She has no visual loss no facial droop no slurring of speech. No numbness or tingling. Denies any sort of chest pain or headache On Anticoagulants: No Related Data Home Medications Medication Instructions Recorded Confirmed cholecalciferol (vitamin D3) 50 2,000 unit PO QDAY ##0 01/04/13 07/21/24 mcg (2,000 unit) capsule (Vitamin D3) flaxseed oil 1,000 mg capsule 1,000 mg PO DAILY 07/29/23 07/21/24 multivitamin 1 tab PO DAILY 07/29/23 07/21/24 melatonin 10 mg capsule 10 mg PO BEDTIME PRN Insomnia 02/01/24 07/21/24 lorazepam 0.5 mg tablet 0.5 mg PO BID PRN Anxiety 07/21/24 07/21/24 Previous Rx's Medication Instructions Recorded levothyroxine 88 mcg tablet 88 mcg PO DAILY #90 tabs 09/30/23 atorvastatin 20 mg tablet (Lipitor) 20 mg PO HS #90 tabs 11/04/23 amlodipine 5 mg tablet 5 mg PO DAILY #90 tabs 01/16/24 mirtazapine 15 mg tablet 15 mg PO BEDTIME #90 tabs 05/25/24 budesonide-formoterol HFA 160 2 puff inhalation BID #10.2 grams 06/23/24 mcg-4.5 mcg/actuation aerosol inhaler (Symbicort) spacer #1 ea 06/23/24 Allergies Allergy/AdvReac Type Severity Reaction Status Date / Time adhesive tape Allergy Mild SKIN Verified 06/23/24 12:54 IRRITATION bacitracin [BACITRACIN] Allergy Mild REDNESS Verified 06/23/24 12:54 Review of Systems Hematologic/Lymphatic On Anticoagulants: No Patient History Medical History Idiopathic pulmonary fibrosis Chronic cough Generalized anxiety disorder Type 2 diabetes mellitus with microalbuminuria, without long-term current use of insulin Abnormal mammogram Allergic rhinitis Obesity Osteopenia after menopause Hereditary and idiopathic neuropathy, unspecified History of colon polyps Mixed hyperlipidemia Essential hypertension Wears glasses Hearing loss (~2019) Interstitial lung disease Hayfever (1969) Kidney tumor (benign) (08/11/09) Colon polyps (1999) BCC (basal cell carcinoma of skin) (1994) History of colonic polyps (01/30/17) Mixed hyperlipidemia (03/29/15) Essential hypertension (03/29/15) Acquired hypothyroidism (03/29/15) Surgical History History of hip surgery (~08/2009) Anesthesia History of hysteroscopy Status post colonoscopy History of nephrectomy (08/11/09) History of cataract removal with insertion of prosthetic lens (2004) Family History Brother No problems noted. Father Lung cancer Mother Uterine cancer Social History marital status: number of children: 2 household members: spouse lives independently: Yes caregiver/support person: No housing: house Smoking Status: Never smoker second hand exposure: No alcohol intake: former substance use type: does not use Smoking Status: Never smoker alcohol intake frequency: a few times a week Exam Initial Vital Signs Initial Vital Signs: Vital Signs Temperature 97.8 F 07/20/24 15:01 Pulse Rate 91 H 07/20/24 15:01 Respiratory Rate 16 07/20/24 15:01 Blood Pressure 162/82 H 07/20/24 15:01 Pulse Oximetry 97 07/20/24 15:01 Oxygen Delivery Method Room Air 07/20/24 15:01 GENERAL: Alert pleasant 79-year-old female and in [no acute] distress. HEENT: Head atraumatic,EOMI, pupils reactive, face symmetric, [moist] mucous membranes CARDIOVASCULAR: Regular rate and rhythm without murmurs, rubs or gallops. RESPIRATORY: Breath sounds equal bilaterally, no wheezes rales or rhonchi. ABDOMEN: Soft, nontender. Normoactive bowel sounds all 4 quadrants. No guarding or rebound. EXTREMITIES: Normal range of motion, no clubbing or edema. Neurovascularly intact NEUROLOGICAL: Alert and oriented x4. Gait abnormality with the left leg definitely unstable gait she is some ataxia with the left leg no weakness. Left upper extremity no weakness good gwpncd-oh-plso no facial droop no slurring of speech no peripheral visual loss SKIN: Warm, dry, no laceration, no petechiae, no rashes or lesions. Scores NIH Stroke Scale Level of Conciousness: Alert, keenly responsive Ask month/age: Answers both questions correctly. Open/close eyes, close hand: Performs both tasks correctly Best gaze horizontal: Normal Visual mcgraw: No visual loss Facial palsy: Normal symetrical movement Left arm drift: No drift for full 10 sec Right arm drift: No drift for full 10 sec Left leg drift: No drift for full 5 sec Right leg drift: No drift for full 5 sec Limb ataxia: Present in one limb Sensory on face/arms/legs: Normal, no sensory loss Best language: No aphasia, normal Dysarthria: Normal Extinction or inattention: No abnormality Total NIH Stroke scale score: 1 Course Orders Ordered: Acetaminophen (Acetaminophen 325 Mg Tablet) 650 mg PO Q6H PRN PRN Reason: Fever/Mild Pain (1-3) Albuterol (Albuterol 2.5 Mg/3 Ml Neb (Adult)) 2.5 mg INH Q2H PRN PRN Reason: SHORTNESS OF BREATH Aspirin (Aspirin Ec 81 Mg Tablet) 81 mg PO DAILY SHADI Atorvastatin Calcium (Atorvastatin 20 Mg Tablet) 20 mg PO BEDTIME SHADI Budesonide (Budesonide 0.5 Mg/2 Ml Neb) 0.5 mg INH RTBID SHADI Enoxaparin Sodium (Enoxaparin 40 Mg/0.4 Ml Syringe) 40 mg SUBCUT DAILY SHADI Dextrose (D10w) 100 mls @ 1,200 mls/hr IV PRN PRN PRN Reason: Hypoglycemia Insulin Human Lispro (Insulin Lispro 100 Unit/Ml 3ml Vial) 0 unit SUBCUT ACHS SHADI; Protocol Levothyroxine Sodium (Levothyroxine 88 Mcg Tablet) 88 mcg PO 0600 SHADI Lorazepam (Lorazepam 0.5 Mg Tablet) 0.5 mg PO BID PRN PRN Reason: Anxiety Melatonin (Melatonin 3 Mg Tablet) 9 mg PO BEDTIME PRN PRN Reason: INSOMINA Mirtazapine (Mirtazapine 15 Mg Tablet) 15 mg PO BEDTIME [facility] Last Admin: 07/21/24 02:19 Dose: 15 mg Documented By: KOSTA Naloxone HCl (Naloxone 0.4 Mg/Ml Vial) 0.2 mg IV Q2MIN PRN PRN Reason: Opiate Reversal Ondansetron HCl (Ondansetron 4 Mg/2 Ml Inj) 4 mg IV NOW PRN PRN Reason: Nausea And Vomiting Ondansetron HCl (Ondansetron 4 Mg Odt) 4 mg SL NOW PRN PRN Reason: Nausea And Vomiting Discontinued Medications Albuterol (Albuterol 2.5 Mg/3 Ml Neb (Adult)) 2.5 mg INH Q4HRWA [facility] Non-Formulary Medication (Budesonide-Formoterol [Symbicort]) 2 puff INHALATION BID [facility] Non-Formulary Medication (Melatonin) 10 mg PO BEDTIME PRN PRN Reason: Insomnia Vital Signs Vital signs: Vital Signs - 8 hr 07/20/24 21:00 07/20/24 21:00 07/20/24 21:30 Pulse Rate 79 Respiratory Rate 27 H Blood Pressure 156/85 H 160/84 H Pulse Oximetry 96 Oxygen Delivery Method Room Air 07/20/24 21:30 07/20/24 22:00 07/20/24 22:00 Pulse Rate 75 77 Respiratory Rate 25 H 24 Blood Pressure 162/84 H Pulse Oximetry 96 95 Oxygen Delivery Method 07/20/24 22:30 07/20/24 22:30 07/20/24 23:01 Pulse Rate 81 103 H Respiratory Rate 22 46 H Blood Pressure 163/86 H Pulse Oximetry 95 94 Oxygen Delivery Method MDM - Neuro Symptoms/Deficit Lab Data 07/20/24 15:22 07/20/24 15:22 Labs: Lab Results 07/20/24 07/20/24 Range/Units 15:22 17:59 WBC 10.5 (4.5-11.0) X10^3/uL RBC 4.77 (4.0-5.2) X10^6/uL Hgb 15.0 (12.0-16.0) g/dL Hct 44.2 (36-46) % MCV 92.6 (80-100) fL MCH 31.5 (26-34) PG MCHC 34.0 (30-36) % RDW 13.0 (11.6-14.8) % Plt Count 248 (150-400) X10^3/uL Neut % (Auto) 76.1 H (50-75) % Lymph % (Auto) 14.3 L (25-40) % [place] % (Auto) 7.6 (3-14) % Eos % (Auto) 1.7 L (2-4) % Baso % (Auto) 0.3 (0-2) % Neut # (Auto) 8000 H (1999-4170) /uL Lymph # (Auto) 1500 (7316-8469) /uL [place] # (Auto) 800 (0-900) /uL Eos # (Auto) 200 (0-450) /uL Baso # (Auto) 0 (0-100) /uL PT 11.4 (9.4-12.5) SECONDS INR 1.0 (0.9-1.3) APTT 36 (25.1-36.5) SECONDS Sodium 141 (137-145) mmol/L Potassium 4.2 (3.4-5.1) mmol/L Chloride 106 (98-107) mmol/L Carbon Dioxide 25 (22-32) mmol/L BUN 20 H (7-17) mg/dL Creatinine 0.93 (0.52-1.04) mg/dL Estimated GFR > 60 (>60) mL/min BUN/Creatinine Ratio 21.5 (6-22) Glucose 136 H (80-110) mg/dL Calcium 9.6 (8.4-10.2) mg/dL Magnesium 1.9 (1.6-2.3) mg/dL Total Bilirubin 0.6 (0.2-1.3) mg/dL AST 39 H (14-36) IU/L ALT 35 H (<35) IU/L Alkaline Phosphatase 75 (38-126) U/L Total Creatine Kinase 54 (30-135) U/L Troponin I < 0.012 (0.01-0.034) ng/mL Total Protein 9.5 H (6.3-8.2) g/dL Albumin 4.5 (3.5-5.0) g/dL Globulin 5.0 H (1.7-4.1) g/dL Albumin/Globulin Ratio 0.9 L (1.0-2.8) Urine RBC None seen (0-5/HPF) Urine WBC 10-30/hpf H (0-5/HPF) Ur Squamous Epith Cells None seen (0-5/HPF) Urine Bacteria Many (>30) H (None) Ur Culture Indicated? Specimen cultured Vol Urine Centrifuged 10ml (spun) U Opiates 300ng/mL cut Negative (Negative) Ur Oxycodone Screen Negative (Negative) Urine Methadone Screen Negative (Negative) Ur Barbiturates Screen Negative (Negative) U Tricyclic Antidepress Negative (Negative) Ur Phencyclidine Scrn Negative (Negative) Ur Amphetamines Screen Negative (Negative) U Methamphetamines Scrn Negative (Negative) Ur MDMA Scrn (Ecstasy) Negative (Negative) U Benzodiazepines Scrn Negative (Negative) Urine Cocaine Screen Negative (Negative) U Marijuana (THC) Screen Negative (Negative) Urine pH Normal (Normal) Urine Specific [place] Normal (Normal) Ur Creatinine Normal (Normal) Urine Dip Bedside Urine Glucose Negative Bedside Urine Bilirubin - Negative Bedside Urine Ketone - Negative Urine Specific [place] 1.015 Bedside Urine Occult Blood +/- Bedside Urine pH 6.0 Bedside Urine Protein - Negative Bedside Urine Urobilinogen - Negative Bedside Urine Nitrite + Positive Bedside Urine Leukocytes +/- [address] scan - head: Radiologist's Impression: PROCEDURE: CT HEAD/BRAIN WO CON INDICATIONS: Positive BE-FAST, Stroke symptoms TECHNIQUE: Noncontrast 4.5 mm thick angled axial sections acquired from the foramen magnum to the vertex, with coronal and sagittal reformats. For radiation dose reduction, the following was used: automated exposure control, adjustment of mA and/or kV according to patient size. COMPARISON: None. FINDINGS: Image quality: Diagnostic. CSF spaces: Basal cisterns are patent. No extra-axial fluid collections. The ventricles are symmetric in size and shape. Brain: No intracranial bleeds or masses. There is cerebral volume loss for age, with resultant ventricular and sulcal prominence. There are periventricular and deep white matter chronic small vessel ischemic changes. There is intracranial internal carotid artery atherosclerosis. Skull and face: Calvarium and visualized facial bones appear intact, without suspicious lesions. Sinuses: Visualized sinuses and mastoids are clear. IMPRESSION: No acute intracranial pathology. Age related volume loss and qklg-at-pbofysve white matter small vessel chronic ischemic changes. Dictated by: Caden Millan M.D. on 07/20/2024 at 15:50 CTA - brain/neck: Radiologist's Impression: PROCEDURE: CT ANGIO HEAD AND NECK INDICATIONS: L sided ataxia, L fine motor issue TECHNIQUE: After the administration of intravenous contrast, 1 mm thick sections acquired from the aortic arch through the [place] of [place]. 3-dimensional udtzznx-odplpdhut-nxbemeanpw (MIP) and/or volume rendering reformats were acquired of the central intracranial vasculature and neck separately. For radiation dose reduction, the following was used: automated exposure control, adjustment of mA and/or kV according to patient size. COMPARISON: [facility], CT, CT CHEST HIGH RESOLUTION, 06/14/2024, 11:30. FINDINGS: Image quality: Diagnostic. BRAIN: Please refer to same day CT of the head HEAD CT ANGIOGRAPHY: Anterior circulation: Intracranial internal carotid arteries are normal in size and flow with atherosclerotic calcifications. The flow within the paired anterior cerebral arteries is normal and symmetric. The flow within the middle cerebral arteries is normal and symmetric. The anterior communicating artery is seen. No aneurysms are seen. Posterior circulation: Visualized portions of the vertebral arteries demonstrate normal caliber, and join to form a normal appearing basilar artery. Flow within the posterior cerebral arteries is normal and symmetric. No aneurysms are seen. NECK CT ANGIOGRAPHY: Carotid system: The great vessels demonstrate a conventional anatomy as they arise from the aortic arch. The origins of the common carotid arteries appear patent. The common carotid arteries demonstrate normal caliber and courses. The bifurcation regions demonstrate atherosclerotic calcifications without significant stenosis on the right and moderate, approximately 50% stenosis on the left.. The internal carotid arteries demonstrate normal calibers and courses. Posterior circulation: The origins of the vertebral arteries both appear widely patent. The more superior extracranial portions of both vertebral arteries also demonstrate normal courses and calibers. They join to form a normal appearing basilar artery. Soft tissues: Visualized neck soft tissues demonstrate no suspicious abnormalities. Enlarged hilar and mediastinal lymph nodes. Redemonstration of pulmonary fibrotic changes, better evaluated on recent high-resolution CT chest 06/14/2024. Dilated main pulmonary artery suggestive of pulmonary hypertension. Bones: No suspicious bony lesions. Visualized cervical spine appears normally aligned. Degenerative changes of the spine. IMPRESSION: No significant intracranial arterial abnormality is seen. Approximately 50% stenosis of the left proximal ICA. Otherwise, no significant abnormality is seen within the arteries of the neck. Enlarged mediastinal and hilar lymph nodes. Significant pulmonary fibrotic changes, better evaluated on prior high-resolution CT chest 06/14/2024. Any quantitative measurements of stenosis were performed using NASCET criteria. Dictated by: Blane Tomlinson M.D. on 07/20/2024 at 15:43 Chest x-ray: Radiologist's Impression: PROCEDURE: XR CHEST 1V INDICATIONS: Possible stroke TECHNIQUE: One view of the chest was acquired. COMPARISON: [facility], , XR CHEST 1V, 02/01/2024, 11:09. FINDINGS: Surgical changes and devices: None. Lungs and pleura: Increased reticular markings in bilateral lung mcgraw are seen. Superimposed left lower lobe infiltrate cannot be excluded. Trace left pleural effusion is likely present. No pneumothorax. Mediastinum: Mediastinal contours appear normal. Heart size is enlarged. Bones and chest wall: No suspicious bony lesions. Overlying soft tissues appear unremarkable. IMPRESSION: Suggestion of chronic interstitial lung parenchymal disease. Superimposed interstitial infiltrates cannot be entirely excluded particularly in left lower lung field. Trace left pleural effusion. No pneumothorax. Dictated by: Caden Millan M.D. on 07/20/2024 at 15:49 ECG Data Attestation: I personally reviewed and interpreted this ECG as follows: Prior ECG tracings: available for review Interpretation: Sinus rhythm rate 81 CT interval 158 QRS 82 QTC 418 persistent T-wave inversion noted in lead 3 similar to previous EKGs no changes from prior no acute ST depression or elevation MDM Narrative Medical decision making narrative: MDM CC: Left leg weakness Complicating co-morbidities: Hypothyroid hypertension, diabetes Medical records reviewed: Previous PCP record reviewed from May appear that most chronic diseases are fairly well controlled Differential considered: CVA intracranial mass intracranial hemorrhage Exam documented above, pertinent findings include: Patient definitely has a ataxia with ambulation left leg is weak. NIH of 1. She does seem to have some depth perception issues but I do not appreciate hernia. Strength in left arm is 5/5 she has no slurring of speech Lab Test results independently reviewed as above. Pertinent findings: CBC no leukocytosis or anemia CMP no electrolyte abnormality no DARION Troponin negative Independently reviewed EKG as above Persistent T-wave inversion Imaging studies independently reviewed: Head CT noncontrast no acute abnormality CT angio no large vessel occlusion Consultations: Dr. Huff, accepts patient. Treatments: Aspirin Re-evaluations: [ ] Discussion: Patient is an 79-year-old female with history of hypertension hyperlipidemia presenting today with difficulty walking left leg weakness. She reports some perception abnormality with her left hand as well and keeps not think things over. Symptoms started 24 hours ago. Certainly concerning for CVA. She was not a candidate for thrombolytics. CT angio does not show any evidence of large vessel occlusion. Discharge Plan Departure Patient Disposition: Admitted As Inpatient Clinical Impression: CVA (cerebral vascular accident) Admit Date/Time: 07/20/24 23:29 Admit Provider: Stuart Ribera
[2024-07-21] VITALS (7 sets, daily range): BP systolic 114–161; BP diastolic 68–102; PULSE 77–83; RESP 14–20; TEMP 36.3–36.9; O2SAT 94–96
--- NOTE | 2024-07-21 01:33 | DI.MRI.S_ITS ---
PROCEDURE: MR HEAD/BRAIN WO CON INDICATIONS: Neurologic deficit. 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 COMPARISON: [facility], CT, CT ANGIO HEAD AND NECK, 07/20/2024, 15:16. [facility], CT, CT HEAD/BRAIN WO CON, 07/20/2024, 15:16. FINDINGS: Image quality: Excellent. CSF Spaces: Basal cisterns are patent. No extra-axial fluid collections. Ventricles are normal in size and shape. Brain: No intracranial masses or hemorrhage. There is mild, diffuse cerebral volume loss. There are moderate periventricular and subcortical white matter chronic microvascular ischemic changes. Ray/white matter interface is normal. Brainstem appears normal. Punctate focus of restricted diffusion in the right thalamus compatible with acute lacunar infarct. No chronic ischemic insults. Normal intravascular flow voids are present. Skull and face: Calvarium has normal marrow signal. Orbits appear normal. Sinuses: Sinuses and mastoids are clear. IMPRESSION: Acute right thalamic lacunar infarct. No intracranial hemorrhage. Mild, diffuse cerebral volume loss. Moderate periventricular and subcortical white matter chronic microvascular ischemic changes. Dictated by: Vilma Ramos MD, PhD on 07/21/2024 at 10:34 Approved by: Vilma Ramos MD, PhD on 07/21/2024 at 10:36
--- NOTE | 2024-07-21 01:38 | DI.ECHO.S_ITS ---
[place] [facility]+ [facility] : : [address] : : [place] : : [id number] : : Phone: [phone] Echocardiogram Report + + :Name: DARREN STEPHEN Study Date: 07/21/2024 Height: 66 in : :[facility] ReadingLocation: Weight: 145 lb: : Gender: Female BSA: 1.7 m2 : :: 1945 Age: 79 yrs : :Reason For Study: STROKE : :Ordering Physician: ROBERTO : :PEYTON OLSEN Performed By: Pau Barnett : :Referring: PEYTON ALVA : + + Interpretation Summary The ejection fraction is estimated to be 55-60%. Grade II diastolic dysfunction. The left atrium is mildly dilated. Injection of contrast documented no interatrial shunt. The right ventricle is normal in size and function. There is mild mitral regurgitation. There is mild tricuspid regurgitation. Pulmonary artery pressures cannot be estimated because of the lack of a measurable TR jet velocity but the IVC suggests a CVP of around 3 mmHg. Compared to the prior study 10/16/2017, there is no evidence of a PFO by color Doppler or agitated saline contrast on the current study as suggested by color Doppler previously. Procedure: A two-dimensional transthoracic echocardiogram with color flow and Doppler was performed. The study quality was technically adequate. Comparison is made with the echocardiogram of 10/16/2017. The patient was in sinus rhythm with heart rates between 72-84 bpm during the exam. Left Ventricle: The left ventricle is normal in size. Proximal septal thickening is noted. The ejection fraction is estimated to be 55-60%. Diastolic parameters suggest a pseudonormalization pattern, consistent with probable elevated filling pressures. Right Ventricle: The right ventricle is normal in size and function. Atria: The left atrium is mildly dilated. Right atrial size is normal. Injection of contrast documented no interatrial shunt. The atrial septum is aneurysmal. Mitral Valve: The mitral valve leaflets appear to open well. There is mild mitral regurgitation. Aortic Valve: The aortic valve is trileaflet. The aortic valve opens well. There is no aortic valve stenosis. No aortic regurgitation is present. Tricuspid Valve: The tricuspid valve leaflets are thin and pliable. There is mild tricuspid regurgitation. Pulmonary artery pressures cannot be estimated because of the lack of a measurable TR jet velocity but the IVC suggests a CVP of around 3 mmHg. Pulmonic Valve: The pulmonic valve leaflets are thin and pliable; valve motion is normal. There is mild pulmonic regurgitation. Great Vessels: The aortic root is normal size. The dimensions of the ascending aorta are normal. The IVC is of normal diameter and collapses greater than 50% with a sniff. This suggests a low right atrial pressure of 3 mm Hg. Pericardium/ Pleura There is no pericardial effusion. There is no pleural effusion. MMode/2D Measurements & Calculations LVIDd: 4.5 cm LVOT diam: 2.1 cm LVIDs: 3.4 cm Ao root diam: 3.2 cm FS: 25.1 % asc Aorta Diam: 3.6 cm EPSS: 1.2 cm Ao Arch Diam (Prox Trans): 2.5 cm IVSd: 0.80 cm LVPWd: 0.76 cm LV thomas. diameter/BSA (cm/m^2): 2.6 LV sys. diameter/BSA (cm/m^2): 1.9 LA A2 area: 24.0 cm2 RA long axis: 4.8 cm LA A4 area: 16.2 cm2 RA area: 10.4 cm2 LA length (vol): 4.4 cm RA vol: 19.1 ml LA vol: 75.2 ml RA : 11.0 ml/m2 LA vol index: 43.1 ml/m2 IVC diam: 1.3 cm RVD1 (basal): 3.6 cm TAPSE: 1.7 cm Doppler Measurements & Calculations Ao V2 max: 184.1 cm/sec LVOT Max Osei: 109.5 cm/sec Ao V2 mean: 132.8 cm/sec LV V1 max P.8 mmHg Ao max P.6 mmHg LV V1 VTI: 21.6 cm Ao mean P.7 mmHg ELIZABETH(I,D): 2.2 cm2 Ao V2 VTI: 34.9 cm ELIZABETH(V,D): 2.1 cm2 sev ratio: 0.62 ELIZABETH indexed to BSA (cm^2/m^2): 1.2 MV E max osei: 57.8 cm/sec TR max osei: 282.6 cm/sec MV A max osei: 102.6 cm/sec TR max P.0 mmHg MV E/A: 0.56 PA V2 max: 82.5 cm/sec Med Peak E' Osei: 5.4 cm/sec PA V2 mean: 55.0 cm/sec E/E' med: 10.6 PA mean P.4 mmHg Lat Peak E' Osei: 5.0 cm/sec PA pr(Accel): 34.5 mmHg E/E' lat: 11.6 E/e' average: 11.1 MV dec time: 0.30 sec SV(LUCILLE): 75.6 ml Reading Physician:12:34 PM
[2024-07-21] MEDS: MIRTAZAPINE 15 MG TABLET PO ×2 (02:19→20:06)
--- NOTE | 2024-07-21 02:29 | PM.HP.1 ---
History of Present Illness History of Present Illness Chief complaint: sent from PCP office for CT scan Narrative: 79 y/o with PMH of HTN, idiopathic pulmonary fibrosis, mixed HLD, diet-controlled DM, anxiety, presented to ER with left leg and left arm weakness. It started yesterday. Her leg felt heavy and she dropped couple of objects from left hand. CTH and CTA non-revealing, only age-related atrophy. Denies swallowing difficulties, palpitations, chest pain, numbness, headache. BP in the ED elevated. [facility] Medical History Idiopathic pulmonary fibrosis Chronic cough Generalized anxiety disorder Type 2 diabetes mellitus with microalbuminuria, without long-term current use of insulin Abnormal mammogram Allergic rhinitis Obesity Osteopenia after menopause Hereditary and idiopathic neuropathy, unspecified History of colon polyps Mixed hyperlipidemia Essential hypertension Wears glasses Hearing loss (~2019) Interstitial lung disease Hayfever (1969) Kidney tumor (benign) (08/11/09) Colon polyps (1999) BCC (basal cell carcinoma of skin) (1994) History of colonic polyps (01/30/17) Mixed hyperlipidemia (03/29/15) Essential hypertension (03/29/15) Acquired hypothyroidism (03/29/15) Surgical History History of hip surgery (~08/2009) Anesthesia History of hysteroscopy Status post colonoscopy History of nephrectomy (08/11/09) History of cataract removal with insertion of prosthetic lens (2004) Family History Brother No problems noted. Father Lung cancer Mother Uterine cancer Social History marital status: number of children: 2 household members: spouse lives independently: Yes caregiver/support person: No housing: house Smoking Status: Never smoker second hand exposure: No alcohol intake: former substance use type: does not use Meds Home Medications and Allergies Home Medications Medication Instructions Recorded Confirmed Type cholecalciferol (vitamin D3) 50 2,000 unit PO QDAY ##0 01/04/13 07/21/24 History mcg (2,000 unit) capsule (Vitamin D3) flaxseed oil 1,000 mg capsule 1,000 mg PO DAILY 07/29/23 07/21/24 History multivitamin 1 tab PO DAILY 07/29/23 07/21/24 History levothyroxine 88 mcg tablet 88 mcg PO DAILY #90 tabs 09/30/23 07/21/24 Rx atorvastatin 20 mg tablet (Lipitor) 20 mg PO HS #90 tabs 11/04/23 07/21/24 Rx amlodipine 5 mg tablet 5 mg PO DAILY #90 tabs 01/16/24 07/21/24 Rx melatonin 10 mg capsule 10 mg PO BEDTIME PRN Insomnia 02/01/24 07/21/24 History mirtazapine 15 mg tablet 15 mg PO BEDTIME #90 tabs 05/25/24 07/21/24 Rx budesonide-formoterol HFA 160 2 puff inhalation BID #10.2 grams 06/23/24 07/21/24 Rx mcg-4.5 mcg/actuation aerosol inhaler (Symbicort) spacer #1 ea 06/23/24 07/21/24 Rx lorazepam 0.5 mg tablet 0.5 mg PO BID PRN Anxiety 07/21/24 07/21/24 History Allergies Allergy/AdvReac Type Severity Reaction Status Date / Time adhesive tape Allergy Mild SKIN Verified 06/23/24 12:54 IRRITATION bacitracin [BACITRACIN] Allergy Mild REDNESS Verified 06/23/24 12:54 Review of Systems Cardiovascular Comments: w/o palpitations Respiratory Comments: chronic shortness of breath Genitourinary Comments: w/o dysuria or incontinence Neurologic Comments: left arm clumsy, weak hand, dropping objects, weak left lag, dragging it Exam Vital Signs (past 8 hours): - 07/20/24 20:18 07/20/24 20:18 07/20/24 20:30 Temperature Pulse Rate 99 H Respiratory Rate 18 Blood Pressure 183/100 H 177/96 H Pulse Oximetry 95 Oxygen Delivery Method Room Air Oxygen Flow Rate 07/20/24 20:30 07/20/24 21:00 07/20/24 21:00 Temperature Pulse Rate 85 79 Respiratory Rate 24 27 H Blood Pressure 156/85 H Pulse Oximetry 97 96 Oxygen Delivery Method Room Air Oxygen Flow Rate 07/20/24 21:30 07/20/24 21:30 07/20/24 22:00 Temperature Pulse Rate 75 Respiratory Rate 25 H Blood Pressure 160/84 H 162/84 H Pulse Oximetry 96 Oxygen Delivery Method Oxygen Flow Rate 07/20/24 22:00 07/20/24 22:30 07/20/24 22:30 Temperature Pulse Rate 77 81 Respiratory Rate 24 22 Blood Pressure 163/86 H Pulse Oximetry 95 95 Oxygen Delivery Method Oxygen Flow Rate 07/20/24 23:01 07/20/24 23:30 07/20/24 23:51 Temperature Pulse Rate 103 H 77 Respiratory Rate 46 H 22 Blood Pressure Pulse Oximetry 94 96 Oxygen Delivery Method Room Air Room Air Oxygen Flow Rate 07/21/24 00:00 Temperature 97.8 F Pulse Rate 83 Respiratory Rate 17 Blood Pressure 161/102 H Pulse Oximetry 96 Oxygen Delivery Method Oxygen Flow Rate 0 Oxygen Delivery Method Room Air Oxygen Flow Rate 0 Narrative Exam Narrative: General - in no distress HEENT - normocephalic, atraumatic CVS - RRR RS - crackles Neuro - Lt arm dysmetria, Lt distal leg weakness Psych - lucid, appropriate affect Objective ECG Impression: NSR 81, LVH, left axis, PACs Labs 07/20/24 15:22 07/20/24 15:22 Labs: Laboratory Results - last 24 hr 07/20/24 07/20/24 15:22 17:59 WBC 10.5 RBC 4.77 Hgb 15.0 Hct 44.2 MCV 92.6 MCH 31.5 MCHC 34.0 RDW 13.0 Plt Count 248 Neut % (Auto) 76.1 H Lymph % (Auto) 14.3 L [place] % (Auto) 7.6 Eos % (Auto) 1.7 L Baso % (Auto) 0.3 Neut # (Auto) 8000 H Lymph # (Auto) 1500 [place] # (Auto) 800 Eos # (Auto) 200 Baso # (Auto) 0 PT 11.4 INR 1.0 APTT 36 Sodium 141 Potassium 4.2 Chloride 106 Carbon Dioxide 25 BUN 20 H Creatinine 0.93 Estimated GFR > 60 BUN/Creatinine Ratio 21.5 Glucose 136 H Calcium 9.6 Magnesium 1.9 Total Bilirubin 0.6 AST 39 H ALT 35 H Alkaline Phosphatase 75 Total Creatine Kinase 54 Troponin I < 0.012 Total Protein 9.5 H Albumin 4.5 Globulin 5.0 H Albumin/Globulin Ratio 0.9 L Urine RBC None seen Urine WBC 10-30/hpf H Ur Squamous Epith Cells None seen Urine Bacteria Many (>30) H Ur Culture Indicated? Specimen cultured Vol Urine Centrifuged 10ml (spun) U Opiates 300ng/mL cut Negative Ur Oxycodone Screen Negative Urine Methadone Screen Negative Ur Barbiturates Screen Negative U Tricyclic Antidepress Negative Ur Phencyclidine Scrn Negative Ur Amphetamines Screen Negative U Methamphetamines Scrn Negative Ur MDMA Scrn (Ecstasy) Negative U Benzodiazepines Scrn Negative Urine Cocaine Screen Negative U Marijuana (THC) Screen Negative Urine pH Normal Urine Specific [place] Normal Ur Creatinine Normal Assessment & Plan Assessment and plan (1) CVA (cerebral vascular accident): Status: Acute (2) Essential hypertension: Status: Acute (3) Mixed hyperlipidemia: Status: Acute (4) Type 2 diabetes mellitus with microalbuminuria, without long-term current use of insulin: Status: Acute (5) Generalized anxiety disorder: Status: Acute (6) Idiopathic pulmonary fibrosis: Status: Acute Assessment & Plan narrative: CVA - likely Rt MCA / RIGGER [place] territory - ASA, statin - MRI pending - echocardiogram pending - telemetry monitoring - lipid panel, A1C, TSH pending - permissive HTN - PT, OT, ST evaluation HTN - home Norvasc on hold - permissive HTN - prn hydralazine for SBP > 180 NIDDMT2 - recent A1Cs < 7 - diet controlled - SS, CCD, A1C pending Mixed HLD - lipid panel pending - statin PADMINI / Depression / Insomnia - mirtazapine, lorazepam, melatonin Hypothyroidism - levothyroxine - TSH pending Idiopathic Pulmonary Fibrosis - Pulmicort, albuterol DVT prophylaxis - Lovenox Time-Based Coding :: [TOTAL MINUTES] spent with patient and on the chart (including review of chart, obtaining history, exam, reviewing outside data, placing orders, documenting exam and treatment plan, and counseling patient) on [DATE].
[2024-07-21] MEDS: LEVOTHYROXINE 88 MCG TABLET PO (05:47)
[2024-07-21 07:22] LABS: Add Manual Diff / Slide Review NO; Basophils Absolute Auto 100 /uL (0-100); Basophils Percent Auto 0.6 % (0-2); Eosinophils Absolute Auto 400 /uL (0-450); Eosinophils Percent Auto 3.5 % (2-4); Hematocrit 44.1 % (36-46); Lymphocytes Absolute Auto 1800 /uL (1100-4500); Lymphocytes Percent Auto 17.7 % (25-40); Mean Corpuscular Hemoglobin 31.5 PG (26-34); Mean Corpuscular Volume 92.7 fL (80-100); Monocytes Absolute Auto 1000 /uL (0-900); Monocytes Percent Auto 9.4 % (3-14); Neutrophils Absolute Auto 7100 /uL (1500-7000); Neutrophils Percent Auto 68.8 % (50-75); Platelet Count 251 X10^3/uL (150-400); Red Blood Cell Count 4.75 X10^6/uL (4.0-5.2); Red Cell Distribution Width 13.3 % (11.6-14.8); White Blood Cell Count 10.3 X10^3/uL (4.5-11.0)
[2024-07-21 07:34] LABS: BUN Creatinine Ratio 19.6 (6-22); Blood Urea Nitrogen 18 mg/dL (7-17); Calcium 9.2 mg/dL (8.4-10.2); Carbon Dioxide 24 mmol/L (22-32); Chloride 107 mmol/L (98-107); Cholesterol 167 mg/dL (140-199); Estimated Glomerular Filt Rate > 60 mL/min (>60); Glucose 122 mg/dL (80-110); HDL Cholesterol 41 mg/dL (40-60); HEMOLYSIS < 15 (0-50); LDL Cholesterol Calculated 97 mg/dL (<100); Potassium 4.2 mmol/L (3.4-5.1); Sodium 139 mmol/L (137-145); Triglycerides 147 mg/dL (35-150)
[2024-07-21 07:38] LABS: Hemoglobin A1C% w Est Avg Glu 5.6 % (4.0-6.0)
--- NOTE | 2024-07-21 07:41 | PM.HP.1 ---
History of Present Illness History of Present Illness Date Patient Seen: 07/21/24 Chief complaint: sent from PCP office for CT scan Narrative: From night doctor: 79 y/o with PMH of HTN, idiopathic pulmonary fibrosis, mixed HLD, diet-controlled DM, anxiety, presented to ER with left leg and left arm weakness. It started yesterday. Her leg felt heavy and she dropped couple of objects from left hand. CTH and CTA non-revealing, only age-related atrophy. Denies swallowing difficulties, palpitations, chest pain, numbness, headache. BP in the ED elevated. S: She feels that she was mild weakness in the left arm and leg. She was able to walk. 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 She denies a headache, difficulty speaking, or affected speech. MRI does confirm a right thalamic infarct. [facility] Medical History Idiopathic pulmonary fibrosis Chronic cough Generalized anxiety disorder Type 2 diabetes mellitus with microalbuminuria, without long-term current use of insulin Abnormal mammogram Allergic rhinitis Obesity Osteopenia after menopause Hereditary and idiopathic neuropathy, unspecified History of colon polyps Mixed hyperlipidemia Essential hypertension Wears glasses Hearing loss (~2019) Interstitial lung disease Hayfever (1969) Kidney tumor (benign) (08/11/09) Colon polyps (1999) BCC (basal cell carcinoma of skin) (1994) History of colonic polyps (01/30/17) Mixed hyperlipidemia (03/29/15) Essential hypertension (03/29/15) Acquired hypothyroidism (03/29/15) Surgical History History of hip surgery (~08/2009) Anesthesia History of hysteroscopy Status post colonoscopy History of nephrectomy (08/11/09) History of cataract removal with insertion of prosthetic lens (2004) Family History Brother No problems noted. Father Lung cancer Mother Uterine cancer Social History marital status: number of children: 2 household members: spouse lives independently: Yes caregiver/support person: No housing: house Smoking Status: Never smoker second hand exposure: No alcohol intake: former substance use type: does not use Meds Home Medications and Allergies Home Medications Medication Instructions Recorded Confirmed Type cholecalciferol (vitamin D3) 50 2,000 unit PO QDAY ##0 01/04/13 07/21/24 History mcg (2,000 unit) capsule (Vitamin D3) flaxseed oil 1,000 mg capsule 1,000 mg PO DAILY 07/29/23 07/21/24 History multivitamin 1 tab PO DAILY 07/29/23 07/21/24 History levothyroxine 88 mcg tablet 88 mcg PO DAILY #90 tabs 09/30/23 07/21/24 Rx atorvastatin 20 mg tablet (Lipitor) 20 mg PO HS #90 tabs 11/04/23 07/21/24 Rx amlodipine 5 mg tablet 5 mg PO DAILY #90 tabs 01/16/24 07/21/24 Rx melatonin 10 mg capsule 10 mg PO BEDTIME PRN Insomnia 02/01/24 07/21/24 History mirtazapine 15 mg tablet 15 mg PO BEDTIME #90 tabs 05/25/24 07/21/24 Rx budesonide-formoterol HFA 160 2 puff inhalation BID #10.2 grams 06/23/24 07/21/24 Rx mcg-4.5 mcg/actuation aerosol inhaler (Symbicort) spacer #1 ea 06/23/24 07/21/24 Rx lorazepam 0.5 mg tablet 0.5 mg PO BID PRN Anxiety 07/21/24 07/21/24 History Allergies Allergy/AdvReac Type Severity Reaction Status Date / Time adhesive tape Allergy Mild SKIN Verified 06/23/24 12:54 IRRITATION bacitracin [BACITRACIN] Allergy Mild REDNESS Verified 06/23/24 12:54 Review of Systems Review of Systems Narrative: All else reviewed and otherwise unremarkable except as noted in the history and physical. Exam Vital Signs (past 8 hours): - 07/20/24 23:51 07/21/24 00:00 07/21/24 04:00 Temperature 97.8 F 98.0 F Pulse Rate 83 77 Respiratory Rate 17 16 Blood Pressure 161/102 H 114/68 Pulse Oximetry 96 96 Oxygen Delivery Method Room Air Oxygen Flow Rate 0 0 Oxygen Delivery Method Room Air Oxygen Flow Rate 0 Narrative Exam Narrative: NAD, alert and oriented, fluent speech, calm. Normocephalic skull, EOMI, anicteric sclera, symmetric pupils. Oropharynx unremarkable, no droop. Neck supple, midline trachea, no adenopathy. Lungs clear, normal rate and effort. Heart regular, no murmur gallop or rub. Abdomen is soft, non distended and non tender. Extremities are free of edema. Skin is free of rash or lesions. Joints are not swollen or deformed. Judgment appears to be normal. Very mild weakness of left arm and leg. She can walk on the leg and does not have a foot drop. She was able to folder seamer automatic a cup and lift her arm at the elbow and shoulder. Objective ECG Impression: Sinus rhythm with premature atrial complexes Left axis deviation Moderate voltage criteria for LVH, may be normal variant ( R in aVL , [place] product ) Imaging Multiple studies:: Radiologist's impression: Head CT: No acute intracranial pathology. Age related volume loss and [id number] white matter small vessel chronic ischemic changes. Head and neck CTA: No significant intracranial arterial abnormality is seen. Approximately 50% stenosis of the left proximal ICA. Otherwise, no significant abnormality is seen within the arteries of the neck. Enlarged mediastinal and hilar lymph nodes. Significant pulmonary fibrotic changes, better evaluated on prior high-resolution CT chest 06/14/2024. MRI Brain: Acute right thalamic lacunar infarct. No intracranial hemorrhage. Mild, diffuse cerebral volume loss. Moderate periventricular and subcortical white matter chronic microvascular ischemic changes. Labs 07/21/24 07:06 07/21/24 07:06 Labs: Laboratory Results - last 24 hr 07/20/24 07/20/24 07/21/24 15:22 17:59 07:06 WBC 10.5 10.3 RBC 4.77 4.75 Hgb 15.0 15.0 Hct 44.2 44.1 MCV 92.6 92.7 MCH 31.5 31.5 MCHC 34.0 34.0 RDW 13.0 13.3 Plt Count 248 251 Neut % (Auto) 76.1 H 68.8 Lymph % (Auto) 14.3 L 17.7 L [place] % (Auto) 7.6 9.4 Eos % (Auto) 1.7 L 3.5 Baso % (Auto) 0.3 0.6 Neut # (Auto) 8000 H 7100 H Lymph # (Auto) 1500 1800 [place] # (Auto) 800 1000 H Eos # (Auto) 200 400 Baso # (Auto) 0 100 PT 11.4 INR 1.0 APTT 36 Sodium 141 139 Potassium 4.2 4.2 Chloride 106 107 Carbon Dioxide 25 24 BUN 20 H 18 H Creatinine 0.93 0.92 Estimated GFR > 60 > 60 BUN/Creatinine Ratio 21.5 19.6 Glucose 136 H 122 H Hemoglobin A1c 5.6 Calcium 9.6 9.2 Magnesium 1.9 Total Bilirubin 0.6 AST 39 H ALT 35 H Alkaline Phosphatase 75 Total Creatine Kinase 54 Troponin I < 0.012 Total Protein 9.5 H Albumin 4.5 Globulin 5.0 H Albumin/Globulin Ratio 0.9 L Triglycerides 147 Cholesterol 167 LDL Cholesterol, Calc 97 HDL Cholesterol 41 Urine RBC None seen Urine WBC 10-30/hpf H Ur Squamous Epith Cells None seen Urine Bacteria Many (>30) H Ur Culture Indicated? Specimen cultured Vol Urine Centrifuged 10ml (spun) U Opiates 300ng/mL cut Negative Ur Oxycodone Screen Negative Urine Methadone Screen Negative Ur Barbiturates Screen Negative U Tricyclic Antidepress Negative Ur Phencyclidine Scrn Negative Ur Amphetamines Screen Negative U Methamphetamines Scrn Negative Ur MDMA Scrn (Ecstasy) Negative U Benzodiazepines Scrn Negative Urine Cocaine Screen Negative U Marijuana (THC) Screen Negative Urine pH Normal Urine Specific [place] Normal Ur Creatinine Normal Assessment & Plan Assessment & Plan narrative: CVA (thalamic strome, right), present on admission and active. - ASA, statin (high dose) - MRI pending - echocardiogram pending - telemetry monitoring - lipid panel, A1C, TSH pending - permissive HTN - PT, OT, ST evaluation HTN, present on admission and active. - home Norvasc on hold - permissive HTN - prn hydralazine for SBP > 180 NIDDMT2, present on admission and stable. - recent A1Cs < 7 - diet controlled - SS, CCD, A1C pending Mixed HLD, present on admission and stable. - lipid panel pending - statin PADMINI / Depression / Insomnia, stable. - mirtazapine, lorazepam, melatonin Hypothyroidism stable. - levothyroxine - TSH pending Idiopathic Pulmonary Fibrosis stable. - Pulmicort, albuterol RU: 07/22, decliens facility @ discharge. DVT prophylaxis - Lovenox Time-Based Coding :: 35 min spent with patient and on the chart (including review of chart, obtaining history, exam, reviewing outside data, placing orders, documenting exam and treatment plan, and counseling patient) on 07/21. Quality MIPS - Admit I confirm the patient?s Advance Care Plan is present, Code status is documented, Surrogate decision maker is in patient?s record [If Yes, STOP here]: Yes MIPS - Meds 'Current medications' to include all prescriptions, [id number] products, herbals, cannabis/cannabidiol products, and vitamin/mineral/dietary (nutritional) supplements. I have utilized all available resources to obtain, update, or review the patient?s current medications. [If Yes, STOP here]: Yes
[2024-07-21] MEDS: BUDESONIDE 0.5 MG/2 ML NEB INH ×2 (08:34→19:05)
[2024-07-21] MEDS: ASPIRIN EC 81 MG TABLET PO (09:31)
[2024-07-21] MEDS: ENOXAPARIN 40 MG/0.4 ML SYRINGE SUBCUT (09:31)
[2024-07-21] MEDS: cefTRIAXone 1,000 MG in SODIUM CHLORIDE 0.9% 100 ML 200 MG IV (10:25)
--- NOTE | 2024-07-21 10:40 | ST.IPCSEOM ---
Visit Care Team Role Provider Type Dorian Villa MD Primary Care Provider Physician Specialty: Internal Medicine Address: [address] [place] [address], [id number] Email: [email or web address] Magaly Armenta DO Emergency Provider Physician Referring Provider Specialty: Emergency Medicine Address: [address] [place] [address] Email: [email or web address] Stuart Templeton MD Admit Provider Physician Attending Provider Specialty: Internal Medicine Address: [address] [place] [address], [facility] Email: [email or web address] Diagnoses Type 2 diabetes mellitus with other diabetic kidney complication (07/20/24) Mixed hyperlipidemia (07/20/24) Generalized anxiety disorder (07/20/24) Essential (primary) hypertension (07/20/24) Cerebral infarction, unspecified (07/20/24) Idiopathic pulmonary fibrosis (07/20/24) Proteinuria, unspecified (07/20/24) Past Medical History (Last Reviewed 07/21/24 @ 07:42 by John Chu MD) Abnormal mammogram (Medical) Acquired hypothyroidism (Medical 03/29/15) Allergic rhinitis (Medical) BCC (basal cell carcinoma of skin) (Medical 1994) Nose Chronic cough (Medical) Colon polyps (Medical 1999) Essential hypertension (Medical 03/29/15) Essential hypertension (Medical) Generalized anxiety disorder (Medical) Hayfever (Medical 1969) Hearing loss (Medical ~2019) Hearing aids Hereditary and idiopathic neuropathy, unspecified (Medical) History of colon polyps (Medical) History of colonic polyps (Medical 01/30/17) Tubular adenomas, 2010 Idiopathic pulmonary fibrosis (Medical) Interstitial lung disease (Medical) Kidney tumor (benign) (Medical 08/11/09) Mixed hyperlipidemia (Medical 03/29/15) Mixed hyperlipidemia (Medical) Obesity (Medical) Osteopenia after menopause (Medical) Type 2 diabetes mellitus with microalbuminuria, without long-term current use of insulin (Medical) Wears glasses (Medical) Speech-Language Pathology Swallow Evaluation [employer] Clinical Swallow Evaluation Start: 07/21/24 10:35 Freq: Status: Active Protocol: Document 07/21/24 10:35 TEODORO (Rec: 07/21/24 10:40 MA [id number]) Clinical Swallow Evaluation Session Time Visit Start Time 09:50 Visit Stop Time 10:10 Total Visit Minutes [address] Templeton Reason for Referral possible CVA Setting Assessment Location Acute Care Visit Type Note Type Initial evaluation Patient Information Identification Type Name,Wristband History Per H&P: 79 y/o with PMH of HTN, idiopathic pulmonary fibrosis, mixed HLD, diet- controlled DM, anxiety, presented to ER with left leg and left arm weakness. It started yesterday. Her leg felt heavy and she dropped couple of objects from left hand. CTH and CTA non- revealing, only age-related atrophy. Denies swallowing difficulties, palpitations, chest pain, numbness, headache . BP in the ED elevated. PMHx significant for: Idiopathic pulmonary fibrosis Chronic cough Generalized anxiety disorder Type 2 diabetes mellitus with microalbuminuria, without long -term current use of insulin Abnormal mammogram Allergic rhinitis Obesity Osteopenia after menopause Hereditary and idiopathic neuropathy, unspecified History of colon polyps Mixed hyperlipidemia Essential hypertension Wears glasses Hearing loss (~2019) Interstitial lung disease Hayfever (1969) Kidney tumor (benign) () Colon polyps (1999) BCC (basal cell carcinoma of skin) (1994) History of colonic polyps () Mixed hyperlipidemia (03/29/15 ) Essential hypertension () Acquired hypothyroidism (03/29) Pt referred for ST evaluation d/t possible CVA and to assess swallow function. Subjective Observations Pt sitting upright in bed with present. Pt Ox3. Pt denies any speech or swallowing difficulty. Nursing reports no observed swallowing difficulties. Reported by Patient/Caregiver Pain/Discomfort No Current Diet Regular (IDDSI 7) Baseline Feeding Method Independent in self-feeding The IDDSI Framework Protocol: IDDSI.1 Objective Assessment Mental Status Alert,Responsive,Cooperative Comment Oral motor exam revealed oral musculature strength and ROM WFL. Natural dentition good condition Food and Liquid Trials Position During Assessment Upright (90 degrees) Liquids Trialed Thin (IDDSI 0) Solid Trials Regular (IDDSI 7) Administration Type Straw,Self-feeding Oral Impairment Within functional limits Oral Phase Comments Pt consumed a alonso cracker and about 4 oz of thin water via straw. For water, Pt demonstrated adequate suction, good oral acceptance and containment. For solids Pt took adequate bite size with good rate, adequate mastication and bolus formation, timely ap transport . Pharyngeal Impairment Within functional limits Pharyngeal Phase Comments Pt with no overt s/s of aspiration, such as coughing or choking with all PO trials. Fatigue/Endurance Endurance WNL The IDDSI Framework Protocol: IDDSI.1 Findings Swallowing Function Within functional limits Severity of Swallow Impairment Within functional limits Prognosis Good Impact on Safety and Functioning No limitations Recommendations Instrumental Assessment No Swallowing Treatment No Recommended Solids Regular (IDDSI 7) Recommended Liquids Thin (IDDSI 0) Other Recommendations ST recommends IDDSI 7/IDDSI 0 with the below safe swallowing strategies. No therapy warranted at this time. Safety Precautions/Swallowing Remain upright (90 degrees) Recommendations during all oral intake,Small bites and sips when eating, Slow rate; swallow between bites,Alternate liquids and solids Medication Recommendations As Tolerated Discharge Recommendations Home Education Patient/Caregiver Education Described results of evaluation,Patient expressed understanding of evaluation
--- NOTE | 2024-07-21 11:25 | PT.IIE ---
Current Diagnoses Type 2 diabetes mellitus with other diabetic kidney complication (07/20/24) Mixed hyperlipidemia (07/20/24) Generalized anxiety disorder (07/20/24) Essential (primary) hypertension (07/20/24) Cerebral infarction, unspecified (07/20/24) Idiopathic pulmonary fibrosis (07/20/24) Proteinuria, unspecified (07/20/24) Surgical History (Last Reviewed 07/21/24 @ 07:42 by John Chu MD) Anesthesia History of cataract removal with insertion of prosthetic lens (2004) History of hip surgery (~08/2009) History of hysteroscopy History of nephrectomy (08/11/09) Status post colonoscopy Medical History (Last Reviewed 07/21/24 @ 07:42 by John Chu MD) Abnormal mammogram Acquired hypothyroidism (03/29/15) Allergic rhinitis BCC (basal cell carcinoma of skin) (1994) Chronic cough Colon polyps (1999) Essential hypertension (03/29/15) Essential hypertension Generalized anxiety disorder Hayfever (1969) Hearing loss (~2019) Hereditary and idiopathic neuropathy, unspecified History of colon polyps History of colonic polyps (01/30/17) Idiopathic pulmonary fibrosis Interstitial lung disease Kidney tumor (benign) (08/11/09) Mixed hyperlipidemia (03/29/15) Mixed hyperlipidemia Obesity Osteopenia after menopause Type 2 diabetes mellitus with microalbuminuria, without long-term current use of insulin Wears glasses Physical Therapy Inpatient Evaluation/Re-Eval M1 PT/OT-IP Prior Functional Status Start: 07/21/24 12:13 Freq: NEEDED Status: Active Protocol: Document 07/21/24 11:25 AB (Rec: 07/21/24 12:46 AB [id number]) Medical Review Prior Functional Status Medical History Reviewed Yes Communication able to make needs known Mobility and Gait pt stated that she was independent with all mobilities and ambulation without AD Social History Household Members spouse Living Arrangements House Number of Floors (Floors) Two Floors Number of Stairs To Enter/Railing? no steps to enter pt has 20 steps B rails to get to bedroom level but stated that she can stay on main level of the house if needed Home Environment High Toilet,Walk in Shower, Built-In Shower Seat Home Equipment Four Wheel Walker,Grab Bars In Shower M2 PT-IP Current Condition Start: 07/21/24 12:13 Freq: NEEDED Status: Active Protocol: Document 07/21/24 11:25 AB (Rec: 07/21/24 12:46 AB [id number]) Physical Therapy Current Condition Current Condition Evaluation Date 07/21/24 Treatment Diagnosis CVA; difficulty in walking Onset Date 07/20/24 M3 PT-IP Subjective Start: 07/21/24 12:13 Freq: NEEDED Status: Active Protocol: Document 07/21/24 11:25 AB (Rec: 07/21/24 12:46 AB [id number]) Subjective Physical Therapy Visit Type Type Initial Evaluation Visit Start Time 11:25 Visit Stop Time 11:55 Number of DEPARTMENTAL SECRETARY Visits 0 Physical Therapy Visit Comments Patient Comments agreeable to do PT M4 PT-IP Mobility and Gait Start: 07/21/24 12:13 Freq: NEEDED Status: Active Protocol: Document 07/21/24 11:25 AB (Rec: 07/21/24 12:46 AB [id number]) PT-Bed Mobility Assessment Supine to Sit Supine to Sit Standby Assistance PT-Transfer Assessment Sit to and From Stand Sit to and from Stand Contact Guard Assistance,1 Person Assistance,Use of Upper Extremities Equipment Transfer Assistive Device None,Gait Belt,Front Wheeled Walker Orthotic/Prosthetic Devices or Brace: No Transfer Ability Level of Assist Contact Guard Assistance, Minimal Assistance,1 Person Assistance,Use of Upper Extremities Comments Mobility Comments pt in bed and agreeable to do PT. spouse in room. obtained PLOF and home set up. pt completed supine to sit SBA. able to sit on EOB SBA. ambulated in room using FWW ~ 35ft SBA to CGA. pt initially requiring SBA but midway with ambulation requiring CGA due to increase unsteadiness and increase lateral leaning to the L. cued pt to pause and rebalance when becoming unsteady. Assessed ambulation without AD and completed ~ 30 ft CGA to min A. presents with unsteady gait and (+) LOB needing min A. pt really wanting to go home. agreed to do stairs. ambulated in the hallway using FWW CGA ~ 100 ft. LLE tends to cross midline and cued to correct. pt completed up/down steps using B rails CGA ascending min A descending. pt informed that she can stay on main level of the house and spouse can sleep upstairs. pt ambulated back to the room using FWW CGA and cues for safety. pt sat on EOB. informed pt regarding d/c plan of acute rehab vs home and pt wanting to go home. Left pt with OT. Gait Assessment Gait Gait Assistance Required: Standby Assistance,Contact Guard Assist,Minimum Assistance Distance (Feet) 100 Able to Maintain Weight Bearing Status Yes During Gait Assistive Devices Assistive Device Gait Belt,Front Wheeled Walker Orthotic/Prosthetic Devices or Brace: No Gait Deviations General Gait Pattern Decreased Stride Length, Decreased Feet Clearance, Lateral Trunk Lean Factors Limiting Gait Function Factors Limiting Gait Function Decreased Activity Tolerance, Decreased Strength,Poor Balance,Poor Safety Awareness Stair Climbing Assessment Evaluation Level of Assist On Stairs Contact Guard Assistance, Minimal Assistance Devices Stair Climbing Assistive Devices Left Railing,Right Railing Technique/Endurance Stair Climbing Direction Ascend and Descend Stair Climbing Technique Step to Step Number of Steps Climbed 3 Query Text: Stair Climbing Set # Repetitions (reps) 1 PT-Balance Assessment Sitting Balance and Reactions Static Sitting Balance Ability Normal Dynamic Sitting Balance Ability Good Standing Balance and Reactions Static Standing Balance Ability Fair Dynamic Standing Balance Ability Fair Device Used FWW M5 PT-IP Objective Assessments Start: 07/21/24 12:13 Freq: NEEDED Status: Active Protocol: Document 07/21/24 11:25 AB (Rec: 07/21/24 12:46 AB [id number]) Orientation Orientation/Cognition Level of Alertness Alert Orientation Name,Place,Situation Safety Awareness Decreased Safety Awareness Memory Description Short Term Impaired Gross Range of Motion Lower Extremity ROM Assessment Within Functional Limits Strength Lower Extremity Strength Assessment Left Impaired Hip 4-/5 Knee 4-/5 Sensation Assessment Sensation Gross Sensation WNL Muscle Tone Muscle Tone WNL Yes M6 PT-IP Treatment Start: 07/21/24 12:13 Freq: NEEDED Status: Active Protocol: Document 07/21/24 11:25 AB (Rec: 07/21/24 12:46 AB [id number]) Physical Therapy Treatment Education Education Provided Safety M7 PT-IP Assessment and Plan Start: 07/21/24 12:13 Freq: NEEDED Status: Active Protocol: Document 07/21/24 11:25 AB (Rec: 07/21/24 12:46 AB [id number]) PT Summary Assessment and Plan Potential Rehabilitation Potential Fair Status of Condition at Evaluation Evolving Summary Impairments Pain,ROM,Strength,Balance, Coordination,Sensation,Tone, Cognition,Bed Mobility, Transfers,Gait,Activity Tolerance Assessment Summary pt is an 79 y/o F who is admitted for CVA with L sided weakness. pt requiring SBA to CGA for ambulation using a FWW but requires CGA to min A for ambulation without AD. pt lives with spouse and pt stated that spouse will be able to assist her. pt refused to go to acute rehab and wants to go home. pt will need outpt PT. Goals Bed Mobility Goal Independent Transfer Goal Independent,Front Wheeled Walker Gait Goal Independent,Front Wheel Walker Gait Distance 300 Other Goals improve transfers and ambulation without AD 250 ft mod I up/down 20 steps B rails SBA Days to Meet Goals 10 Frequency of Treatment Frequency Of Treatment Once a Day Treatment Plan Physical Therapy Treatment Plan Bed Mobility Training,Transfer Training,Gait Training, Therapeutic Exercise,Balance Retraining,Discharge Planning, Hot or Cold Pack,Neuromuscular Re-ed,Coordination Retraining ,Manual Therapy Precautions Other Precautions falls Recommendations To Nursing Amount of Assist Needed 1 Person Assist Discharge Recommendations PT Discharge Recommendations Home with Assistance,Acute Rehab,Outpatient PT,Home vs SNF Transportation Needs at Discharge Private Vehicle
--- NOTE | 2024-07-21 12:11 | OT.IP.EVAL ---
Current Diagnoses Type 2 diabetes mellitus with other diabetic kidney complication (07/20/24) Mixed hyperlipidemia (07/20/24) Generalized anxiety disorder (07/20/24) Essential (primary) hypertension (07/20/24) Cerebral infarction, unspecified (07/20/24) Idiopathic pulmonary fibrosis (07/20/24) Proteinuria, unspecified (07/20/24) Past Medical History (Last Reviewed 07/21/24 @ 07:42 by John Chu MD) Abnormal mammogram Acquired hypothyroidism (03/29/15) Allergic rhinitis BCC (basal cell carcinoma of skin) (1994) Chronic cough Colon polyps (1999) Essential hypertension (03/29/15) Essential hypertension Generalized anxiety disorder Hayfever (1969) Hearing loss (~2019) Hereditary and idiopathic neuropathy, unspecified History of colon polyps History of colonic polyps (01/30/17) Idiopathic pulmonary fibrosis Interstitial lung disease Kidney tumor (benign) (08/11/09) Mixed hyperlipidemia (03/29/15) Mixed hyperlipidemia Obesity Osteopenia after menopause Type 2 diabetes mellitus with microalbuminuria, without long-term current use of insulin Wears glasses Surgical History (Last Reviewed 07/21/24 @ 07:42 by John Chu MD) Anesthesia History of cataract removal with insertion of prosthetic lens (2004) History of hip surgery (~08/2009) History of hysteroscopy History of nephrectomy (08/11/09) Status post colonoscopy Occupational Therapy Inpatient Evaluation/Re-Eval M1 PT/OT-IP Prior Functional Status Start: 07/21/24 12:13 Freq: NEEDED Status: Active Protocol: Document 07/21/24 15:31 CGR (Rec: 07/21/24 15:49 CGR [id number]) Medical Review Prior Functional Status Medical History Reviewed Yes Communication able to make needs known Mobility and Gait pt stated that she was independent with all mobilities and ambulation without AD Activities of Daily Living and IADL's Pt states that she was IND in all ADLs and IADLs Social History Household Members spouse Living Arrangements House Number of Floors (Floors) Two Floors Number of Stairs To Enter/Railing? no steps to enter pt has 20 steps B rails to get to bedroom level but stated that she can stay on main level of the house if needed Home Environment High Toilet,Walk in Shower, Built-In Shower Seat Home Equipment Four Wheel Walker,Grab Bars In Shower Employment Status Retired M2 OT-IP Current Condition Start: 07/21/24 15:30 Freq: Status: Active Protocol: Document 07/21/24 15:31 CGR (Rec: 07/21/24 15:49 CGR [id number]) Occupational Therapy Current Condition Current Condition Evaluation Date 07/21/24 Treatment Diagnosis L sided weakness, R MCA CVA Diagnosis Onset Date 07/20/24 M3 OT- IP Subjective and Pain Start: 07/21/24 15:30 Freq: Status: Active Protocol: Document 07/21/24 15:31 CGR (Rec: 07/21/24 15:49 CGR [id number]) OT- Subjective Occupational Therapy Visit Type Type Initial Evaluation Visit Start Time 11:47 Visit Stop Time 12:11 Notes Upon first attempt, pt getting IV antibiotics and per nursing to please see once drip is done as pt's IV isn't ideal and there was concern for losing IV if pt is up and moving around. Second attempt, P.T. enters and request to work with patient. Pt finishing up with P.T. on thrid attempt. OT Pain Assessment Pain When Pain Assessed At Rest Pain Present Pain Present Denied Pain M4 OT- IP ADL's Start: 07/21/24 15:30 Freq: Status: Active Protocol: Document 07/21/24 15:31 CGR (Rec: 07/21/24 15:49 CGR [id number]) OT [id number] General Evaluation Self-Feeding Ability Independent Comments OT Self-Feeding Comments Pt feeds with IND at end of session. OT ADL-Grooming General Evaluation Grooming Ability Standby Assistance Areas Needing Assistance Retrieving/Set-up of Grooming Items,Face Washing Comments OT Grooming Comments standing at sink OT ADL-Oral Care General Eval Oral Care Ability Standby Assistance Areas of Assistance Brushing Teeth Comments Oral Care Comments standing at sink OT ADL-Dressing General Eval Lower Body Dressing Ability Independent Areas Needing Assistance Socks Comments OT Dressing Comments pt doffed and donned socks seated EOB OT ADL-Toileting General Evaluation Toileting Ability Standby Assistance Areas Needing Assistance Manage Clothing,Perform Perineal Hygiene Comments OT Toileting Comments Pt sat on toielt for urination and changed her underwear liner seated on toilet with extra time. OT ADL-Bathing Comments OT Bathing Comments not performed M5 OT- IP IADL's Start: 07/21/24 15:30 Freq: Status: Active Protocol: Document 07/21/24 15:31 CGR (Rec: 07/21/24 15:49 CGR [id number]) OT-Instrumental Activities of Daily Living Deficits IADL Deficits Identified No Deficits Home Safety Awareness Awareness of Need for Assistance at Home Good Awareness Ability to Problem Solve Emergency Able to Problem Solve Situations Medication Management Medication Management No Deficits Identified Money Management Money Management No Deficits Identified Meal Preparation Meal Preparation Caregiver Provides Assist Tray Room Worker Tray Room Worker Caregiver Provides Assist M6 OT- IP Functional Cognition Start: 07/21/24 15:30 Freq: Status: Active Protocol: Document 07/21/24 15:31 CGR (Rec: 07/21/24 15:49 CGR [id number]) Cognitive Factors Limiting Selfcare Function Cognitive Ability Level of Alertness Alert Patient Orientation Name,Age,Birthday,Month,Date, Year,Day of Week,Place, Situation Attention Span Ability Capable of Focused Attention, Capable of Sustained Attention Ability to Follow Commands Able to Follow One Step Commands with Increased Time, Able to Follow One Step Commands with Repetition Cognitive Comments Cognitive Assessment Comments Pt appears to be at her baseline OT- Vision and Hearing OT- Hearing Assessment OT- Hearing Assessment Hearing Impaired,Use of Hearing Aids OT- Vision Assessment Visual Acuity Glasses All The Time Visual Attentiveness WFL Occular Pursuits WFL Visual Convergence WFL Visual Velazquez WFL M7 OT- IP Mobility and Balance Start: 07/21/24 15:30 Freq: Status: Active Protocol: Document 07/21/24 15:31 CGR (Rec: 07/21/24 15:49 CGR [id number]) OT-Transfer Assessment Sit to and From Stand Sit to and from Stand Contact Guard Assistance Transfers Transfer Ability Contact Guard Assistance Technique Transfer Destination Bed,Chair,Toilet Transfer Technique Stand Step Pivot Devices Transfer Assistive Devices Gait Belt,Front Wheeled Walker Comments Mobility Comments Pt with CGA and just finished ambulating with P.T. Pt's L foot tends to drift medially and provide a smaller base of support with ambulating and on occation sissors. OT- Gait Assessment Gait Gait Assistance Required: Contact Guard Assist Assistive Devices Assistive Device Gait Belt,Front Wheeled Walker OT- Balance Assessment Sitting Balance and Reactions Static Sitting Balance Ability Normal Dynamic Sitting Balance Ability Normal M8 OT- IP Objective Assessments Start: 07/21/24 15:30 Freq: Status: Active Protocol: Document 07/21/24 15:31 CGR (Rec: 07/21/24 15:49 CGR [id number]) OT Gross Range of Motion Upper Extremity Range of Motion Assessment Within Functional Limits OT Strength Upper Extremity Strength Assessment Left Impaired Comments Strength Comments LUE 4+/5 RUE 5/5 OT- Coordination Assessment Upper Extremity Finger to Nose Test Within Functional Limits Finger Tapping Test Within Functional Limits Comments Coordination Comments LUE is WFL but not consistient with her R side OT Sensation Assessment Comments Summary Comments Pt states sensation is normal Edema Edema Absent M9 OT- IP Assessment and Plan Start: 07/21/24 15:30 Freq: Status: Active Protocol: Document 07/21/24 15:31 CGR (Rec: 07/21/24 15:49 CGR [id number]) OT Summary Assessment and Plan Potential Rehabilitation Potential Excellent Analytic Complexity at Evaluation Moderate Summary OT Impairments Strength,Balance,Coordination, Functional Mobility,Grooming, Dressing,Toileting,Bathing, Toilet Transfers,Shower Transfers,Activity Tolerance Progress Towards Goals Progressing Toward Goals Assessment Summary Pt presents as a moderate complexity evaluation s/p admit for L sided weakness and found to have R MCA infarct. Pt is appropriate for short stay with acute rehab but declines to go and prefers to return home with outpatient therapy. Pt will continue to benefit from therapy services. Goals Grooming Goal Independent Dressing Goal Independent Toileting Goal Independent Bathing Goal Independent Toilet Transfer Goal Independent Shower Transfer Goal Independent Days to Meet Goals 15 Frequency of Treatment Other frequency 5x per week Treatment Plan OT Treatment Plan ADL Training,Functional Mobility,Patient/Family Education,Discharge Planning Other Treatment Recommendations and Next LUE activities, home safety, Treatment Focus shower Discharge Recommendations OT Discharge Recommendations Home with Assistance Home Equipment Needs 2ww, toilet heightner with arm rails Transportation Needs at Discharge Private Vehicle
--- NOTE | 2024-07-21 14:51 | CM.DANOTE ---
Injitial DCP Assessment Visit Note Reviewed EMR and team rounds for status updates. Met with pt at bedside to introduce self and role, pt was found to be alert/oriented, comfortable, sitting up in the recliner relaxing. Pt lives modified independently in her own home with spouse here in [place]. Her will transport her home. Payor: [facility] PCP: Dr. Villa Pt is a 79 year-old F with a hx of pulmonary fibrosis, diabetes, hyperlipidemia, hupertension, and hypthyroid was sent to the ED from her PCP visit after she presented with L-foot dragging, L-hand weakness, and depth perception concerns. No further deficits noted. CT had/brain was negative for abnormalities, however her MRI/brain was positive for an acute right thalamic lucular infarct. DCP will continue to follow and assist with final recommendations, however pt is very close already to her baseline. Discharge Planning/Care Management CM Discharge Assessment Start: 07/21/24 14:47 Freq: Status: Active Protocol: Document 07/21/24 14:47 DPL (Rec: 07/21/24 14:51 DPL [id number]) Discharge Planning Assessment Assigned Travel Journalist TOBIN Roman Advance Directives? Yes Advance Directives on File Yes History Provided By Patient,Medical Record Expected Length of Stay 1 Has Patient been admitted in last 30 No days? Prior Living Arrangements House Household Members spouse Type of transporation used prior to Drives own vehicle admit Independent with ADL's Yes Is patient alert and oriented? Yes DME Already Rented / Owned Bath Bench,Elevated Toilet Seat,FWW / Walker Patient/Family Preference OP PT Therapy Barriers to Discharge No Discharge Plan Home Transportation Arrangement Spouse bedside and can provide transport at d/c. Whiteboard Updated in Patient Room with Yes name and ext. # of Travel Journalist Review Status In Process Please Provide Date Initial DC 07/21/24 Assessment Was Performed
[2024-07-21] MEDS: ACETAMINOPHEN 325 MG TABLET 650 MG PO (16:11)
[2024-07-21] MEDS: ATORVASTATIN 20 MG TABLET PO (20:06)
[2024-07-22] VITALS: BP 125/73; PULSE 69; RESP 18; TEMP 36.2; O2SAT 98
[2024-07-22 04:00] VITALS: BP 124/76; PULSE 81; RESP 17; TEMP 35.7; O2SAT 97
[2024-07-22] MEDS: LEVOTHYROXINE 88 MCG TABLET PO (05:09)
[2024-07-22 08:00] VITALS: BP 120/95; PULSE 73; RESP 14; TEMP 36.7; O2SAT 95
[2024-07-22] MEDS: ENOXAPARIN 40 MG/0.4 ML SYRINGE SUBCUT (09:41)
[2024-07-22] MEDS: ASPIRIN EC 81 MG TABLET PO (09:41)
[2024-07-22 09:46] VITALS: PULSE 80; RESP 16; O2SAT 98
[2024-07-22] MEDS: BUDESONIDE 0.5 MG/2 ML NEB INH (09:46)
[2024-07-22] MEDS: cefTRIAXone 1,000 MG in SODIUM CHLORIDE 0.9% 100 ML 200 MG IV (09:49)
--- NOTE | 2024-07-22 10:36 | PT.IPTN ---
Current Diagnoses Type 2 diabetes mellitus with other diabetic kidney complication (07/20/24) Mixed hyperlipidemia (07/20/24) Generalized anxiety disorder (07/20/24) Essential (primary) hypertension (07/20/24) Cerebral infarction, unspecified (07/20/24) Idiopathic pulmonary fibrosis (07/20/24) Proteinuria, unspecified (07/20/24) Physical Therapy Treatment Note M2 PT-IP Current Condition Start: 07/21/24 12:13 Freq: NEEDED Status: Active Protocol: Document 07/21/24 11:25 AB (Rec: 07/21/24 12:46 AB [id number]) Physical Therapy Current Condition Current Condition Evaluation Date 07/21/24 Treatment Diagnosis CVA; difficulty in walking Onset Date 07/20/24 M3 PT-IP Subjective Start: 07/21/24 12:13 Freq: NEEDED Status: Active Protocol: Document 07/22/24 10:15 MB (Rec: 07/22/24 10:36 MB [id number]) Subjective Physical Therapy Visit Type Type Treatment Note Visit Start Time 10:15 Visit Stop Time 10:25 Number of EDUCATIONAL CONSULTANT Visits 0 Physical Therapy Visit Comments Patient Comments Pt is agreeable to PT and states that she wants to go home. M4 PT-IP Mobility and Gait Start: 07/21/24 12:13 Freq: NEEDED Status: Active Protocol: Document 07/22/24 10:15 MB (Rec: 07/22/24 10:36 MB [id number]) PT-Transfer Assessment Sit to and From Stand Sit to and from Stand Standby Assistance,Use of Upper Extremities Equipment Transfer Assistive Device Gait Belt,Front Wheeled Walker Orthotic/Prosthetic Devices or Brace: No Transfers Transfer Destination Chair Transfer Technique Ambulation Transfer Ability Level of Assist Standby Assistance,1 Person Assistance,Use of Upper Extremities Comments Mobility Comments Cues to push up from the chair , PT raises RW, spouse nearby for treatment, pt with some impulsivity and decreased awareness to right side with walking, walking with walker close to EOB on the way back Gait Assessment Gait Gait Assistance Required: Standby Assistance,1 Person Assist Distance (Feet) 100 Able to Maintain Weight Bearing Status Yes During Gait Assistive Devices Assistive Device Gait Belt,Front Wheeled Walker Orthotic/Prosthetic Devices or Brace: No Gait Deviations General Gait Pattern Decreased Stride Length,Wide Based Gait Factors Limiting Gait Function Factors Limiting Gait Function Poor Balance,Poor Safety Awareness Comments Gait Comments 100'x2 with RW Stair Climbing Assessment Evaluation Level of Assist On Stairs Contact Guard Assistance Devices Stair Climbing Assistive Devices Left Railing,Right Railing Technique/Endurance Stair Climbing Direction Ascend and Descend Stair Climbing Technique Step Over Step Number of Steps Climbed 3 Stair Climbing Set # Repetitions (reps) 3 PT-Balance Assessment Sitting Balance and Reactions Static Sitting Balance Ability Normal Dynamic Sitting Balance Ability Good Standing Balance and Reactions Static Standing Balance Ability Good Dynamic Standing Balance Ability Good Device Used RW M5 PT-IP Objective Assessments Start: 07/21/24 12:13 Freq: NEEDED Status: Active Protocol: Document 07/21/24 11:25 AB (Rec: 07/21/24 12:46 AB [id number]) Orientation Orientation/Cognition Level of Alertness Alert Orientation Name,Place,Situation Safety Awareness Decreased Safety Awareness Memory Description Short Term Impaired Gross Range of Motion Lower Extremity ROM Assessment Within Functional Limits Strength Lower Extremity Strength Assessment Left Impaired Hip 4-/5 Knee 4-/5 Sensation Assessment Sensation Gross Sensation WNL Muscle Tone Muscle Tone WNL Yes M6 PT-IP Treatment Start: 07/21/24 12:13 Freq: NEEDED Status: Active Protocol: Document 07/22/24 10:15 MB (Rec: 07/22/24 10:36 MB [id number]) Physical Therapy Treatment Education Education Provided Safety Other Treatments Other Treatment Performed Ed pt on benefits of OPPT to work on balance and gait M7 PT-IP Assessment and Plan Start: 07/21/24 12:13 Freq: NEEDED Status: Active Protocol: Document 07/22/24 10:15 MB (Rec: 07/22/24 10:36 MB [id number]) PT Summary Assessment and Plan Potential Rehabilitation Potential Good Status of Condition at Evaluation Evolving Summary Impairments ROM,Strength,Balance, Coordination,Transfers,Gait Progress Towards Goals Progressing Toward Goals Assessment Summary Pt progresses towards transfer , gait and step goals. Pt states that she wants to go home today. Ed pt on benefits of OPPT, safety awareness with hand placement with transfers , watching where she is walking with gait and benefits of RW currently. Pt with redness posterior neck and PT spoke with nsg who to check pt . No further acute PT needs, d /c PT and recommend up with SBA. Spouse to assist and transfer pt and he is present. Frequency of Treatment Frequency Of Treatment Discharge Precautions Other Precautions Impulsivity, falls Recommendations To Nursing Amount of Assist Needed Standby Assistance Discharge Recommendations PT Discharge Recommendations Home with Assistance, Outpatient PT Transportation Needs at Discharge Private Vehicle
--- NOTE | 2024-07-22 10:45 | PM.DS.1 ---
History of Present Illness History of Present Illness Chief complaint: sent from PCP office for CT scan Narrative: From night doctor: 79 y/o with PMH of HTN, idiopathic pulmonary fibrosis, mixed HLD, diet-controlled DM, anxiety, presented to ER with left leg and left arm weakness. It started yesterday. Her leg felt heavy and she dropped couple of objects from left hand. CTH and CTA non-revealing, only age-related atrophy. Denies swallowing difficulties, palpitations, chest pain, numbness, headache. BP in the ED elevated. S: She feels that she was mild weakness in the left arm and leg. She was able to walk. She was able to mechanic a cup with her left hand. She denies a headache, difficulty speaking, or affected speech. MRI does confirm a right thalamic infarct. Discharge Providers Provider Date of admission: 07/20/24 23:29 Discharge Date: 07/22/24 Primary care physician: Dorian Villa MD Consults: 07/21/24 01:38 Consult to Occupational Therapy Evaluate & Treat Comment: Physician Instructions: Evaluate and treat Consult to Physical Therapy Evaluate & Treat Comment: Physician Instructions: Evaluate and Treat Consult to Speech Therapy Evaluate & Treat Comment: Physician Instructions: Evaluate and treat Discharge provider: John Chu MD Summary Hospital Course Discharge Diagnosis: 1. CVA (thalamic stroke, right), present on admission and active. 2. HTN, present on admission and active. 3. NIDDMT2, present on admission and stable. 4. Mixed HLD, present on admission and stable. 5. PADMINI / Depression / Insomnia, stable. - mirtazapine, lorazepam, melatonin 6. Hypothyroidism stable. 7. Idiopathic Pulmonary Fibrosis stable. - Pulmicort, albuterol Hospital Course: She was admitted with left arm and leg weakness consistent with acute stroke. Her initial CTA and CT head were unremarkable. MRI did reveal a right thalamic stroke. She would good improvement of her symptoms and was evaluated by physical and occupational therapy. She was felt to be able to discharge home where she was as walker at all times and to continue outpatient physical therapy. She will be given dual antiplatelet therapy for 21 days, followed by aspirin monotherapy. She declines taking chronic aspirin. Her atorvastatin will be increased from 20-80 mg. PCP within a week. She was urged to call 911 for acute stroke symptoms in the future. A1c 5.6 TSH 1.00 LDL 97 HDL 41 Chol 167 BP 120/95 Exam Vital Signs (past 8 hours): - 07/22/24 04:00 07/22/24 08:00 07/22/24 09:46 Temperature 96.3 F L 98.0 F Pulse Rate 81 73 80 Respiratory Rate 17 14 16 Blood Pressure 124/76 120/95 H Pulse Oximetry 97 95 98 Oxygen Delivery Method Room Air Oxygen Flow Rate 0 0 Fraction of Inspired Oxygen 21 SaO2/FiO2 Ratio 447 Oxygen Delivery Method Room Air Oxygen Flow Rate 0 Objective ECG Impression: ntervals [place] Rate: 81 P: 0 UT: 158 QRS: -39 QRSD: 82 T: 6 QT: 360 QTc: 418 Interpretive Statements Sinus rhythm with premature atrial complexes Left axis deviation Moderate voltage criteria for LVH, may be normal variant ( R in aVL , [place] product ) NO SIGNIFICANT CHANGE FROM PRIOR TRACING Imaging Multiple studies:: Radiologist's impression: CT brain: No acute intracranial pathology. Age related volume loss and [id number] white matter small vessel chronic ischemic changes. CTA head and neck: No significant intracranial arterial abnormality is seen. Approximately 50% stenosis of the left proximal ICA. Otherwise, no significant abnormality is seen within the arteries of the neck. Enlarged mediastinal and hilar lymph nodes. Significant pulmonary fibrotic changes, better evaluated on prior high-resolution CT chest 06/14/2024. Echo: he ejection fraction is estimated to be 55-60%. Grade II diastolic dysfunction. The left atrium is mildly dilated. Injection of contrast documented no interatrial shunt. The right ventricle is normal in size and function. There is mild mitral regurgitation. There is mild tricuspid regurgitation. Pulmonary artery pressures cannot be estimated because of the lack of a measurable TR jet velocity but the IVC suggests a CVP of around 3 mmHg. Compared to the prior study 10/16/2017, there is no evidence of a PFO by color Doppler or agitated saline contrast on the current study as suggested by color Doppler previously. MRI brain: Acute right thalamic lacunar infarct. No intracranial hemorrhage. Mild, diffuse cerebral volume loss. Moderate periventricular and subcortical white matter chronic microvascular ischemic changes. Labs 07/21/24 07:06 07/21/24 07:06 [facility] Medical History Idiopathic pulmonary fibrosis Chronic cough Generalized anxiety disorder Type 2 diabetes mellitus with microalbuminuria, without long-term current use of insulin Abnormal mammogram Allergic rhinitis Obesity Osteopenia after menopause Hereditary and idiopathic neuropathy, unspecified History of colon polyps Mixed hyperlipidemia Essential hypertension Wears glasses Hearing loss (~2019) Interstitial lung disease Hayfever (1969) Kidney tumor (benign) (08/11/09) Colon polyps (1999) BCC (basal cell carcinoma of skin) (1994) History of colonic polyps (01/30/17) Mixed hyperlipidemia (03/29/15) Essential hypertension (03/29/15) Acquired hypothyroidism (03/29/15) Surgical History History of hip surgery (~08/2009) Anesthesia History of hysteroscopy Status post colonoscopy History of nephrectomy (08/11/09) History of cataract removal with insertion of prosthetic lens (2004) Family History Brother No problems noted. Father Lung cancer Mother Uterine cancer Social History marital status: number of children: 2 household members: spouse lives independently: Yes caregiver/support person: No housing: house Smoking Status: Never smoker second hand exposure: No alcohol intake: former substance use type: does not use Discharge Assessment & Plan Assessment and Plan Assessment: 1. CVA (thalamic stroke, right), present on admission and active. 2. HTN, present on admission and active. 3. NIDDMT2, present on admission and stable. 4. Mixed HLD, present on admission and stable. 5. PADMINI / Depression / Insomnia, stable. - mirtazapine, lorazepam, melatonin 6. Hypothyroidism stable. 7. Idiopathic Pulmonary Fibrosis stable. Plan of Treatment: Discharge home on dual antiplatelet therapy for 21 days and increased statin to 80 mg a day. Primary care within a week, 911 for acute stroke symptoms. Discharge Plan Discharge Plan Patient Disposition: Home Provider Discharge Comment: Stable for discharge home, we will be on dual antiplatelet therapy for 21 days and then aspirin monotherapy and her statin will be increased to high dose. Discharge orders & Medications Prescriptions: New aspirin 81 mg Tablet,Delayed Release (Dr/Ec) 81 mg PO DAILY Qty: 30 11RF clopidogrel [Plavix] 75 mg tablet 75 mg PO DAILY Qty: 20 0RF atorvastatin 80 mg tablet 80 mg PO BEDTIME Qty: 30 11RF Continued melatonin 10 mg capsule 10 mg PO BEDTIME PRN (Reason: Insomnia) cholecalciferol (vitamin D3) [Vitamin D3] 2,000 UNIT capsule 2,000 unit PO QDAY Qty: 0 levothyroxine 88 mcg tablet 88 mcg PO DAILY Qty: 90 3RF amlodipine 5 mg tablet 5 mg PO DAILY Qty: 90 3RF mirtazapine 15 mg tablet 15 mg PO BEDTIME Qty: 90 3RF multivitamin Tablet 1 tab PO DAILY flaxseed oil 1,000 mg capsule 1,000 mg PO DAILY Rx Instructions: administer with a meal lorazepam 0.5 mg tablet 0.5 mg PO BID PRN (Reason: Anxiety) Rx Instructions: No longer taking budesonide-formoterol [Symbicort] 160-4.5 mcg/actuation HFA aerosol inhaler 2 puff inhalation BID Qty: 10.2 3RF (DME) spacer See Rx Instructions .ROUTE .MEDSUPPLY Qty: 1 0RF Rx Instructions: As directed, use with inhaler. Discontinued atorvastatin [Lipitor] 20 mg tablet 20 mg PO HS Qty: 90 3RF Medication counseling provided by Pharmacist: No Follow up/Referrals: Dorian Villa MD [Primary Care Provider] - Discharge Health Status Multidrug resistant organism: No MDRO Diet/Activity/Treatments Diet: Low-fat Activity: As tolerated, Outpatient Physical Therapy. Visit Report/Discharge Packet Stand Alone Forms: Patient Portal/API, Stroke Signs & Symptoms Discharge Data Primary Care Provider: Dorian Villa V
--- NOTE | 2024-07-22 11:19 | CM.DPC ---
DCP Discharge Home Per MD, pt medically stable to discharge today and pt and spouse confirm their preference is home and want outpt PT and decline Acute Rehab. No identified barriers to discharge. Per PT today, pt able to ambulate with SBA and CG training completed with spouse bedside and recommend home with assist and outpt PT. Per RN, discharge instructions provided and no concerns noted. TOBIN Rogel
[2024-07-22] MEDS: CLOPIDOGREL 75 MG TABLET PO (11:23)
--- NOTE | 2024-07-22 12:37 | PC.NURSE ---
Patient is A&OX4, VSS, afebrile on RA. NIH 0. She denies LEWIS, SOB, CP, dizziness. NSR on telemetry. She is cleared by PT this a.m. and plans on discharging home with out patient PT. She verbalizes understanding of discharge medications, PT, follow up with PCP as well as returning s/sx of stroke to return to ED. She is escorted via w/ch by RN to private vehicle for discharge home today at 1140 a.m.
== END 2024-07-22 11:40 | disposition home or self-care (01) | DRG 65 ==
LOC: ED 23:24 → AC 23:29
PROVIDERS: Emergency Medicine; Admitting Provider Internal Medicine; Emergency Provider Emergency Medicine; PCP Internal Medicine; Referring Provider Emergency Medicine; Visit Provider Internal Medicine
DX: I63.89 Other cerebral infarction (principal); G81.94 Hemiplegia, unspecified affecting left nondominant side; J84.112 Idiopathic pulmonary fibrosis; I10 Essential (primary) hypertension; E78.2 Mixed hyperlipidemia; F41.1 Generalized anxiety disorder; E03.9 Hypothyroidism, unspecified; F32.A Depression, unspecified; R29.701 NIHSS score 1; R29.700 NIHSS score 0; G47.00 Insomnia, unspecified; R80.9 Proteinuria, unspecified; E11.69 Type 2 diabetes mellitus with other specified complication; Z79.890 Hormone replacement therapy
CPT/HCPCS: 36415; 70450; 70496; 70498; 70551; 71045; 80048; 80053; 80061; 80305; 81003; 81015; 82550; 82962; 83036; 83735; 84443; 84484; 85025; 85610; 85730; 87077; 87086; 87186; 92610; 93005; 93010; 93306; 94640; 97116; 97162; 97166; 97535; 99285; J0696; J1650; Q9967

== ENCOUNTER 2024-09-01 09:00 | Outpatient (RCR) | payer MEDICARE, SELFPAY ==
[2024-07-20 23:51] VITALS: BMI 23.5
--- NOTE | 2024-08-04 16:27 | PT.OIE ---
Current Diagnoses Cerebral infarction, unspecified (08/04/24) Weakness (08/04/24) Past Medical History (Last Updated 07/28/24 @ 10:46 by Dorian iVlla MD) Abnormal mammogram Acquired hypothyroidism (03/29/15) Allergic rhinitis BCC (basal cell carcinoma of skin) (1994) Cerebrovascular disease Chronic cough Colon polyps (1999) Essential hypertension (03/29/15) Essential hypertension Generalized anxiety disorder Hayfever (1969) Hearing loss (~2019) Hereditary and idiopathic neuropathy, unspecified History of colon polyps History of colonic polyps (01/30/17) Idiopathic pulmonary fibrosis Interstitial lung disease Kidney tumor (benign) (08/11/09) Mixed hyperlipidemia (03/29/15) Mixed hyperlipidemia Obesity Osteopenia after menopause Type 2 diabetes mellitus with microalbuminuria, without long-term current use of insulin Wears glasses Past Surgical History (Last Reviewed 07/28/24 @ 10:40 by Dorian Villa MD) Anesthesia History of cataract removal with insertion of prosthetic lens (2004) History of hip surgery (~08/2009) History of hysteroscopy History of nephrectomy (08/11/09) Status post colonoscopy Visit Care Team Role Provider Type Dorian Villa MD Attending Provider Physician Family Provider Primary Care Provider Referring Provider Specialty: Internal Medicine Address: [address] [place] [address], [facility] Email: [email or web address] Physical Therapy Initial Evaluation PT-OP-A Visit Information Start: 08/03/24 13:04 Freq: Status: Active Protocol: Document 08/04/24 08:56 MB (Rec: 08/04/24 09:32 MB [id number]) Out-Patient Physical Therapy Visit Information Visit Information Visit Type Initial Evaluation Visit Note [facility] Visit Start Time 08:56 Visit Stop Time 09:26 Visit Number 1 Number of ENROBING MACHINE CORDER Visits 0 Evaluation Information Evaluation Date 08/04/24 PT-OP-B Current Condition Start: 08/03/24 13:04 Freq: Status: Active Protocol: Document 08/04/24 08:56 MB (Rec: 08/04/24 09:32 MB [id number]) Current Condition History of Current Condition Onset Date 07/19/24 Current Complaints Pt feels better now History of Current Condition Pt thinks that she had her stroke on 07/19/24. She noticed dropping things in the left hand, missing objects and having to think about picking up her left leg. Pt lives with . She is back to driving and does not report visual changes. PMH includes: pulmonary fibrosis, HTN, hyperlipidemia, DM and hypothyroidism. Pt denies speech changes and she does have a few mis-naming of things during assessment, first states she dropped things with her right hand and then dropped things with her left hand. Some slurred/speech changes noted by PT. Pt [place] and has two hearing aides. Pt denies alcohol intake and states she drinks one cup of coffee in the morning Pt has no pain anywhere and she is sleeping well. She denies dizziness and light- headedenss. She denies falls and uses her walker at night if she gets up to pee. She doesn't have as much energy and wonders if that is the stroke. Prior Treatments and Tests MRI brain 07/21/24: IMPRESSION: Acute right thalamic lacunar infarct. No intracranial hemorrhage. Mild, diffuse cerebral volume loss. Moderate periventricular and subcortical white matter chronic microvascular ischemic changes. Treatment Goals Patient/Caregiver Goals Just to get through assessment and see if she needs PT. Pt would like some exercises to work on her balance. PT-OP-C Subjective Start: 08/03/24 13:04 Freq: Status: Active Protocol: Document 08/04/24 08:56 MB (Rec: 08/04/24 09:32 MB [id number]) OP-PT Subjective Patient Comments Patient Comments See history of current condition Patient Questionnaires Other Questionnaire Name and Score FES score is 17/64, reflecting low concerns for falling. Pt may tend to under-report. PT-OP-D Balance Start: 08/03/24 13:04 Freq: Status: Active Protocol: Document 08/04/24 08:56 MB (Rec: 08/04/24 16:27 MB [id number]) Balance Tests Romberg Romberg Romberg EO and EC WNLs, self- limits tandem B and SLS Other Other Balance Tests Performed FGA reflects increased risk for falling with score 18/30 and LOB with attempting tandem walking and stepping over step and pt is unable to complete any tandem walking. More shuffling of left foot with more challenging gait tasks. SLS right 5 sec and left 2 sec PT-OP-G Mobility & Gait Start: 08/03/24 13:04 Freq: Status: Active Protocol: Document 08/04/24 08:56 MB (Rec: 08/04/24 16:27 MB [id number]) OP Gait Assessment Comments Gait Comments Very slight weakness and decreased DF left ankle with mild whip motion with advancing left foot today and she has incresaed drag of left foot with harder balance tasks on FGA PT-OP-H Neuro Start: 08/03/24 13:04 Freq: Status: Active Protocol: Document 08/04/24 08:56 MB (Rec: 08/04/24 09:32 MB [id number]) Coordination Evaluation Upper Extremity Tests Left Finger to Nose Test Moderate Impairment Pronation/Supination Test Moderate Impairment Right Finger to Nose Test Minimal Impairment Pronation/Supination Test Minimal Impairment Lower Extremity Tests Left Heel on Parra Test Moderate Impairment Right Heel on Parra Test Minimal Impairment Comments Coordination Comments Toe tapping over opposite foot with min impairment on right and mod impairment on left Vital Signs Comments Vital Signs Comments Orthostatic assessment with BP and HR in LUE: supine: 138/72 , 83; standin/67, 96; standing 1' 130/68, 94. PT-OP-J Posture/Palpation/Skin Start: 08/03/24 13:04 Freq: Status: Active Protocol: Document 08/04/24 08:56 MB (Rec: 08/04/24 09:32 MB [id number]) Skin Assessment Other Assessments Skin Assessment Comments Pt with mild droop left side of mouth PT-OP-M Strength Start: 08/03/24 13:04 Freq: Status: Active Protocol: Document 08/04/24 08:56 MB (Rec: 08/04/24 16:27 MB [id number]) Shoulder Strength Shoulder Manual Muscle Testing Left Flexion 5 Normal Abduction (C5) 4+ Good+ Right Flexion 5 Normal Abduction (C5) 5 Normal Elbow/Forearm Strength Elbow and Forearm Manual Muscle Testing Left Flexion (C6) 4+ Good+ Extension (C7) 4+ Good+ Supination 4+ Good+ Right Flexion (C6) 5 Normal Extension (C7) 5 Normal Supination 5 Normal Hip Strength Hip Manual Muscle Testing Left Flexion (L2) 4+ Good+ Right Flexion (L2) 5 Normal Knee Strength Knee Manual Muscle Testing Left Flexion (S2) 4+ Good+ Extension (L3) 4+ Good+ Right Flexion (S2) 5 Normal Extension (L3) 5 Normal Ankle/Foot Strength Ankle and Foot Manual Muscle Testing Left Dorsiflexion (L4) 4+ Good+ Right Dorsiflexion (L4) 5 Normal Toe Strength Toe Manual Muscle Testing Left Great Toe Extension 4+ Good+ Right Great Toe Extension 5 Normal PT-OP-T Assessment and Plan Start: 08/03/24 13:04 Freq: Status: Active Protocol: Document 08/04/24 08:56 MB (Rec: 08/04/24 16:27 MB [id number]) Physical Therapy Assessment Rehab Potential Rehabilitation Potential Good Evaluation Complexity Number of Personal Factors/Comorbidities 1-2 Number of Body Systems Impaired 3 Clinical Presentation at Evaluation Evolving Impairments Impairments Balance,Coordination, Functional Activities, Functional Mobility,Gait, Posture,Strength Goals 4 Impairment Lack fo HEP Correction Goal (LTG) Pt will perform progressive HEP with I including balance, LE strength and coordination tasks to improve c/o perceptual deficits and ability to perform ADLs. LTG Duration 6 weeks 3 Impairment Weakness in left leg Correction Goal (LTG) Pt will perform at least 9 reps STS in 30 sec to reflect improved functional strength in legs. LTG Duration 6 weeks 2 Impairment Evidence of imbalance Correction Goal (LTG) Pt will perform TUG in no more than 10 sec to improve balance with transfers and short gait. LTG Duration 6 weeks 1 Impairment FGA score 18/30, indicating high risk for falls [employer] Consultant Goal (LTG) Pt will present with FGA score WNLs to decrease fall risk. LTG Duration 6 weeks Assessment Summary Assessment Pt is an 79 y/o female presenting s/p right thalamic stroke that she thinks occurred on 07/19/24. Pt reports perception challenges using left hand and having to think to move left leg well. On eval date, pt tends to under-report or minimize symptoms on Falls Efficacy Scale. She presents with mild droop of left mouth, some trouble finding words and answering questions correctly and mild slurred speech but she denies any trouble with thinking and speaking. She presents with mild right extremity and moderate left extremity dysmetria with coordination testing, mild scuffing of left foot with harder gait balance tasks and LOB with some FGA tasks and complete inability to perform tandem walking. She also self- limits static balance tasks this date. Initially, pt is apprehensive about need OPPT and at the end of assessment, she verbalizes desire for balance and coordination exercises to perform at home. PT ed pt that OT could better address LUE dysmetria but she declines this and so PT will add in 1-2 UE coordination tasks for home program. Pt will benefit from PT to improve balance, coordination and LLE strength. Physical Therapy Plan Frequency and Duration Frequency of Treatment 2x/Week Duration of treatment (weeks) 6 Plan of Care Start Date 08/04/24 Plan of Care End Date 09/15/24 Therapeutic Interventions Therapeutic Interventions Balance Training,Canalithic Repositioning,Coordination Training,Gait Training,Home Exercise Program,Joint Mobilizations,Manual Therapy, Neuromuscular Re-education, Patient/Caregiver Education, Self-Care/Home Management,Soft Tissue Mobilization,Taping, Therapeutic Activities, Therapeutic Exercises, Vestibular Rehabilitation Modalities Cold Pack/Ice Massage,Electric Stimulation,Hot Packs, Ultrasound Next Visit Focus/Plan Next Note Type Treatment Note Next Visit Plan Initiate FGA tasks for home, then [place], then consider UE coordination exercise such as finger to nose or other task such as tapping near, next and far and back in different orders, teaching a hand jive that she can do at home with , check covergence/ Edouard string given c/o perception issues
--- NOTE | 2024-08-11 08:58 | PT.OTN ---
Current Diagnoses Cerebral infarction, unspecified (08/11/24) Weakness (08/11/24) Physical Therapy Treatment Note PT-OP-A Visit Information Start: 08/03/24 13:04 Freq: Status: Active Protocol: Document 08/11/24 08:16 MB (Rec: 08/11/24 08:57 MB [id number]) Out-Patient Physical Therapy Visit Information Visit Information Visit Type Treatment Note Visit Note [facility] with 6 approved per eval Visit Start Time 08:16 Visit Stop Time 08:56 Visit Number 2 Number of NEWS SPECIALIST Visits 0 Evaluation Information Evaluation Date 08/04/24 PT-OP-B Current Condition Start: 08/03/24 13:04 Freq: Status: Active Protocol: Document 08/04/24 08:56 MB (Rec: 08/04/24 09:32 MB [id number]) Current Condition History of Current Condition Onset Date 07/19/24 Current Complaints Pt feels better now History of Current Condition Pt thinks that she had her stroke on 07/19/24. She noticed dropping things in the left hand, missing objects and having to think about picking up her left leg. Pt lives with . She is back to driving and does not report visual changes. PMH includes: pulmonary fibrosis, HTN, hyperlipidemia, DM and hypothyroidism. Pt denies speech changes and she does have a few mis-naming of things during assessment, first states she dropped things with her right hand and then dropped things with her left hand. Some slurred/speech changes noted by PT. [place] and has two hearing aides. Pt denies alcohol intake and states she drinks one cup of coffee in the morning Pt has no pain anywhere and she is sleeping well. She denies dizziness and light- headedenss. She denies falls and uses her walker at night if she gets up to pee. She doesn't have as much energy and wonders if that is the stroke. Prior Treatments and Tests MRI brain 07/21/24: IMPRESSION: Acute right thalamic lacunar infarct. No intracranial hemorrhage. Mild, diffuse cerebral volume loss. Moderate periventricular and subcortical white matter chronic microvascular ischemic changes. Treatment Goals Patient/Caregiver Goals Just to get through assessment and see if she needs PT. Pt would like some exercises to work on her balance. PT-OP-C Subjective Start: 08/03/24 13:04 Freq: Status: Active Protocol: Document 08/11/24 08:16 MB (Rec: 08/11/24 08:57 MB [id number]) OP-PT Subjective Patient Comments Patient Comments Pt has no new reports. She is having lunch with friends today. PT-OP-D Balance Start: 08/03/24 13:04 Freq: Status: Active Protocol: Document 08/04/24 08:56 MB (Rec: 08/04/24 16:27 MB [id number]) Balance Tests Romberg Romberg Romberg EO and EC WNLs, self- limits tandem B and SLS Other Other Balance Tests Performed FGA reflects increased risk for falling with score 18/30 and LOB with attempting tandem walking and stepping over step and pt is unable to complete any tandem walking. More shuffling of left foot with more challenging gait tasks. SLS right 5 sec and left 2 sec PT-OP-G Mobility & Gait Start: 08/03/24 13:04 Freq: Status: Active Protocol: Document 08/04/24 08:56 MB (Rec: 08/04/24 16:27 MB [id number]) OP Gait Assessment Comments Gait Comments Very slight weakness and decreased DF left ankle with mild whip motion with advancing left foot today and she has incresaed drag of left foot with harder balance tasks on FGA PT-OP-H Neuro Start: 08/03/24 13:04 Freq: Status: Active Protocol: Document 08/04/24 08:56 MB (Rec: 08/04/24 09:32 MB [id number]) Coordination Evaluation Upper Extremity Tests Left Finger to Nose Test Moderate Impairment Pronation/Supination Test Moderate Impairment Right Finger to Nose Test Minimal Impairment Pronation/Supination Test Minimal Impairment Lower Extremity Tests Left Heel on Parra Test Moderate Impairment Right Heel on Parra Test Minimal Impairment Comments Coordination Comments Toe tapping over opposite foot with min impairment on right and mod impairment on left Vital Signs Comments Vital Signs Comments Orthostatic assessment with BP and HR in LUE: supine: 138/72 , 83; standin/67, 96; standing 1' 130/68, 94. PT-OP-J Posture/Palpation/Skin Start: 08/03/24 13:04 Freq: Status: Active Protocol: Document 08/04/24 08:56 MB (Rec: 08/04/24 09:32 MB [id number]) Skin Assessment Other Assessments Skin Assessment Comments Pt with mild droop left side of mouth PT-OP-M Strength Start: 08/03/24 13:04 Freq: Status: Active Protocol: Document 08/04/24 08:56 MB (Rec: 08/04/24 16:27 MB [id number]) Shoulder Strength Shoulder Manual Muscle Testing Left Flexion 5 Normal Abduction (C5) 4+ Good+ Right Flexion 5 Normal Abduction (C5) 5 Normal Elbow/Forearm Strength Elbow and Forearm Manual Muscle Testing Left Flexion (C6) 4+ Good+ Extension (C7) 4+ Good+ Supination 4+ Good+ Right Flexion (C6) 5 Normal Extension (C7) 5 Normal Supination 5 Normal Hip Strength Hip Manual Muscle Testing Left Flexion (L2) 4+ Good+ Right Flexion (L2) 5 Normal Knee Strength Knee Manual Muscle Testing Left Flexion (S2) 4+ Good+ Extension (L3) 4+ Good+ Right Flexion (S2) 5 Normal Extension (L3) 5 Normal Ankle/Foot Strength Ankle and Foot Manual Muscle Testing Left Dorsiflexion (L4) 4+ Good+ Right Dorsiflexion (L4) 5 Normal Toe Strength Toe Manual Muscle Testing Left Great Toe Extension 4+ Good+ Right Great Toe Extension 5 Normal PT-OP-Q Treatments Start: 08/03/24 13:04 Freq: Status: Active Protocol: Document 08/11/24 08:16 MB (Rec: 08/11/24 08:57 MB [id number]) Neuro Re-Education Treatment Balance Activities Fingr to letter with eye chart and pen Details HEP and handout Comments DVA eye chart on the wall, tapping letter with pen and then nose, working along top line of letters and alternating with lower opposite letter and this is challenging for pt with right and left hands, more on the right, and cognitively with moving between the letters and letter lines, slow movement and not always accurate in which letter to touch FGA activities for home Details HEP and handout Comments Pt performs 4 reps of the following and perform in a row sliding fingernail along the wall: 1-Forward walking and changing speed fast and slow, frequent left foot scuffing, especially at end of hallway length 2-Forward walking with right and left head turns, ongoing left foot scuffing occ 3-Forward walking with up and down head movements 4-Forward walking, eyes closed 5-Backward walking--pt does have trouble keeping that left foot clear, superv assistance 6-Tandem walking (Hallway shorter at home and so to perform 5 reps) Self-Care/Home Management Treatment Education Other Education Ed in benefits of AFO vs adjustable foot drop brace vs doing nothing for left foot scuff and pt agreeable to try adjustable foot brace, to order and PT provides handout, and then will assess scuffing with balance exercises in hallway and goal is to decrease fall risk PT-OP-T Assessment and Plan Start: 08/03/24 13:04 Freq: Status: Active Protocol: Document 08/11/24 08:16 MB (Rec: 08/11/24 08:57 MB [id number]) Physical Therapy Assessment Rehab Potential Rehabilitation Potential Good Evaluation Complexity Number of Personal Factors/Comorbidities 1-2 Number of Body Systems Impaired 3 Clinical Presentation at Evaluation Evolving Impairments Impairments Balance,Coordination, Functional Activities, Functional Mobility,Gait, Posture,Strength Goals 4 Impairment Lack fo HEP Programmer Business Goal (LTG) Pt will perform progressive HEP with I including balance, LE strength and coordination tasks to improve c/o perceptual deficits and ability to perform ADLs. LTG Duration 6 weeks 3 Impairment Weakness in left leg Chcf Goal (LTG) Pt will perform at least 9 reps STS in 30 sec to reflect improved functional strength in legs. LTG Duration 6 weeks 2 Impairment Evidence of imbalance Chcf Goal (LTG) Pt will perform TUG in no more than 10 sec to improve balance with transfers and short gait. LTG Duration 6 weeks 1 Impairment FGA score 18/30, indicating high risk for falls Programmer Business Goal (LTG) Pt will present with FGA score WNLs to decrease fall risk. LTG Duration 6 weeks Assessment Summary Assessment Initiated coordination and balance exercises for home today. Physical Therapy Plan Frequency and Duration Frequency of Treatment 2x/Week Duration of treatment (weeks) 6 Plan of Care Start Date 08/04/24 Plan of Care End Date 09/15/24 Therapeutic Interventions Therapeutic Interventions Balance Training,Canalithic Repositioning,Coordination Training,Gait Training,Home Exercise Program,Joint Mobilizations,Manual Therapy, Neuromuscular Re-education, Patient/Caregiver Education, Self-Care/Home Management,Soft Tissue Mobilization,Taping, Therapeutic Activities, Therapeutic Exercises, Vestibular Rehabilitation Modalities Cold Pack/Ice Massage,Electric Stimulation,Hot Packs, Ultrasound Next Visit Focus/Plan Next Note Type Treatment Note Next Visit Plan [place] Further UE coordination exercise such as teaching a hand jive that she can do at home with , check covergence/Edouard string given c/o perception issues, could consider adding metronome
--- NOTE | 2024-08-13 14:30 | PT.OTN ---
Current Diagnoses Cerebral infarction, unspecified (08/13/24) Weakness (08/13/24) Physical Therapy Treatment Note PT-OP-A Visit Information Start: 08/03/24 13:04 Freq: Status: Active Protocol: Document 08/13/24 13:48 SP (Rec: 08/13/24 14:35 SP [id number]) Out-Patient Physical Therapy Visit Information Visit Information Visit Type Treatment Note Visit Note [facility] with 6 approved per eval Visit Start Time 13:48 Visit Stop Time 14:30 Visit Number 3 Number of WELT SOLE LAYER Visits 1 Evaluation Information Evaluation Date 08/04/24 PT-OP-B Current Condition Start: 08/03/24 13:04 Freq: Status: Active Protocol: Document 08/04/24 08:56 MB (Rec: 08/04/24 09:32 MB [id number]) Current Condition History of Current Condition Onset Date 07/19/24 Current Complaints Pt feels better now History of Current Condition Pt thinks that she had her stroke on 07/19/24. She noticed dropping things in the left hand, missing objects and having to think about picking up her left leg. Pt lives with . She is back to driving and does not report visual changes. PMH includes: pulmonary fibrosis, HTN, hyperlipidemia, DM and hypothyroidism. Pt denies speech changes and she does have a few mis-naming of things during assessment, first states she dropped things with her right hand and then dropped things with her left hand. Some slurred/speech changes noted by PT. Pt [place] and has two hearing aides. Pt denies alcohol intake and states she drinks one cup of coffee in the morning Pt has no pain anywhere and she is sleeping well. She denies dizziness and light- headedenss. She denies falls and uses her walker at night if she gets up to pee. She doesn't have as much energy and wonders if that is the stroke. Prior Treatments and Tests MRI brain 07/21/24: IMPRESSION: Acute right thalamic lacunar infarct. No intracranial hemorrhage. Mild, diffuse cerebral volume loss. Moderate periventricular and subcortical white matter chronic microvascular ischemic changes. Treatment Goals Patient/Caregiver Goals Just to get through assessment and see if she needs PT. Pt would like some exercises to work on her balance. PT-OP-C Subjective Start: 08/03/24 13:04 Freq: Status: Active Protocol: Document 08/13/24 13:48 SP (Rec: 08/13/24 14:35 SP [id number]) OP-PT Subjective Patient Comments Patient Comments Pt arrives with HOs and L ankle DF strap. Reports is a challenge head turns. PT-OP-D Balance Start: 08/03/24 13:04 Freq: Status: Active Protocol: Document 08/04/24 08:56 MB (Rec: 08/04/24 16:27 MB [id number]) Balance Tests Romberg Romberg Romberg EO and EC WNLs, self- limits tandem B and SLS Other Other Balance Tests Performed FGA reflects increased risk for falling with score 18/30 and LOB with attempting tandem walking and stepping over step and pt is unable to complete any tandem walking. More shuffling of left foot with more challenging gait tasks. SLS right 5 sec and left 2 sec PT-OP-G Mobility & Gait Start: 08/03/24 13:04 Freq: Status: Active Protocol: Document 08/04/24 08:56 MB (Rec: 08/04/24 16:27 MB [id number]) OP Gait Assessment Comments Gait Comments Very slight weakness and decreased DF left ankle with mild whip motion with advancing left foot today and she has incresaed drag of left foot with harder balance tasks on FGA PT-OP-H Neuro Start: 08/03/24 13:04 Freq: Status: Active Protocol: Document 08/04/24 08:56 MB (Rec: 08/04/24 09:32 MB [id number]) Coordination Evaluation Upper Extremity Tests Left Finger to Nose Test Moderate Impairment Pronation/Supination Test Moderate Impairment Right Finger to Nose Test Minimal Impairment Pronation/Supination Test Minimal Impairment Lower Extremity Tests Left Heel on Parra Test Moderate Impairment Right Heel on Parra Test Minimal Impairment Comments Coordination Comments Toe tapping over opposite foot with min impairment on right and mod impairment on left Vital Signs Comments Vital Signs Comments Orthostatic assessment with BP and HR in LUE: supine: 138/72 , 83; standin/67, 96; standing 1' 130/68, 94. PT-OP-J Posture/Palpation/Skin Start: 08/03/24 13:04 Freq: Status: Active Protocol: Document 08/04/24 08:56 MB (Rec: 08/04/24 09:32 MB [id number]) Skin Assessment Other Assessments Skin Assessment Comments Pt with mild droop left side of mouth PT-OP-M Strength Start: 08/03/24 13:04 Freq: Status: Active Protocol: Document 08/04/24 08:56 MB (Rec: 08/04/24 16:27 MB [id number]) Shoulder Strength Shoulder Manual Muscle Testing Left Flexion 5 Normal Abduction (C5) 4+ Good+ Right Flexion 5 Normal Abduction (C5) 5 Normal Elbow/Forearm Strength Elbow and Forearm Manual Muscle Testing Left Flexion (C6) 4+ Good+ Extension (C7) 4+ Good+ Supination 4+ Good+ Right Flexion (C6) 5 Normal Extension (C7) 5 Normal Supination 5 Normal Hip Strength Hip Manual Muscle Testing Left Flexion (L2) 4+ Good+ Right Flexion (L2) 5 Normal Knee Strength Knee Manual Muscle Testing Left Flexion (S2) 4+ Good+ Extension (L3) 4+ Good+ Right Flexion (S2) 5 Normal Extension (L3) 5 Normal Ankle/Foot Strength Ankle and Foot Manual Muscle Testing Left Dorsiflexion (L4) 4+ Good+ Right Dorsiflexion (L4) 5 Normal Toe Strength Toe Manual Muscle Testing Left Great Toe Extension 4+ Good+ Right Great Toe Extension 5 Normal PT-OP-Q Treatments Start: 08/03/24 13:04 Freq: Status: Active Protocol: Document 08/13/24 13:48 SP (Rec: 08/13/24 14:35 SP [id number]) Therapeutic Exercises Sitting Exercises OTAGO STS Sitting Exercise Name added to HEP Resistance arms across chest Equipment Used mesh chair Reps/Minutes x10 Comments cued x1 control full sit OTAGO LAQ Sitting Exercise Name added to HEP Side bilateral Resistance AROM Reps/Minutes 30 alternating Comments cued softer return Standing Exercises OTAGO Hip Abduction Standing Exercise Name added to HEP Side bilateral Resistance AROM Equipment Used rail contact Reps/Minutes 30 reps alternating Comments cued not high OTAGO HS curl Standing Exercise Name added to HEP Side bilateral Resistance AROM Equipment Used rail contact support Reps/Minutes 30 alternating Comments cued control return Neuro Re-Education Treatment Balance Activities FGA activities for home Details reviewed with HO Surface Trialed 65 bpm backward, 90 fwd bpm metronome helped decreased foot scuff. Comments Pt performs 4 reps 20 ft of the following and perform in a row sliding fingerpad along the wall: 1-Forward walking and changing speed fast and slow, Less left foot but occasional R foot scuffing cued toes up, especially at end of hallway length, cued march step turning clearance, stop if unbalanced to reset. 2-Forward walking with right and left head turns, Improved less L foot scuffing, at times trunk viers, cued increase SANA 3-Forward walking with up and down head movements, R foot occ scuff, L catch end hallway , CGA recovery, cued toes up walking. 4-Forward walking, eyes closed , cued scap squeeze, increase SANA,toes up- better posture & foot clearance 5-Backward walking--cued toe contact 1st, higher step SBA- improved 65 bpm 6-Tandem walking (Hallway shorter at home and so to perform 5 reps)- cued shoulder blade squeeze toe up 1 foot front other, no medial ankle scuffing R on L. Self-Care/Home Management Treatment Education Patient Education Fall Risk,Safety Other Education Instruction with pt on proper donning of L ankle DF strap anchored ankle<>distal shoe laces, at ankle positioned neutral. DIscussed wear with gait exercises, out for walks and tasks that challenge balance reported . PT-OP-T Assessment and Plan Start: 08/03/24 13:04 Freq: Status: Active Protocol: Document 08/13/24 13:48 SP (Rec: 08/13/24 14:35 SP [id number]) Physical Therapy Assessment Goals 4 Impairment Lack fo HEP Bridge Maintainer Goal (LTG) Pt will perform progressive HEP with I including balance, LE strength and coordination tasks to improve c/o perceptual deficits and ability to perform ADLs. LTG Duration 6 weeks 3 Impairment Weakness in left leg Bridge Maintainer Goal (LTG) Pt will perform at least 9 reps STS in 30 sec to reflect improved functional strength in legs. LTG Duration 6 weeks 2 Impairment Evidence of imbalance Halfway Goal (LTG) Pt will perform TUG in no more than 10 sec to improve balance with transfers and short gait. LTG Duration 6 weeks 1 Impairment FGA score 18/30, indicating high risk for falls Bridge Maintainer Goal (LTG) Pt will present with FGA score WNLs to decrease fall risk. LTG Duration 6 weeks Assessment Summary Assessment Pt good understanding of how proper don ankle DF strap. Continues to demonstrate forefoot cuffing L>R during more challenge head turns/ vertical, cued still haveto be aware of DF clearance. Utilized metronome during tx with noted less scuffing frequency and decreased finger glide wall (in PT only). Didn 't add metronome to HEP, will continue utilze in PT for consistant safety. Good response to AROM OTAGO /c HEP HO. Physical Therapy Plan Frequency and Duration Frequency of Treatment 2x/Week Duration of treatment (weeks) 6 Plan of Care Start Date 08/04/24 Plan of Care End Date 09/15/24 Therapeutic Interventions Therapeutic Interventions Balance Training,Canalithic Repositioning,Coordination Training,Gait Training,Home Exercise Program,Joint Mobilizations,Manual Therapy, Neuromuscular Re-education, Patient/Caregiver Education, Self-Care/Home Management,Soft Tissue Mobilization,Taping, Therapeutic Activities, Therapeutic Exercises, Vestibular Rehabilitation Modalities Cold Pack/Ice Massage,Electric Stimulation,Hot Packs, Ultrasound Next Visit Focus/Plan Next Note Type Treatment Note Next Visit Plan Recheck AROM [place]: STS, LAQ, HS Curl, ABD. Future further with PT UE coordination exercise such as teaching a hand jive that she can do at home with , check covergence/Edouard string given c/o perception issues, could consider adding metronome
--- NOTE | 2024-08-23 08:59 | PT.OTN ---
Current Diagnoses Cerebral infarction, unspecified (08/23/24) Weakness (08/23/24) Physical Therapy Treatment Note PT-OP-A Visit Information Start: 08/03/24 13:04 Freq: Status: Active Protocol: Document 08/23/24 08:13 MB (Rec: 08/23/24 08:59 MB [id number]) Out-Patient Physical Therapy Visit Information Visit Information Visit Type Treatment Note Visit Note [facility] with 6 approved per eval Progress note by 09/01/24 Visit Start Time 08:13 Visit Stop Time 08:53 Visit Number 4 Number of POT FLUXER Visits 0 Evaluation Information Evaluation Date 08/04/24 PT-OP-B Current Condition Start: 08/03/24 13:04 Freq: Status: Active Protocol: Document 08/04/24 08:56 MB (Rec: 08/04/24 09:32 MB [id number]) Current Condition History of Current Condition Onset Date 07/19/24 Current Complaints Pt feels better now History of Current Condition Pt thinks that she had her stroke on 07/19/24. She noticed dropping things in the left hand, missing objects and having to think about picking up her left leg. Pt lives with . She is back to driving and does not report visual changes. PMH includes: pulmonary fibrosis, HTN, hyperlipidemia, DM and hypothyroidism. Pt denies speech changes and she does have a few mis-naming of things during assessment, first states she dropped things with her right hand and then dropped things with her left hand. Some slurred/speech changes noted by PT. Pt is [place] and has two hearing aides. Pt denies alcohol intake and states she drinks one cup of coffee in the morning Pt has no pain anywhere and she is sleeping well. She denies dizziness and light- headedenss. She denies falls and uses her walker at night if she gets up to pee. She doesn't have as much energy and wonders if that is the stroke. Prior Treatments and Tests MRI brain 07/21/24: IMPRESSION: Acute right thalamic lacunar infarct. No intracranial hemorrhage. Mild, diffuse cerebral volume loss. Moderate periventricular and subcortical white matter chronic microvascular ischemic changes. Treatment Goals Patient/Caregiver Goals Just to get through assessment and see if she needs PT. Pt would like some exercises to work on her balance. PT-OP-C Subjective Start: 08/03/24 13:04 Freq: Status: Active Protocol: Document 08/23/24 08:13 MB (Rec: 08/23/24 08:59 MB [id number]) OP-PT Subjective Patient Comments Patient Comments Pt states that she didn't wear the DF strap much except when she went outside. She thinks that her UE coordination exercise is going better. PT-OP-D Balance Start: 08/03/24 13:04 Freq: Status: Active Protocol: Document 08/04/24 08:56 MB (Rec: 08/04/24 16:27 MB [id number]) Balance Tests Romberg Romberg Romberg EO and EC WNLs, self- limits tandem B and SLS Other Other Balance Tests Performed FGA reflects increased risk for falling with score 18/30 and LOB with attempting tandem walking and stepping over step and pt is unable to complete any tandem walking. More shuffling of left foot with more challenging gait tasks. SLS right 5 sec and left 2 sec PT-OP-G Mobility & Gait Start: 08/03/24 13:04 Freq: Status: Active Protocol: Document 08/04/24 08:56 MB (Rec: 08/04/24 16:27 MB [id number]) OP Gait Assessment Comments Gait Comments Very slight weakness and decreased DF left ankle with mild whip motion with advancing left foot today and she has incresaed drag of left foot with harder balance tasks on FGA PT-OP-H Neuro Start: 08/03/24 13:04 Freq: Status: Active Protocol: Document 08/04/24 08:56 MB (Rec: 08/04/24 09:32 MB [id number]) Coordination Evaluation Upper Extremity Tests Left Finger to Nose Test Moderate Impairment Pronation/Supination Test Moderate Impairment Right Finger to Nose Test Minimal Impairment Pronation/Supination Test Minimal Impairment Lower Extremity Tests Left Heel on Parra Test Moderate Impairment Right Heel on Parra Test Minimal Impairment Comments Coordination Comments Toe tapping over opposite foot with min impairment on right and mod impairment on left Vital Signs Comments Vital Signs Comments Orthostatic assessment with BP and HR in LUE: supine: 138/72 , 83; standin/67, 96; standing 1' 130/68, 94. PT-OP-J Posture/Palpation/Skin Start: 08/03/24 13:04 Freq: Status: Active Protocol: Document 08/04/24 08:56 MB (Rec: 08/04/24 09:32 MB [id number]) Skin Assessment Other Assessments Skin Assessment Comments Pt with mild droop left side of mouth PT-OP-M Strength Start: 08/03/24 13:04 Freq: Status: Active Protocol: Document 08/04/24 08:56 MB (Rec: 08/04/24 16:27 MB [id number]) Shoulder Strength Shoulder Manual Muscle Testing Left Flexion 5 Normal Abduction (C5) 4+ Good+ Right Flexion 5 Normal Abduction (C5) 5 Normal Elbow/Forearm Strength Elbow and Forearm Manual Muscle Testing Left Flexion (C6) 4+ Good+ Extension (C7) 4+ Good+ Supination 4+ Good+ Right Flexion (C6) 5 Normal Extension (C7) 5 Normal Supination 5 Normal Hip Strength Hip Manual Muscle Testing Left Flexion (L2) 4+ Good+ Right Flexion (L2) 5 Normal Knee Strength Knee Manual Muscle Testing Left Flexion (S2) 4+ Good+ Extension (L3) 4+ Good+ Right Flexion (S2) 5 Normal Extension (L3) 5 Normal Ankle/Foot Strength Ankle and Foot Manual Muscle Testing Left Dorsiflexion (L4) 4+ Good+ Right Dorsiflexion (L4) 5 Normal Toe Strength Toe Manual Muscle Testing Left Great Toe Extension 4+ Good+ Right Great Toe Extension 5 Normal PT-OP-Q Treatments Start: 08/03/24 13:04 Freq: Status: Active Protocol: Document 08/23/24 08:13 MB (Rec: 08/23/24 08:59 MB [id number]) Therapeutic Exercises Sitting Exercises OTAGO STS Sitting Exercise Name Reviewed from [facility] Resistance arms across chest Equipment Used [place] chair Reps/Minutes 30 reps OTAGO LAQ Sitting Exercise Name Reviewed from HEP Side bilateral Resistance 2 lb ankle weights Reps/Minutes 30 alternating, 2 sets Standing Exercises [place] heel raises Standing Exercise Name Added to HEP Side bilateral Resistance 2 lb ankle weights Equipment Used rail contact Reps/Minutes 10 reps today and encouraged up to 30 at home Standing hip extension Standing Exercise Name Added to HEP Side bilateral Resistance 2 lb ankle weights Equipment Used rail contact Reps/Minutes 30 alternating reps, 2 sets OTAGO Hip Abduction Standing Exercise Name Reviewed from HEP Side bilateral Resistance 2 lb ankle weights Equipment Used rail contact Reps/Minutes 30 reps alternating, 2 sets OTAGO HS curl Standing Exercise Name Reviewed from HEP Side bilateral Resistance 2 lb ankle weights Equipment Used rail contact support Reps/Minutes 30 alternating, 2 sets Neuro Re-Education Treatment Balance Activities [place] toe walking Details HEP, 4 sets ot 10 steps at home Comments Less arm propulsion [place] heel walking Details HEP, 4 sets of 10 steps at home Comments Short and quick steps and heavy arm propulsion, 4 lengths today [place] tightrope backwards Details HEP, 4 sets of 10 steps at home Comments More challenging and slides hand along ballet bar [place] tightrope forward Details HEP, 4 sets of 10 steps at home Comments Good performance on carpet and next to ballet bar today, 2 lengths of 10 reps PT-OP-T Assessment and Plan Start: 08/03/24 13:04 Freq: Status: Active Protocol: Document 08/23/24 08:13 MB (Rec: 08/23/24 08:59 MB [id number]) Physical Therapy Assessment Rehab Potential Rehabilitation Potential Good Evaluation Complexity Number of Personal Factors/Comorbidities 1-2 Number of Body Systems Impaired 3 Clinical Presentation at Evaluation Evolving Impairments Impairments Balance,Coordination, Functional Activities, Functional Mobility,Gait, Posture,Strength Goals 4 Impairment Lack fo HEP [place] Stitcher Goal (LTG) Pt will perform progressive HEP with I including balance, LE strength and coordination tasks to improve c/o perceptual deficits and ability to perform ADLs. LTG Duration 6 weeks 3 Impairment Weakness in left leg [place] Stitcher Goal (LTG) Pt will perform at least 9 reps STS in 30 sec to reflect improved functional strength in legs. LTG Duration 6 weeks 2 Impairment Evidence of imbalance Jail Goal (LTG) Pt will perform TUG in no more than 10 sec to improve balance with transfers and short gait. LTG Duration 6 weeks 1 Impairment FGA score 18/30, indicating high risk for falls Jail Goal (LTG) Pt will present with FGA score WNLs to decrease fall risk. LTG Duration 6 weeks Assessment Summary Assessment Con't [place] progression and review today. Anticipate being able to finish up [place] next treatment and add in ankle exercises, d/c PT in 3 treatments. Physical Therapy Plan Frequency and Duration Frequency of Treatment 2x/Week Duration of treatment (weeks) 6 Plan of Care Start Date 08/04/24 Plan of Care End Date 09/15/24 Therapeutic Interventions Therapeutic Interventions Balance Training,Canalithic Repositioning,Coordination Training,Gait Training,Home Exercise Program,Joint Mobilizations,Manual Therapy, Neuromuscular Re-education, Patient/Caregiver Education, Self-Care/Home Management,Soft Tissue Mobilization,Taping, Therapeutic Activities, Therapeutic Exercises, Vestibular Rehabilitation Modalities Cold Pack/Ice Massage,Electric Stimulation,Hot Packs, Ultrasound Next Visit Focus/Plan Next Note Type Treatment Note Next Visit Plan Finish [place] with tightrope standing, SLS, squat behind chair, band looped around feet , ankle DF and eversion combo strengthening in sitting Future further with PT UE coordination exercise such as teaching a hand jive that she can do at home with , check covergence/Edouard string given c/o perception issues, ongoing metronome
--- NOTE | 2024-08-25 11:23 | PT.OTN ---
Current Diagnoses Cerebral infarction, unspecified (08/25/24) Weakness (08/25/24) Physical Therapy Treatment Note PT-OP-A Visit Information Start: 08/03/24 13:04 Freq: Status: Active Protocol: Document 08/25/24 10:38 MB (Rec: 08/25/24 11:23 MB [id number]) Out-Patient Physical Therapy Visit Information Visit Information Visit Type Treatment Note Visit Note [facility] with 6 approved per eval Progress note by 09/01/24 Visit Start Time 10:38 Visit Stop Time 11:18 Visit Number 5 Number of DYE BECK REEL OPERATOR Visits 0 Evaluation Information Evaluation Date 08/04/24 PT-OP-B Current Condition Start: 08/03/24 13:04 Freq: Status: Active Protocol: Document 08/04/24 08:56 MB (Rec: 08/04/24 09:32 MB [id number]) Current Condition History of Current Condition Onset Date 07/19/24 Current Complaints Pt feels better now History of Current Condition Pt thinks that she had her stroke on 07/19/24. She noticed dropping things in the left hand, missing objects and having to think about picking up her left leg. Pt lives with . She is back to driving and does not report visual changes. PMH includes: pulmonary fibrosis, HTN, hyperlipidemia, DM and hypothyroidism. Pt denies speech changes and she does have a few mis-naming of things during assessment, first states she dropped things with her right hand and then dropped things with her left hand. Some slurred/speech changes noted by PT. Pt is [place] and has two hearing aides. Pt denies alcohol intake and states she drinks one cup of coffee in the morning Pt has no pain anywhere and she is sleeping well. She denies dizziness and light- headedenss. She denies falls and uses her walker at night if she gets up to pee. She doesn't have as much energy and wonders if that is the stroke. Prior Treatments and Tests MRI brain 07/21/24: IMPRESSION: Acute right thalamic lacunar infarct. No intracranial hemorrhage. Mild, diffuse cerebral volume loss. Moderate periventricular and subcortical white matter chronic microvascular ischemic changes. Treatment Goals Patient/Caregiver Goals Just to get through assessment and see if she needs PT. Pt would like some exercises to work on her balance. PT-OP-C Subjective Start: 08/03/24 13:04 Freq: Status: Active Protocol: Document 08/25/24 10:38 MB (Rec: 08/25/24 11:23 MB [id number]) OP-PT Subjective Patient Comments Patient Comments Pt did not perform [place] exercises d/t her 2lb ankle weights just arrived. PT-OP-D Balance Start: 08/03/24 13:04 Freq: Status: Active Protocol: Document 08/04/24 08:56 MB (Rec: 08/04/24 16:27 MB [id number]) Balance Tests Romberg Romberg Romberg EO and EC WNLs, self- limits tandem B and SLS Other Other Balance Tests Performed FGA reflects increased risk for falling with score 18/30 and LOB with attempting tandem walking and stepping over step and pt is unable to complete any tandem walking. More shuffling of left foot with more challenging gait tasks. SLS right 5 sec and left 2 sec PT-OP-G Mobility & Gait Start: 08/03/24 13:04 Freq: Status: Active Protocol: Document 08/04/24 08:56 MB (Rec: 08/04/24 16:27 MB [id number]) OP Gait Assessment Comments Gait Comments Very slight weakness and decreased DF left ankle with mild whip motion with advancing left foot today and she has incresaed drag of left foot with harder balance tasks on FGA PT-OP-H Neuro Start: 08/03/24 13:04 Freq: Status: Active Protocol: Document 08/04/24 08:56 MB (Rec: 08/04/24 09:32 MB [id number]) Coordination Evaluation Upper Extremity Tests Left Finger to Nose Test Moderate Impairment Pronation/Supination Test Moderate Impairment Right Finger to Nose Test Minimal Impairment Pronation/Supination Test Minimal Impairment Lower Extremity Tests Left Heel on Parra Test Moderate Impairment Right Heel on Parra Test Minimal Impairment Comments Coordination Comments Toe tapping over opposite foot with min impairment on right and mod impairment on left Vital Signs Comments Vital Signs Comments Orthostatic assessment with BP and HR in LUE: supine: 138/72 , 83; standin/67, 96; standing 1' 130/68, 94. PT-OP-J Posture/Palpation/Skin Start: 08/03/24 13:04 Freq: Status: Active Protocol: Document 08/04/24 08:56 MB (Rec: 08/04/24 09:32 MB [id number]) Skin Assessment Other Assessments Skin Assessment Comments Pt with mild droop left side of mouth PT-OP-M Strength Start: 08/03/24 13:04 Freq: Status: Active Protocol: Document 08/04/24 08:56 MB (Rec: 08/04/24 16:27 MB [id number]) Shoulder Strength Shoulder Manual Muscle Testing Left Flexion 5 Normal Abduction (C5) 4+ Good+ Right Flexion 5 Normal Abduction (C5) 5 Normal Elbow/Forearm Strength Elbow and Forearm Manual Muscle Testing Left Flexion (C6) 4+ Good+ Extension (C7) 4+ Good+ Supination 4+ Good+ Right Flexion (C6) 5 Normal Extension (C7) 5 Normal Supination 5 Normal Hip Strength Hip Manual Muscle Testing Left Flexion (L2) 4+ Good+ Right Flexion (L2) 5 Normal Knee Strength Knee Manual Muscle Testing Left Flexion (S2) 4+ Good+ Extension (L3) 4+ Good+ Right Flexion (S2) 5 Normal Extension (L3) 5 Normal Ankle/Foot Strength Ankle and Foot Manual Muscle Testing Left Dorsiflexion (L4) 4+ Good+ Right Dorsiflexion (L4) 5 Normal Toe Strength Toe Manual Muscle Testing Left Great Toe Extension 4+ Good+ Right Great Toe Extension 5 Normal PT-OP-Q Treatments Start: 08/03/24 13:04 Freq: Status: Active Protocol: Document 08/25/24 10:38 MB (Rec: 08/25/24 11:23 MB [id number]) Therapeutic Exercises Sitting Exercises Band ankle DF with eversion Sitting Exercise Name HEP and handout: cues toes up and keep knees still Resistance Level 3 band Comments Feet on floor and combined DF and eversion Standing Exercises Ot[place] squat Standing Exercise Name HEP, updated on handout Reps/Minutes 30 reps Comments Used [employer] bar today Other Exercises Extensive HEP review Comments Reviewed [place] handout and order, provided handout with smaller photos Neuro Re-Education Treatment Balance Activities [place] SLS Details HEP and updated handout Comments 1 min each foot is goal, performed at [employer] bar today. Pt must touch bar almost every 5 sec on each leg today, up to a min [place] tightrope standing Details HEP and updated handout Comments 1 min each foot in front is goal, near ballet bar today Today, right foot behind 1 min , left foot behind 30 sec, 10 more sec and then finished last 20 sec PT-OP-T Assessment and Plan Start: 08/03/24 13:04 Freq: Status: Active Protocol: Document 08/25/24 10:38 MB (Rec: 08/25/24 11:23 MB [id number]) Physical Therapy Assessment Rehab Potential Rehabilitation Potential Good Evaluation Complexity Number of Personal Factors/Comorbidities 1-2 Number of Body Systems Impaired 3 Clinical Presentation at Evaluation Evolving Impairments Impairments Balance,Coordination, Functional Activities, Functional Mobility,Gait, Posture,Strength Goals 4 Impairment Lack fo HEP Jail Goal (LTG) Pt will perform progressive HEP with I including balance, LE strength and coordination tasks to improve c/o perceptual deficits and ability to perform ADLs. LTG Duration 6 weeks 3 Impairment Weakness in left leg Jail Goal (LTG) Pt will perform at least 9 reps STS in 30 sec to reflect improved functional strength in legs. LTG Duration 6 weeks 2 Impairment Evidence of imbalance Jail Goal (LTG) Pt will perform TUG in no more than 10 sec to improve balance with transfers and short gait. LTG Duration 6 weeks 1 Impairment FGA score 18/30, indicating high risk for falls X Ray Developer Goal (LTG) Pt will present with FGA score WNLs to decrease fall risk. LTG Duration 6 weeks Assessment Summary Assessment Completed HEP training today and will have one more visit for d/c, to check progress towards goals and for HEP review. Pt has done well with PT, has con't with left foot scuffing with balance challenges. Physical Therapy Plan Frequency and Duration Frequency of Treatment 2x/Week Duration of treatment (weeks) 6 Plan of Care Start Date 08/04/24 Plan of Care End Date 09/15/24 Therapeutic Interventions Therapeutic Interventions Balance Training,Canalithic Repositioning,Coordination Training,Gait Training,Home Exercise Program,Joint Mobilizations,Manual Therapy, Neuromuscular Re-education, Patient/Caregiver Education, Self-Care/Home Management,Soft Tissue Mobilization,Taping, Therapeutic Activities, Therapeutic Exercises, Vestibular Rehabilitation Modalities Cold Pack/Ice Massage,Electric Stimulation,Hot Packs, Ultrasound Next Visit Focus/Plan Next Note Type Discharge Summary
--- NOTE | 2024-09-01 09:32 | PT.OTN ---
Current Diagnoses Cerebral infarction, unspecified (09/01/24) Weakness (09/01/24) Physical Therapy Treatment Note PT-OP-A Visit Information Start: 08/03/24 13:04 Freq: Status: Active Protocol: Document 09/01/24 08:58 MB (Rec: 09/01/24 09:30 MB [id number]) Out-Patient Physical Therapy Visit Information Visit Information Visit Type Discharge Summary Visit Note [facility] with 6 approved per eval Progress note by 09/01/24 Visit Start Time 08:58 Visit Stop Time 09:32 Visit Number 6 Number of STAMP PAD FINISHER Visits 0 Evaluation Information Evaluation Date 08/04/24 PT-OP-B Current Condition Start: 08/03/24 13:04 Freq: Status: Active Protocol: Document 08/04/24 08:56 MB (Rec: 08/04/24 09:32 MB [id number]) Current Condition History of Current Condition Onset Date 07/19/24 Current Complaints Pt feels better now History of Current Condition Pt thinks that she had her stroke on 07/19/24. She noticed dropping things in the left hand, missing objects and having to think about picking up her left leg. Pt lives with . She is back to driving and does not report visual changes. PMH includes: pulmonary fibrosis, HTN, hyperlipidemia, DM and hypothyroidism. Pt denies speech changes and she does have a few mis-naming of things during assessment, first states she dropped things with her right hand and then dropped things with her left hand. Some slurred/speech changes noted by PT. Pt is [place] and has two hearing aides. Pt denies alcohol intake and states she drinks one cup of coffee in the morning Pt has no pain anywhere and she is sleeping well. She denies dizziness and light- headedenss. She denies falls and uses her walker at night if she gets up to pee. She doesn't have as much energy and wonders if that is the stroke. Prior Treatments and Tests MRI brain 07/21/24: IMPRESSION: Acute right thalamic lacunar infarct. No intracranial hemorrhage. Mild, diffuse cerebral volume loss. Moderate periventricular and subcortical white matter chronic microvascular ischemic changes. Treatment Goals Patient/Caregiver Goals Just to get through assessment and see if she needs PT. Pt would like some exercises to work on her balance. PT-OP-C Subjective Start: 08/03/24 13:04 Freq: Status: Active Protocol: Document 09/01/24 08:58 MB (Rec: 09/01/24 09:30 MB [id number]) OP-PT Subjective Patient Comments Patient Comments Pt states that her back is a little sore. She started a statin since the stroke and wonders if this is the reason. She got through the [employer] program once. PT-OP-D Balance Start: 08/03/24 13:04 Freq: Status: Active Protocol: Document 08/04/24 08:56 MB (Rec: 08/04/24 16:27 MB [id number]) Balance Tests Romberg Romberg Romberg EO and EC WNLs, self- limits tandem B and SLS Other Other Balance Tests Performed FGA reflects increased risk for falling with score 18/30 and LOB with attempting tandem walking and stepping over step and pt is unable to complete any tandem walking. More shuffling of left foot with more challenging gait tasks. SLS right 5 sec and left 2 sec PT-OP-G Mobility & Gait Start: 08/03/24 13:04 Freq: Status: Active Protocol: Document 08/04/24 08:56 MB (Rec: 08/04/24 16:27 MB [id number]) OP Gait Assessment Comments Gait Comments Very slight weakness and decreased DF left ankle with mild whip motion with advancing left foot today and she has incresaed drag of left foot with harder balance tasks on FGA PT-OP-H Neuro Start: 08/03/24 13:04 Freq: Status: Active Protocol: Document 08/04/24 08:56 MB (Rec: 08/04/24 09:32 MB [id number]) Coordination Evaluation Upper Extremity Tests Left Finger to Nose Test Moderate Impairment Pronation/Supination Test Moderate Impairment Right Finger to Nose Test Minimal Impairment Pronation/Supination Test Minimal Impairment Lower Extremity Tests Left Heel on Parra Test Moderate Impairment Right Heel on Parra Test Minimal Impairment Comments Coordination Comments Toe tapping over opposite foot with min impairment on right and mod impairment on left Vital Signs Comments Vital Signs Comments Orthostatic assessment with BP and HR in LUE: supine: 138/72 , 83; standin/67, 96; standing 1' 130/68, 94. PT-OP-J Posture/Palpation/Skin Start: 08/03/24 13:04 Freq: Status: Active Protocol: Document 08/04/24 08:56 MB (Rec: 08/04/24 09:32 MB [id number]) Skin Assessment Other Assessments Skin Assessment Comments Pt with mild droop left side of mouth PT-OP-M Strength Start: 08/03/24 13:04 Freq: Status: Active Protocol: Document 08/04/24 08:56 MB (Rec: 08/04/24 16:27 MB [id number]) Shoulder Strength Shoulder Manual Muscle Testing Left Flexion 5 Normal Abduction (C5) 4+ Good+ Right Flexion 5 Normal Abduction (C5) 5 Normal Elbow/Forearm Strength Elbow and Forearm Manual Muscle Testing Left Flexion (C6) 4+ Good+ Extension (C7) 4+ Good+ Supination 4+ Good+ Right Flexion (C6) 5 Normal Extension (C7) 5 Normal Supination 5 Normal Hip Strength Hip Manual Muscle Testing Left Flexion (L2) 4+ Good+ Right Flexion (L2) 5 Normal Knee Strength Knee Manual Muscle Testing Left Flexion (S2) 4+ Good+ Extension (L3) 4+ Good+ Right Flexion (S2) 5 Normal Extension (L3) 5 Normal Ankle/Foot Strength Ankle and Foot Manual Muscle Testing Left Dorsiflexion (L4) 4+ Good+ Right Dorsiflexion (L4) 5 Normal Toe Strength Toe Manual Muscle Testing Left Great Toe Extension 4+ Good+ Right Great Toe Extension 5 Normal PT-OP-Q Treatments Start: 08/03/24 13:04 Freq: Status: Active Protocol: Document 09/01/24 08:58 MB (Rec: 09/01/24 09:30 MB [id number]) Therapeutic Exercises Sitting Exercises 30 sec STS Comments 11 reps Band ankle DF with eversion Comments Practiced again today d/t challenging for pt Other Exercises Extensive HEP review Comments Verbal review today Neuro Re-Education Treatment Balance Activities TUG Comments 8 sec today FGA Comments FGA score is 25/30, which is improved and WNLs PT-OP-T Assessment and Plan Start: 08/03/24 13:04 Freq: Status: Active Protocol: Document 09/01/24 08:58 MB (Rec: 09/01/24 09:30 MB [id number]) Physical Therapy Assessment Rehab Potential Rehabilitation Potential Good Evaluation Complexity Number of Personal Factors/Comorbidities 1-2 Number of Body Systems Impaired 3 Clinical Presentation at Evaluation Evolving Impairments Impairments Balance,Coordination, Functional Activities, Functional Mobility,Gait, Posture,Strength Goals 4 Impairment Lack fo HEP Slot Floorperson Goal (LTG) Pt will perform progressive HEP with I including balance, LE strength and coordination tasks to improve c/o perceptual deficits and ability to perform ADLs. 09/01/24: Verbally reviewed today on d/c and pt demo's ankle DF and eversion LTG Duration Met goal 3 Impairment Weakness in left leg Custodial Goal (LTG) Pt will perform at least 9 reps STS in 30 sec to reflect improved functional strength in legs. 09/01/24: Pt performs 11 reps in 30 sec LTG Duration Surpassed goal 2 Impairment Evidence of imbalance Slot Floorperson Goal (LTG) Pt will perform TUG in no more than 10 sec to improve balance with transfers and short gait. 09/01/24: TUG in 8 sec today LTG Duration Surpassed goal 1 Impairment FGA score 18/30, indicating high risk for falls Custodial Goal (LTG) Pt will present with FGA score WNLs to decrease fall risk. 09/01/24: Score is 25/30 today, WNLs LTG Duration Met goal Assessment Summary Assessment O2 sats 88% after balance testing and HR 87 BPM. Pt with history of pulmonary fibrosis . With sitting rest break, O2 sats increase to 92%. Right index finger reads lower than left and pt has [place] after FGA testing. BP LUE after 5' sitting break after FGA: 124/ 82, 85. Pt has met FGA and HEP goals and surpassed 30 sec STS and TUG goals. She has done a great job with PT and is ready to d/c. Physical Therapy Plan Frequency and Duration Frequency of Treatment 2x/Week Duration of treatment (weeks) 6 Plan of Care Start Date 08/04/24 Plan of Care End Date 09/15/24 Therapeutic Interventions Therapeutic Interventions Balance Training,Canalithic Repositioning,Coordination Training,Gait Training,Home Exercise Program,Joint Mobilizations,Manual Therapy, Neuromuscular Re-education, Patient/Caregiver Education, Self-Care/Home Management,Soft Tissue Mobilization,Taping, Therapeutic Activities, Therapeutic Exercises, Vestibular Rehabilitation Modalities Cold Pack/Ice Massage,Electric Stimulation,Hot Packs, Ultrasound Next Visit Focus/Plan Next Note Type Discharge Summary
== END 2024-09-01 12:40 | disposition home or self-care (01) ==
LOC: PHYS 09:00
PROVIDERS: Family Provider Internal Medicine; PCP Internal Medicine; Referring Provider Internal Medicine; Visit Provider Internal Medicine
DX: I63.9 Cerebral infarction, unspecified (principal); R53.1 Weakness
CPT/HCPCS: 97110; 97112; 97535

== ENCOUNTER → 2024-11-04 11:07 | Outpatient (CLI) | payer MEDICARE, SELFPAY ==
[2024-07-20 23:51] VITALS: BMI 23.5
[2024-11-04 12:12] LABS: Hemoglobin A1C% w Est Avg Glu 5.7 % (4.0-6.0)
[2024-11-04 12:16] LABS: Alanine Aminotransferase 43 IU/L (<35); Albumin 4.2 g/dL (3.5-5.0); Albumin Globulin Ratio 1.1 (1.0-2.8); Alkaline Phosphatase 77 U/L (38-126); Aspartate Aminotransferase 42 IU/L (14-36); BUN Creatinine Ratio 25.3 (6-22); Bilirubin Total 0.7 mg/dL (0.2-1.3); Blood Urea Nitrogen 22 mg/dL (7-17); Calcium 9.2 mg/dL (8.4-10.2); Carbon Dioxide 23 mmol/L (22-32); Chloride 107 mmol/L (98-107); Cholesterol 136 mg/dL (140-199); Estimated Glomerular Filt Rate > 60 mL/min (>60); Glucose 107 mg/dL (70-99); HDL Cholesterol 33 mg/dL (40-60); HEMOLYSIS < 15 (0-50); LDL Cholesterol Calculated 80 mg/dL (<100); Potassium 4.4 mmol/L (3.4-5.1); Sodium 140 mmol/L (137-145); Total Protein 8.2 g/dL (6.3-8.2); Triglycerides 114 mg/dL (35-150)
== END ==
PROVIDERS: Family Provider Internal Medicine; PCP Internal Medicine; Referring Provider Internal Medicine; Visit Provider Internal Medicine
DX: E11.29 Type 2 diabetes mellitus with other diabetic kidney complication (principal); E78.2 Mixed hyperlipidemia; I67.9 Cerebrovascular disease, unspecified; R80.9 Proteinuria, unspecified
CPT/HCPCS: 36415; 80053; 80061; 83036

== ENCOUNTER → 2024-11-05 10:02 | Outpatient (CLI) | payer MEDICARE, SELFPAY ==
[2024-07-20 23:51] VITALS: BMI 23.5
[2024-11-08 10:11] LABS: Fecal Immunochemical Test Negative (Negative)
== END ==
PROVIDERS: Family Provider Internal Medicine; PCP Internal Medicine; Referring Provider Internal Medicine; Visit Provider Internal Medicine
DX: I67.9 Cerebrovascular disease, unspecified (principal); E78.2 Mixed hyperlipidemia
CPT/HCPCS: 82274

== ENCOUNTER → 2025-01-03 15:32 | Outpatient (CLI) | payer MEDICARE, SELFPAY ==
[2024-07-20 23:51] VITALS: BMI 23.5
[2025-01-03 16:36] LABS: Hematocrit 41.9 % (36-46); Hemoglobin 14.2 g/dL (12.0-16.0); Mean Corpuscular HGB Conc 33.9 % (30-36); Mean Corpuscular Hemoglobin 31.0 PG (26-34); Mean Corpuscular Volume 91.2 fL (80-100); Platelet Count 279 X10^3/uL (150-400)
[2025-01-03 17:19] LABS: Vitamin B12 Reflex MMA if <400 777 pg/mL (239-931)
[2025-01-06 15:10] LABS: Albumin 3.4 g/dL (2.9-4.4); Alpha-1-Globulin 0.3 g/dL (0.0-0.4); Alpha-2-Globulin 1.1 g/dL (0.4-1.0); Gamma Globulin 1.8 g/dL (0.4-1.8)
== END ==
PROVIDERS: PCP Internal Medicine; Referring Provider Internal Medicine; Visit Provider Internal Medicine
DX: E53.8 Deficiency of other specified B group vitamins (principal); R77.9 Abnormality of plasma protein, unspecified
CPT/HCPCS: 36415; 82607; 84155; 84165; 85027

== ENCOUNTER → 2025-02-10 12:13 | Outpatient (CLI) | payer MEDICARE, SELFPAY ==
[2024-07-20 23:51] VITALS: BMI 23.5
[2025-02-14 13:41] LABS: Immunoglobulin G,Serum 2024 mg/dL (586-1602)
== END ==
PROVIDERS: PCP Internal Medicine; Referring Provider Internal Medicine; Visit Provider Internal Medicine
DX: R77.8 Other specified abnormalities of plasma proteins (principal)
CPT/HCPCS: 36415; 82784; 84155; 86334; 86335

== ENCOUNTER → 2025-04-13 12:24 | Outpatient (CLI) | payer MEDICARE, SELFPAY ==
[2024-07-20 23:51] VITALS: BMI 23.5
== END ==
PROVIDERS: PCP Internal Medicine; Visit Provider Physician Assistant Medical
DX: J02.9 Acute pharyngitis, unspecified (principal); R39.15 Urgency of urination
CPT/HCPCS: 87077; 87086

== ENCOUNTER → 2025-05-09 07:32 | Outpatient (CLI) | payer MEDICARE, SELFPAY ==
[2024-07-20 23:51] VITALS: BMI 23.5
== END ==
PROVIDERS: PCP Internal Medicine; Visit Provider Chiropractor
DX: R30.0 Dysuria (principal)
CPT/HCPCS: 87077; 87086; 87186